=== PATIENT | female | born 1985 | race Caucasian/White ===

== ENCOUNTER 2021-03-20 12:27 | Inpatient (IN) | payer OTHER, MEDICAID, SELFPAY ==
[2021-03-20 12:31] VITALS: BP 129/98; PULSE 110; RESP 18; TEMP 36.9; O2SAT 100; BMI 45.7
--- NOTE | 2021-03-20 12:40 | PC.NURSE ---
Pt belongs to [facility]. residential staff member with patient is gasper Meadows-supervisor edging,
--- NOTE | 2021-03-20 13:19 | ED_ITS ---
HPI - Psych General Chief Complaint: Psychiatric Symptoms Stated Complaint: crisis Time Seen by Provider: 03/20/21 13:18 Source: patient Mode of arrival: ambulatory Limitations: no limitations History of Present Illness HPI Narrative: 35-year-old female with history of borderline personality disorder, anxiety, severe depression with chronic history of self-injury by cutting who presents to the ER from a intermediate with increasing suicidal ideation x1 week with plans to cut herself. She has had recent escalation in her thoughts and behaviors with attempts of self-harm at a intermediate. She reports seeing a very sharp kitchen knife and grabbing and cutting her left forearm. She does have 1 superficial laceration to her left forearm that was glued shut at [facility] a few days ago. She was discharged back to the intermediate. She presents back today with worsening suicidal thoughts. She states she recently lost her grandfather is having a hard time coping. She has been cutting since 1998. She feels like she needs to be admitted inpatient psychiatry. She reports compliance with all her medications and she denies any alcohol or drug use. She has been speaking with her therapist, last was on Tuesday. MD complaint: suicidal ideation and feels depressed Onset (ago): week(s) (1) Duration: constant and getting worse History of same: Yes Relieving factors: none Exacerbating factors: none Context: significant life stressor Associated psychiatric symptoms: depression and suicidal ideation Associated symptoms: denies other symptoms Treatments prior to arrival: none If self harm: admits thoughts of self harm, has plan and has acted on plan Related Data Home Medications Medication Instructions Recorded Confirmed albuterol sulfate 90 mcg/actuation 2 puff INHALATION QID PRN 03/20/21 03/20/21 aerosol inhaler (ProAir HFA) atorvastatin 10 mg tablet 10 mg PO BEDTIME 03/20/21 03/20/21 cholecalciferol (vitamin D3) 50 50 mcg PO DAILY 03/20/21 03/20/21 mcg (2,000 unit) tablet (Vitamin D3) citalopram 40 mg tablet 1 tab PO DAILY 03/20/21 03/20/21 clonazepam 1 mg tablet 1 mg PO BID 03/20/21 03/20/21 clonazepam 1 mg tablet 2 mg PO BEDTIME PRN 03/20/21 03/20/21 clozapine 100 mg tablet 50 mg PO DAILY 03/20/21 03/20/21 clozapine 100 mg tablet 150 mg PO BEDTIME 03/20/21 03/20/21 clozapine 200 mg tablet 200 mg PO BEDTIME 03/20/21 03/20/21 cyproheptadine 4 mg tablet 8 mg PO BEDTIME 03/20/21 03/20/21 docusate sodium 100 mg capsule 100 mg PO BID 03/20/21 03/20/21 (Colace) ibuprofen 400 mg tablet 400 mg PO Q8H PRN 03/20/21 03/20/21 levothyroxine 75 mcg tablet 75 mcg PO DAILY 03/20/21 03/20/21 loratadine 10 mg tablet (Claritin) 10 mg PO DAILY 03/20/21 03/20/21 melatonin 3 mg tablet 6 mg PO BEDTIME 03/20/21 03/20/21 omeprazole 20 mg capsule,delayed 20 mg PO DAILY 03/20/21 03/20/21 release prazosin 2 mg capsule 6 mg PO BEDTIME 03/20/21 03/20/21 quetiapine 100 mg tablet (Seroquel) 100 mg PO BID@0800,1600 03/20/21 03/20/21 quetiapine 200 mg tablet (Seroquel) 200 mg PO BEDTIME 03/20/21 03/20/21 quetiapine 50 mg tablet (Seroquel) 50 mg PO DAILY PRN 03/20/21 03/20/21 Allergies Allergy/AdvReac Type Severity Reaction Status Date / Time clindamycin [CLINDAMYCIN] Allergy Unknown UNKNOWN Unverified 11/15/19 17:13 codeine [CODEINE] Allergy Unknown UNKNOWN Unverified 11/15/19 17:13 erythromycin base Allergy Unknown UNKNOWN Unverified 11/15/19 17:13 [ERYTHROMYCIN BASE] Macrolide Antibiotics Allergy Unknown UNKNOWN Unverified 11/15/19 17:13 [MACROLIDE ANTIBIOTICS] meperidine [From DEMEROL] Allergy Unknown UNKNOWN Unverified 11/15/19 17:13 Penicillins [PENICILLINS] Allergy Unknown UNKNOWN Unverified 11/15/19 17:13 Sulfa (Sulfonamide Allergy Unknown UNKNOWN Unverified 11/15/19 17:13 Antibiotics) [SULFA (SULFONAMIDE ANTIBIOTICS)] Review of Systems Review of Systems: Constitutional: No Fever, No Chills ENT/Mouth: No sore throat, No Rhinorrhea Eyes: No Eye Pain, No Swelling, No Redness Cardiovascular: No Chest Pain, No SOB Respiratory: No Cough, No Sputum, No Wheezing, No dyspnea Gastrointestinal: No Nausea, No Vomiting, No Diarrhea, No abdominal Pain Genitourinary: No Dysuria, No Urinary Frequency, No Hematuria Musculoskeletal: No joint pain, No Myalgias Skin: + Skin Lesions, No rash Neuro: No Weakness, No Numbness, No Dizziness, No Headache Psych: + Anxiety/Panic, + Depression, +SI, No HI, No AH, No VH Heme/Lymph: No Bruising, No Lymphadenopathy [facility] Past Medical History Medical History Behavioral change Psychiatric complaint Self-injurious behavior Social History Social History Advance Directives: No Advance Directives Information Provided: No Patient : No Physical Exam Vital Signs: Vital Signs: Last Vital Signs Temp 98.5 F 03/20/21 12:31 Pulse 110 H 03/20/21 12:31 Resp 18 03/20/21 12:31 BP 129/98 H 03/20/21 12:31 Pulse Ox 100 03/20/21 12:31 BMI result Body Mass Index 45.7 Appearance: Alert. Oriented X3. No acute distress. Eyes: Pupils equal, round and reactive to light. lateral strabismus of each eye ENT: Pharynx normal. Neck: Normal inspection. Neck supple. CVS: Normal heart rate and rhythm. Pulses normal. Respiratory: No respiratory distress. Breath sounds normal. Abdomen: Soft and nontender. +BS x4 Skin: Skin warm and dry. Normal skin color. Normal skin turgor. No rashes. Extremities: No lower extremity edema. bilateral forearms with extensive scarri ng from prior cutting, left dorsal forearm with a 4 cm superficial linear laceration with purple Dermabond in place, no bleeding, no evidence of infection Neuro: Oriented X 3. No motor deficit. No sensory deficit. CN II- XII Course Course Course Narrative: 35-year-old female with history of borderline personality disorder PTSD, depression, anxiety, cutting who presents to the ER with increased suicidal ideation and depression with recent cutting of left forearm. She feels like she needs inpatient level of care at this time. Will get metabolic workup and medically clear, have BHN and evaluate her. Old records reviewed in she was last admitted here on M5 for 10 days in September of 2019. Reevaluation(s) Reevaluation #1: Medical workup is unremarkable. Will place and physician observation at this time. Physician observation started at 3:15pm. Patient placed in physician observation because patient is awaiting [facility] evaluation for the possible need of inpatient psych admission. At the time observation was started patient's vital signs were stable. Patient is alert and oriented. Neuro exam is non-focal. CV: RRR and lungs are clear. Will continue to monitor. MDM - Psych Lab Data Result diagrams: 03/20/21 14:43 03/20/21 14:43 Labs: Lab Results 03/20/21 03/20/21 03/20/21 Range/Units 13:33 13:34 13:34 WBC (4.8-10.8) X10*3/uL RBC (4.20-5.50) X10*6/uL Hgb (12.0-16.0) g/dl Hct (37.0-47.0) % MCV (80.0-98.0) fL MCH (27.0-33.0) pg MCHC (31.0-35.0) g/dl RDW (11.0-16.0) % Plt Count (160-400) X10*3/uL MPV (9.4-12.3) fL Immature Gran % (Auto) (0.0-0.4) % Neut % (Auto) (45-73) % Lymph % (Auto) (20-40) % [place] % (Auto) (2-11) % Eos % (Auto) (0-4) % Baso % (Auto) (0-2) % Lymph # (Auto) (1.2-4.9) X10*3/uL [place] # (Auto) (0.1-1.2) X10*3/uL Eos # (Auto) (0.0-0.4) X10*3/uL Baso # (Auto) (0.0-0.2) X10*3/uL Abs Immat Gran (auto) (0.00-0.03) X10*3/uL Absolute Neuts (auto) (2.0-8.3) x10*3/uL Absolute Nucleated RBC (0.0-0.012) X10*3/uL Nucleated RBC % (auto) (0.0-0.2) /100WBC Sodium (135-145) mmol/L Potassium (3.3-5.1) mmol/L Chloride (96-108) mmol/L Carbon Dioxide (22-29) mmol/L Anion Gap (12-20) BUN (9-16) mg/dL Creatinine (0.5-1.4) mg/dL Estim Creat Clear Calc Estimated GFR Random Glucose (60-115) mg/dL Calcium (8.4-10.2) mg/dL Total Bilirubin (0.0-1.0) mg/dL AST (5-31) U/L ALT (0-31) U/L Alkaline Phosphatase (39-117) U/L Total Protein (6.5-8.0) g/dL Albumin (3.5-5.0) g/dL Urine Color STRAW Urine Appearance CLEAR Urine pH 5.5 (5.0-8.0) Ur Specific [place] 1.010 (1.005-1.025) Urine Protein NEG (NEG-TRACE) MG/DL Urine Glucose (UA) NEG (NEG) MG/DL Urine Ketones NEG (NEG) MG/DL Urine Blood NEG (NEG) Urine Nitrite NEG (NEG) Ur Leukocyte Esterase NEG (NEG) Urine Test NEGATIVE (NEGATIVE) Urine Opiates Screen (Not Detect) Urine Fentanyl Screen (Not Detect) Ur Barbiturates Screen (Not Detect) Ur Phencyclidine Scrn (Not Detect) Ur Amphetamines Screen (Not Detect) U Benzodiazepines Scrn (Not Detect) Urine Cocaine Screen (Not Detect) U Marijuana (THC) Screen (Not Detect) COVID-19 (ANGÉLICA) Negative (Negative) COVID-19 Clin Com See Note 03/20/21 03/20/21 03/20/21 Range/Units 13:34 14:43 14:43 WBC 10.0 (4.8-10.8) X10*3/uL RBC 4.43 (4.20-5.50) X10*6/uL Hgb 12.9 (12.0-16.0) g/dl Hct 38.8 (37.0-47.0) % MCV 87.6 (80.0-98.0) fL MCH 29.1 (27.0-33.0) pg MCHC 33.2 (31.0-35.0) g/dl RDW 12.9 (11.0-16.0) % Plt Count 218 (160-400) X10*3/uL MPV 11.2 (9.4-12.3) fL Immature Gran % (Auto) 0.4 (0.0-0.4) % Neut % (Auto) 70.8 (45-73) % Lymph % (Auto) 23.3 (20-40) % [place] % (Auto) 5.2 (2-11) % Eos % (Auto) 0.0 (0-4) % Baso % (Auto) 0.3 (0-2) % Lymph # (Auto) 2.3 (1.2-4.9) X10*3/uL [place] # (Auto) 0.5 (0.1-1.2) X10*3/uL Eos # (Auto) 0.0 (0.0-0.4) X10*3/uL Baso # (Auto) 0.0 (0.0-0.2) X10*3/uL Abs Immat Gran (auto) 0.04 H (0.00-0.03) X10*3/uL Absolute Neuts (auto) 7.1 (2.0-8.3) x10*3/uL Absolute Nucleated RBC 0.000 (0.0-0.012) X10*3/uL Nucleated RBC % (auto) 0.0 (0.0-0.2) /100WBC Sodium 139 (135-145) mmol/L Potassium 4.1 (3.3-5.1) mmol/L Chloride 106 (96-108) mmol/L Carbon Dioxide 23 (22-29) mmol/L Anion Gap 14 (12-20) BUN 8 L (9-16) mg/dL Creatinine 0.99 (0.5-1.4) mg/dL Estim Creat Clear Calc 105.2 Estimated GFR > 60 Random Glucose 112 (60-115) mg/dL Calcium 10.1 (8.4-10.2) mg/dL Total Bilirubin 0.2 (0.0-1.0) mg/dL AST 14 (5-31) U/L ALT 18 (0-31) U/L Alkaline Phosphatase 90 (39-117) U/L Total Protein 7.9 (6.5-8.0) g/dL Albumin 4.5 (3.5-5.0) g/dL Urine Color Urine Appearance Urine pH (5.0-8.0) Ur Specific [place] (1.005-1.025) Urine Protein (NEG-TRACE) MG/DL Urine Glucose (UA) (NEG) MG/DL Urine Ketones (NEG) MG/DL Urine Blood (NEG) Urine Nitrite (NEG) Ur Leukocyte Esterase (NEG) Urine Test (NEGATIVE) Urine Opiates Screen Not Detected (Not Detect) Urine Fentanyl Screen Not Detected (Not Detect) Ur Barbiturates Screen Not Detected (Not Detect) Ur Phencyclidine Scrn Not Detected (Not Detect) Ur Amphetamines Screen Not Detected (Not Detect) U Benzodiazepines Scrn Not Detected (Not Detect) Urine Cocaine Screen Not Detected (Not Detect) U Marijuana (THC) Screen Not Detected (Not Detect) COVID-19 (ANGÉLICA) (Negative) COVID-19 Clin Com Discharge Plan Discharge Clinical Impression: Depression Qualifiers: Depression Type: major depressive disorder Major depression recurrence: recurrent Active/Remission status: currently active Major depression episode severity: severe Psychotic features: without psychotic features Qualified Code(s): F33.2 - Major depressive disorder, recurrent severe without psychotic features Patient Disposition: Still a Patient Prescriptions: No Action citalopram 40 mg tablet 1 tab PO DAILY RF: 0 atorvastatin 10 mg Tablet 10 mg PO BEDTIME RF: 0 clozapine 100 mg tablet 150 mg PO BEDTIME RF: 0 clozapine 100 mg tablet 50 mg PO DAILY RF: 0 quetiapine [Seroquel] 200 mg Tablet 200 mg PO BEDTIME RF: 0 clonazepam 1 mg Tablet 2 mg PO BEDTIME PRN (Reason: Anxiety) RF: 0 clonazepam 1 mg Tablet 1 mg PO BID RF: 0 melatonin 3 mg Tablet 6 mg PO BEDTIME RF: 0 quetiapine [Seroquel] 100 mg Tablet 100 mg PO BID@0800,1600 RF: 0 levothyroxine 75 mcg Tablet 75 mcg PO DAILY RF: 0 cyproheptadine 4 mg Tablet 8 mg PO BEDTIME RF: 0 ibuprofen 400 mg Tablet 400 mg PO Q8H PRN (Reason: Pain (Scale Score 4-6)) RF: 0 docusate sodium [Colace] 100 mg Capsule 100 mg PO BID RF: 0 omeprazole [Prilosec] 20 mg Capsule,Delayed Release(Dr/Ec) 20 mg PO DAILY RF: 0 albuterol sulfate [ProAir HFA] 90 mcg/actuation Hfa Aerosol Inhaler 2 puff INHALATION QID PRN (Reason: Shortness Of Breath) RF: 0 loratadine [Claritin] 10 mg Tablet 10 mg PO DAILY RF: 0 prazosin 2 mg capsule 6 mg PO BEDTIME RF: 0 clozapine 200 mg tablet 200 mg PO BEDTIME RF: 0 quetiapine [Seroquel] 50 mg Tablet 50 mg PO DAILY PRN (Reason: Anxiety) RF: 0 cholecalciferol (vitamin D3) [Vitamin D3] 50 mcg (2,000 unit) Tablet 50 mcg PO DAILY RF: 0
--- NOTE | 2021-03-20 13:37 | PC.NURSE ---
essie, reports cutting her arm 2 days ago and has dermabond applied by [facility], reports si for 1 week
[2021-03-20 13:47] LABS: Appearance Urine CLEAR; Color Urine STRAW; Glucose Urine UA NEG (NEG); Leukocyte Esterase Urine NEG (NEG); Nitrite Urine NEG (NEG); PH 5.5 (5.0-8.0); UPreg QC Valid YES; Urine Blood NEG (NEG); Urine Ketones NEG (NEG); Urine Protein NEG (NEG-TRACE)
[2021-03-20 13:49] LABS: Urine Pregnancy NEGATIVE (NEGATIVE)
[2021-03-20 14:01] LABS: COVID-19 Test Negative (Negative); IDNOW Serial# 9DD0AD1C
[2021-03-20 14:02] LABS: Amphetamine Screen Urine Not Detected (Not Detect); Barbiturates, Urine Not Detected (Not Detect); Benzodiazepines Screen Urine Not Detected (Not Detect); Cannabinoid Screen Urine Not Detected (Not Detect); Cocaine Screen Urine Not Detected (Not Detect); Fentanyl, urine Not Detected (Not Detect); Opiate Screen Urine Not Detected (Not Detect); Phencyclidine Screen Urine Not Detected (Not Detect)
[2021-03-20 14:47] LABS: MANUAL DIFF FLAG NO
[2021-03-20 14:50] LABS: Basophils Percent Auto 0.3 % (0-2); Hematocrit 38.8 % (37.0-47.0); Hemoglobin 12.9 g/dl (12.0-16.0); Imm Gran Abs Auto 0.04 X10*3/uL (0.00-0.03); Imm Gran Pct Auto 0.4 % (0.0-0.4); Lymphocytes Absolute Auto 2.3 X10*3/uL (1.2-4.9); Lymphocytes Percent Auto 23.3 % (20-40); Mean Corpuscular HGB Conc 33.2 g/dl (31.0-35.0); Mean Corpuscular Hemoglobin 29.1 pg (27.0-33.0); Mean Corpuscular Volume 87.6 fL (80.0-98.0); Mean Platelet Volume 11.2 fL (9.4-12.3); Monocytes Absolute Auto 0.5 X10*3/uL (0.1-1.2); Monocytes Percent Auto 5.2 % (2-11); Neutrophils Absolute Auto 7.1 x10*3/uL (2.0-8.3); Neutrophils Percent Auto 70.8 % (45-73); Platelet Count 218 X10*3/uL (160-400); Red Blood Count 4.43 X10*6/uL (4.20-5.50); Red Cell Distribution Width 12.9 % (11.0-16.0)
[2021-03-20 15:05] LABS: Alanine Aminotransferase 18 U/L (0-31); Albumin Level 4.5 g/dL (3.5-5.0); Alkaline Phosphatase 90 U/L (39-117); Anion Gap 14 (12-20); Aspartate Amino Transferase 14 U/L (5-31); Bilirubin Total 0.2 mg/dL (0.0-1.0); Blood Urea Nitrogen 8 mg/dL (9-16); Calcium 10.1 mg/dL (8.4-10.2); Carbon Dioxide 23 mmol/L (22-29); Chloride 106 mmol/L (96-108); Creatinine Clr Calc Pharmacy 105.2; Estimated Glomerular Filt Rate > 60; Glucose Random 112 mg/dL (60-115); Potassium 4.1 mmol/L (3.3-5.1); Sodium 139 mmol/L (135-145); Total Protein 7.9 g/dL (6.5-8.0)
[2021-03-20] MEDS: clonazePAM 1 MG TABLET 2 MG PO (15:41)
--- NOTE | 2021-03-20 17:07 | PC.NURSE ---
Patient is alert and oriented spoke with Shireen on the care team and was instructed to refer pt to [facility] for eval. Pt is aware of plan of care is compliant and awaiting eval
--- NOTE | 2021-03-20 18:24 | PC.NURSE ---
Patient being evaluated at this time
[2021-03-20] MEDS: Melatonin 3 MG TABLET 6 MG PO (21:15)
[2021-03-20] MEDS: Docusate Sodium 100 MG CAPSULE PO (21:15)
[2021-03-20] MEDS: QUEtiapine Fumarate 200 MG TABLET PO (21:16)
[2021-03-20] MEDS: clonazePAM 1 MG TABLET PO (21:16)
[2021-03-20] MEDS: Prazosin HCL 1 MG CAPSULE 6 MG PO (21:16)
[2021-03-20] MEDS: Atorvastatin Calcium 10 MG TABLET PO (21:16)
[2021-03-20 21:18] VITALS: BP 124/90; PULSE 82; RESP 18; TEMP 36.1; O2SAT 97
[2021-03-20] MEDS: cloZAPine 100 MG TABLET 350 MG PO (22:04)
[2021-03-20] MEDS: Cyproheptadine HCl 4 MG TABLET 8 MG PO (22:05)
[2021-03-21] MEDS: Omeprazole 20 MG CAPSULE.DR PO (05:55)
[2021-03-21] MEDS: Levothyroxine Sodium 75 MCG TABLET PO (05:55)
[2021-03-21 06:14] VITALS: BP 121/63; PULSE 92; RESP 20; TEMP 36.8
--- NOTE | 2021-03-21 06:52 | PC.NURSE ---
Patient slept through the night, no distress observed/reported, medication compliant, behavior appropriate, disposition per [facility] voluntary inpatient bed search, VSS, will continue to monitor.
[2021-03-21] MEDS: Docusate Sodium 100 MG CAPSULE PO ×2 (09:12→20:27)
[2021-03-21] MEDS: Cholecalciferol (Vitamin D3) 25 MCG TABLET 50 MCG PO (09:12)
[2021-03-21] MEDS: Escitalopram Oxalate 20 MG TABLET PO (09:12)
[2021-03-21] MEDS: QUEtiapine Fumarate 100 MG TABLET PO ×2 (09:12→16:43)
[2021-03-21] MEDS: Loratadine 10 MG TABLET PO (09:12)
[2021-03-21] MEDS: clonazePAM 1 MG TABLET PO ×2 (09:13→20:17)
[2021-03-21 09:42] VITALS: BP 97/60; PULSE 88; RESP 16; TEMP 37.1; O2SAT 96
--- NOTE | 2021-03-21 10:30 | PC.NURSE ---
pt bp low this am, holding po clozaril until bp improved.
[2021-03-21 11:20] VITALS: BP 125/74; PULSE 82; RESP 18; O2SAT 97
--- NOTE | 2021-03-21 11:20 | PC.NURSE ---
bp improved, po clozaril given
[2021-03-21] MEDS: cloZAPine 25 MG TABLET 50 MG PO (11:21)
[2021-03-21 15:39] VITALS: BP 135/95; PULSE 83; TEMP 36.5; O2SAT 99
--- NOTE | 2021-03-21 16:47 | PC.NURSE ---
pt appears to have bright affect, took po meds w/o issue. conversing w staff, asking for print out activities. can i have some first grade spelling and phonics, please? . pt in and out of room reporting different shows on tv.
--- NOTE | 2021-03-21 18:41 | PC.NURSE ---
report taken from lilia moy. Pt in room at this time watching tv. Pt interacting well with staff and asked for worksheets to keep her busy. Printed out for patient. Pt in nad will continue to monitor
[2021-03-21] MEDS: Prazosin HCL 1 MG CAPSULE 6 MG PO (20:18)
[2021-03-21] MEDS: clonazePAM 1 MG TABLET 2 MG PO (20:18)
[2021-03-21] MEDS: QUEtiapine Fumarate 200 MG TABLET PO (20:19)
[2021-03-21] MEDS: Melatonin 3 MG TABLET 6 MG PO (20:19)
[2021-03-21] MEDS: Atorvastatin Calcium 10 MG TABLET PO (20:20)
[2021-03-21] MEDS: cloZAPine 100 MG TABLET 350 MG PO (20:21)
[2021-03-21] MEDS: Cyproheptadine HCl 4 MG TABLET 8 MG PO (20:21)
[2021-03-22] MEDS: Omeprazole 20 MG CAPSULE.DR PO (05:55)
[2021-03-22] MEDS: Levothyroxine Sodium 75 MCG TABLET PO (05:55)
--- NOTE | 2021-03-22 06:26 | PC.NURSE ---
Patient slept through the night, no distress observed/reported, medication compliant, behavior appropriate, disposition per [facility] voluntary inpatient bed search, VSS, will continue to monitor
--- NOTE | 2021-03-22 07:42 | PC.NURSE ---
Pt resting quietly in room, watching TV. No complaints at this time. forearm injuries healing w/o s/s infection. Pt has no complaints, has eaten full breakfast
[2021-03-22] MEDS: Escitalopram Oxalate 20 MG TABLET PO (08:29)
[2021-03-22] MEDS: Docusate Sodium 100 MG CAPSULE PO ×2 (08:29→20:01)
[2021-03-22] MEDS: Cholecalciferol (Vitamin D3) 25 MCG TABLET 50 MCG PO (08:29)
[2021-03-22] MEDS: clonazePAM 1 MG TABLET PO ×2 (08:29→20:01)
[2021-03-22] MEDS: Loratadine 10 MG TABLET PO (08:29)
[2021-03-22] MEDS: QUEtiapine Fumarate 100 MG TABLET PO ×2 (08:29→16:06)
[2021-03-22] MEDS: cloZAPine 25 MG TABLET 50 MG PO (09:22)
--- NOTE | 2021-03-22 13:18 | PC.NURSE ---
Pt has been calm, in room mostly, eating and drinking. No self harm behaviours during this shift. wounds left forearm healing.
[2021-03-22] MEDS: Melatonin 3 MG TABLET 6 MG PO (20:01)
[2021-03-22] MEDS: Prazosin HCL 1 MG CAPSULE 6 MG PO (20:01)
[2021-03-22] MEDS: QUEtiapine Fumarate 200 MG TABLET PO (20:01)
[2021-03-22] MEDS: Atorvastatin Calcium 10 MG TABLET PO (20:01)
[2021-03-22 20:09] VITALS: BP 105/70; PULSE 84; TEMP 36.5; O2SAT 96
[2021-03-22] MEDS: cloZAPine 100 MG TABLET 350 MG PO (20:21)
[2021-03-22] MEDS: Cyproheptadine HCl 4 MG TABLET 8 MG PO (20:21)
--- NOTE | 2021-03-23 | ECG_ITS ---
Test Reason : medical clearance Blood Pressure : / mmHG Vent. Rate : 087 BPM Atrial Rate : 087 BPM P-R Int : 204 ms QRS Dur : 092 ms QT Int : 398 ms P-R-T Axes : 045 000 000 degrees QTc Int : 478 ms Normal sinus rhythm Normal ECG No previous ECGs available Referred By: Laurie Baker Electronically Signed By:GILL LOERA MD
[2021-03-23] MEDS: Levothyroxine Sodium 75 MCG TABLET PO (06:02)
[2021-03-23] MEDS: Omeprazole 20 MG CAPSULE.DR PO (06:02)
--- NOTE | 2021-03-23 06:09 | PC.NURSE ---
Patient slept through the night, no distress observed/reported, medication compliant, behavior appropriate, disposition per [facility] voluntary inpatient bed search, no update on bed search, VSS, will continue to monitor
[2021-03-23 06:35] VITALS: BP 102/62; PULSE 99; RESP 18; TEMP 36.7; O2SAT 99
--- NOTE | 2021-03-23 07:20 | PC.NURSE ---
patient appears to remain asleep at present, respirations are even and unlabored patient appears in no distress
[2021-03-23] MEDS: Loratadine 10 MG TABLET PO (09:11)
[2021-03-23] MEDS: Docusate Sodium 100 MG CAPSULE PO ×2 (09:11→22:12)
[2021-03-23] MEDS: Cholecalciferol (Vitamin D3) 25 MCG TABLET 50 MCG PO (09:11)
[2021-03-23] MEDS: clonazePAM 1 MG TABLET PO ×2 (09:11→22:13)
[2021-03-23] MEDS: cloZAPine 25 MG TABLET 50 MG PO (09:11)
[2021-03-23] MEDS: QUEtiapine Fumarate 100 MG TABLET PO ×2 (09:11→15:13)
[2021-03-23] MEDS: Escitalopram Oxalate 20 MG TABLET PO (09:11)
[2021-03-23 13:35] LABS: COVID-19 Test Negative (Negative)
--- NOTE | 2021-03-23 20:30 | P.HPPS_ITS ---
HPI Chief Complaint: crisis [facility] Medical History Behavioral change Psychiatric complaint Self-injurious behavior Diagnostics Vital Signs (24Hr): Vital Signs - 24 hr 03/23/21 06:35 Temperature 98.0 F Pulse Rate 99 Respiratory Rate 18 Blood Pressure 102/62 Pulse Oximetry 99 BMI result Body Mass Index 45.7 Labs Results: 03/20/21 14:43 03/20/21 14:43 Labs: Laboratory Results - last 48 hr 03/23/21 13:14 COVID-19 (ANGÉLICA) Negative COVID-19 Clin Com See Note Meds/Allergies Meds Home Medications Albuterol Sulfate (Albuterol Sulfate 90 Mcg 8 Gm Inhaler) 2 puff INHALE QID PRN PRN Reason: Shortness Of Breath Atorvastatin Calcium (Atorvastatin Calcium 10 Mg Tablet) 10 mg PO BEDTIME [facility] Last Admin: 03/22/21 20:01 Dose: 10 mg Documented by: Clonazepam (Clonazepam 1 Mg Tablet) 1 mg PO BID [facility] Last Admin: 03/23/21 09:11 Dose: 1 mg Documented by: Clonazepam (Clonazepam 1 Mg Tablet) 2 mg PO BEDTIME PRN PRN Reason: Anxiety Last Admin: 03/21/21 20:18 Dose: 2 mg Documented by: Clozapine (Clozapine 25 Mg Tablet) 50 mg PO DAILY [facility] Last Admin: 03/23/21 09:11 Dose: 50 mg Documented by: Clozapine (Clozapine 100 Mg Tablet) 350 mg PO BEDTIME [facility] Last Admin: 03/22/21 20:21 Dose: 350 mg Documented by: Cyproheptadine HCl (Cyproheptadine Hcl 4 Mg Tablet) 8 mg PO BEDTIME [facility] Last Admin: 03/22/21 20:21 Dose: 8 mg Documented by: Docusate Sodium (Docusate Sodium 100 Mg Capsule) 100 mg PO BID [facility] Last Admin: 03/23/21 09:11 Dose: 100 mg Documented by: Escitalopram Oxalate (Escitalopram Oxalate 20 Mg Tablet) 20 mg PO DAILY [facility] Last Admin: 03/23/21 09:11 Dose: 20 mg Documented by: Ibuprofen (Ibuprofen 400 Mg Tablet) 400 mg PO Q8H PRN PRN Reason: Pain (Scale Score 4-6) Levothyroxine Sodium (Levothyroxine Sodium 75 Mcg Tablet) 75 mcg PO DAILY@0630 [facility] Last Admin: 03/23/21 06:02 Dose: 75 mcg Documented by: Loratadine (Loratadine 10 Mg Tablet) 10 mg PO DAILY [facility] Last Admin: 03/23/21 09:11 Dose: 10 mg Documented by: Melatonin (Melatonin 3 Mg Tablet) 6 mg PO BEDTIME [facility] Last Admin: 03/22/21 20:01 Dose: 6 mg Documented by: Omeprazole (Omeprazole 20 Mg Capsule.Dr) 20 mg PO DAILY@0630 [facility] Last Admin: 03/23/21 06:02 Dose: 20 mg Documented by: Prazosin HCl (Prazosin Hcl 1 Mg Capsule) 6 mg PO BEDTIME [facility]; Protocol Last Admin: 03/22/21 20:01 Dose: 6 mg Documented by: Quetiapine Fumarate (Quetiapine Fumarate 50 Mg Tablet) 50 mg PO DAILY PRN PRN Reason: Anxiety Quetiapine Fumarate (Quetiapine Fumarate 100 Mg Tablet) 100 mg PO BID@0800,1600 [facility] Last Admin: 03/23/21 15:13 Dose: 100 mg Documented by: Quetiapine Fumarate (Quetiapine Fumarate 200 Mg Tablet) 200 mg PO BEDTIME [facility] Last Admin: 03/22/21 20:01 Dose: 200 mg Documented by: Vitamin D (Cholecalciferol (Vitamin D3) 25 Mcg Tablet) 50 mcg PO DAILY [facility] Last Admin: 03/23/21 09:11 Dose: 50 mcg Documented by: Allergies Allergies Allergy/AdvReac Type Severity Reaction Status Date / Time clindamycin [CLINDAMYCIN] Allergy Unknown UNKNOWN Unverified 11/15/19 17:13 codeine [CODEINE] Allergy Unknown UNKNOWN Unverified 11/15/19 17:13 erythromycin base Allergy Unknown UNKNOWN Unverified 11/15/19 17:13 [ERYTHROMYCIN BASE] Macrolide Antibiotics Allergy Unknown UNKNOWN Unverified 11/15/19 17:13 [MACROLIDE ANTIBIOTICS] meperidine [From DEMEROL] Allergy Unknown UNKNOWN Unverified 11/15/19 17:13 Penicillins [PENICILLINS] Allergy Unknown UNKNOWN Unverified 11/15/19 17:13 Sulfa (Sulfonamide Allergy Unknown UNKNOWN Unverified 11/15/19 17:13 Antibiotics) [SULFA (SULFONAMIDE ANTIBIOTICS)]
[2021-03-23 21:30] VITALS: BP 124/71; PULSE 85; RESP 18; TEMP 36.8; O2SAT 99
[2021-03-23] MEDS: cloZAPine 100 MG TABLET 350 MG PO (22:11)
[2021-03-23] MEDS: Cyproheptadine HCl 4 MG TABLET 8 MG PO (22:12)
[2021-03-23] MEDS: QUEtiapine Fumarate 200 MG TABLET PO (22:13)
[2021-03-23] MEDS: Melatonin 3 MG TABLET 6 MG PO (22:13)
[2021-03-23] MEDS: Atorvastatin Calcium 10 MG TABLET PO (22:14)
--- NOTE | 2021-03-23 23:38 | PC.NURSE ---
Patient was not given HS Minipress 6 mg. We did not have enough in [facility] and while we were waiting for it to be refilled, patient fell asleep. Nurse attempted to wake patient, but patient was in a deep sleep.
--- NOTE | 2021-03-24 03:33 | PC.ADMIT ---
Josselyn is a 35 year old [place] speaking female admitted from the ED at 2118. Patient reported that her grandfather and has been having a hard time dealing with his . Patient has presented with an increase in anxiety, depression, sadness, and suicidal thinking with self harm thoughts. Patient has a history of cutting and made a laceration to her left lower arm using a staple. No signs of infection noted on the wound. patient s tox screen was negative. Covid negative. Josselyn has a hx of Asthma. Patient currently resides in a snf and can return there after hospitalization. Patient currently reports elevated anxiety and depression. SI+, but contracted for safety and stated she would come to staff immediately if she starts to have any self harm thoughts. Patient appears developmentally delayed and is childlike in behavior at times. Patient was pleasant and cooperative with admission. Patient was focused on making sure she is able to watch [employer] in the morning . Patient denies any pain or discomfort at this time.
[2021-03-24 06:00] VITALS: BP 118/83; PULSE 93; RESP 17; TEMP 35.9; O2SAT 95
[2021-03-24 08:08] LABS: Cholesterol 205 mg/dL; HDL Cholesterol 41 mg/dL; LDL Cholesterol Calculated 89 mg/dl; Magnesium 2.2 mg/dL (1.6-2.6); Triglycerides 376 mg/dL
[2021-03-24 08:31] LABS: Free T4 (Free Thyroxine) 0.88 ng/dL (0.71-1.85); Thyroid Stimulating Hormone 2.14 uIU/mL (0.32-4.0)
[2021-03-24 08:46] LABS: Estimated Average Glucose 94 mg/dL; Hemoglobin A1c % 4.9 %
[2021-03-24] MEDS: Omeprazole 20 MG CAPSULE.DR PO (09:07)
[2021-03-24] MEDS: Docusate Sodium 100 MG CAPSULE PO ×2 (09:07→20:06)
[2021-03-24] MEDS: cloZAPine 25 MG TABLET 50 MG PO (09:08)
[2021-03-24] MEDS: clonazePAM 1 MG TABLET PO ×2 (09:08→20:06)
[2021-03-24] MEDS: Cholecalciferol (Vitamin D3) 25 MCG TABLET 50 MCG PO (09:08)
[2021-03-24] MEDS: Levothyroxine Sodium 75 MCG TABLET PO (09:08)
[2021-03-24] MEDS: Escitalopram Oxalate 20 MG TABLET PO (09:09)
[2021-03-24] MEDS: Loratadine 10 MG TABLET PO (09:09)
[2021-03-24] MEDS: QUEtiapine Fumarate 100 MG TABLET PO ×2 (09:10→15:22)
[2021-03-24 09:34] LABS: Folate 4.6 ng/mL (> or = 4.0); Vitamin B12 388 pg/mL (200-900)
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
[2021-03-24] MEDS: clonazePAM 0.5 MG TABLET PO (15:22)
[2021-03-24 18:00] VITALS: BP 128/89; PULSE 99; RESP 18; TEMP 36.7; O2SAT 96
[2021-03-24] MEDS: Cyproheptadine HCl 4 MG TABLET 8 MG PO (20:03)
[2021-03-24] MEDS: Melatonin 3 MG TABLET 6 MG PO (20:04)
[2021-03-24] MEDS: Prazosin HCL 1 MG CAPSULE 6 MG PO (20:04)
[2021-03-24] MEDS: cloZAPine 100 MG TABLET 350 MG PO (20:04)
[2021-03-24] MEDS: Atorvastatin Calcium 10 MG TABLET PO (20:05)
[2021-03-24] MEDS: QUEtiapine Fumarate 200 MG TABLET PO (20:06)
[2021-03-25 08:10] VITALS: BP 133/85; PULSE 94; RESP 16; TEMP 36.3; O2SAT 95
[2021-03-25] MEDS: Levothyroxine Sodium 75 MCG TABLET PO (08:16)
[2021-03-25] MEDS: Docusate Sodium 100 MG CAPSULE PO ×2 (08:16→21:30)
[2021-03-25] MEDS: QUEtiapine Fumarate 100 MG TABLET PO ×2 (08:17→16:10)
[2021-03-25] MEDS: clonazePAM 1 MG TABLET PO (08:17)
[2021-03-25] MEDS: cloZAPine 25 MG TABLET 50 MG PO (08:17)
[2021-03-25] MEDS: Loratadine 10 MG TABLET PO (08:17)
[2021-03-25] MEDS: Escitalopram Oxalate 20 MG TABLET PO (08:17)
[2021-03-25] MEDS: Cholecalciferol (Vitamin D3) 25 MCG TABLET 50 MCG PO (08:17)
[2021-03-25] MEDS: Omeprazole 20 MG CAPSULE.DR PO (08:17)
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
[2021-03-25] MEDS: clonazePAM 0.5 MG TABLET PO (16:10)
[2021-03-25 21:24] VITALS: BP 124/76; PULSE 94; TEMP 36.6; O2SAT 94
[2021-03-25] MEDS: Prazosin HCL 1 MG CAPSULE 6 MG PO (21:29)
[2021-03-25] MEDS: Melatonin 3 MG TABLET 6 MG PO (21:30)
[2021-03-25] MEDS: QUEtiapine Fumarate 200 MG TABLET PO (21:30)
[2021-03-25] MEDS: Atorvastatin Calcium 10 MG TABLET PO (21:30)
[2021-03-25] MEDS: Cyproheptadine HCl 4 MG TABLET 8 MG PO (21:31)
[2021-03-25] MEDS: cloZAPine 100 MG TABLET 350 MG PO (21:31)
[2021-03-25] MEDS: hydrOXYzine HCL 25 MG TABLET PO (23:47)
[2021-03-25] MEDS: traZODone HCL 50 MG TABLET PO (23:47)
[2021-03-26 07:00] VITALS: BMI 47.5
[2021-03-26] MEDS: Cholecalciferol (Vitamin D3) 25 MCG TABLET 50 MCG PO (08:33)
[2021-03-26] MEDS: Escitalopram Oxalate 20 MG TABLET PO (08:34)
[2021-03-26] MEDS: Omeprazole 20 MG CAPSULE.DR PO (08:34)
[2021-03-26] MEDS: Levothyroxine Sodium 75 MCG TABLET PO (08:34)
[2021-03-26] MEDS: cloZAPine 25 MG TABLET 50 MG PO (08:34)
[2021-03-26] MEDS: Docusate Sodium 100 MG CAPSULE PO ×2 (08:34→20:36)
[2021-03-26] MEDS: Loratadine 10 MG TABLET PO (08:34)
[2021-03-26] MEDS: QUEtiapine Fumarate 100 MG TABLET PO ×2 (08:34→16:01)
[2021-03-26 08:40] VITALS: BP 110/60; PULSE 84; RESP 16; TEMP 36.5; O2SAT 94
[2021-03-26] MEDS: hydrOXYzine HCL 25 MG TABLET PO (14:33)
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
[2021-03-26] MEDS: clonazePAM 0.5 MG TABLET PO (16:01)
[2021-03-26] MEDS: QUEtiapine Fumarate 50 MG TABLET PO (16:15)
[2021-03-26 18:00] VITALS: BP 129/65; PULSE 80; RESP 18; TEMP 36.9; O2SAT 98
[2021-03-26] MEDS: Prazosin HCL 1 MG CAPSULE 8 MG PO (20:36)
[2021-03-26] MEDS: cloZAPine 100 MG TABLET 350 MG PO (20:36)
[2021-03-26] MEDS: traZODone HCL 50 MG TABLET PO (20:37)
[2021-03-26] MEDS: Melatonin 3 MG TABLET 6 MG PO (20:37)
[2021-03-26] MEDS: Cyproheptadine HCl 4 MG TABLET 8 MG PO (20:37)
[2021-03-26] MEDS: Atorvastatin Calcium 10 MG TABLET PO (20:38)
[2021-03-26] MEDS: QUEtiapine Fumarate 200 MG TABLET PO (20:38)
[2021-03-27 07:23] LABS: MANUAL DIFF FLAG NO
[2021-03-27 07:25] LABS: Basophils Percent Auto 0.1 % (0-2); Hematocrit 36.8 % (37.0-47.0); Hemoglobin 12.2 g/dl (12.0-16.0); Imm Gran Abs Auto 0.06 X10*3/uL (0.00-0.03); Imm Gran Pct Auto 0.6 % (0.0-0.4); Lymphocytes Absolute Auto 3.5 X10*3/uL (1.2-4.9); Lymphocytes Percent Auto 36.7 % (20-40); Mean Corpuscular HGB Conc 33.2 g/dl (31.0-35.0); Mean Corpuscular Hemoglobin 29.1 pg (27.0-33.0); Mean Corpuscular Volume 87.8 fL (80.0-98.0); Mean Platelet Volume 10.9 fL (9.4-12.3); Monocytes Absolute Auto 0.7 X10*3/uL (0.1-1.2); Monocytes Percent Auto 7.8 % (2-11); Neut%MD 53.8 %; Neutrophils Absolute Auto 5.1 x10*3/uL (2.0-8.3); Neutrophils Percent Auto 54.8 % (45-73); Platelet Count 207 X10*3/uL (160-400); Red Blood Count 4.19 X10*6/uL (4.20-5.50); Red Cell Distribution Width 13.2 % (11.0-16.0); WBCANC 9.5 X10*3/uL; White Blood Count 9.4 X10*3/uL (4.8-10.8)
[2021-03-27] MEDS: Omeprazole 20 MG CAPSULE.DR PO (09:57)
[2021-03-27] MEDS: Loratadine 10 MG TABLET PO (09:57)
[2021-03-27] MEDS: Cholecalciferol (Vitamin D3) 25 MCG TABLET 50 MCG PO (09:57)
[2021-03-27] MEDS: cloZAPine 25 MG TABLET 50 MG PO (09:57)
[2021-03-27] MEDS: Escitalopram Oxalate 20 MG TABLET PO (09:57)
[2021-03-27] MEDS: Docusate Sodium 100 MG CAPSULE PO ×2 (09:57→21:58)
[2021-03-27] MEDS: Levothyroxine Sodium 75 MCG TABLET PO (09:57)
[2021-03-27] MEDS: QUEtiapine Fumarate 100 MG TABLET PO ×2 (09:57→16:25)
[2021-03-27 10:54] VITALS: BP 130/87; PULSE 100; RESP 17; TEMP 36.3; O2SAT 96
[2021-03-27] MEDS: clonazePAM 1 MG TABLET PO ×2 (11:38→21:59)
--- NOTE | 2021-03-27 13:46 | HO.PSYCHPN ---
Subjective Subjective Date of Service: 03/27/21 Reason For Visit: crisis Interim History: pt reports she had a very hard day yesterday, saying she experienced a panic attack from 4 pm to 8 pm. she states this is the usual length of time of her panic attacks. she states her klonopin was DCed and asks it be reinstated; per chart review, it does appear klonopin has fallen off and MD re-orders it. states she feels that prazosin is working , however, saying she experienced no nightmares last night. per staff, c/o insomnia. c/o anx/dep 11/07. no SI, but SIBI to scratch arms. feeling a bit better yesterday, however in the afternoon was shaking and hyperventilating. Mental Status Exam Mental Status Exam Narrative: gaze palsy, wearing a dress, lac scars on both forearms with healing wound on left forearm from recent laceration. cooperative with interview. no PMA/PMR. speech incr in rate and amount. decr latency. nml tone. thoughts linear and logical. affect constricted, consistent with context, normo-intense, non-labile. having SIBI. no HI/AVH expressed. Diagnostics Vital Signs (24Hr): Vital Signs - 24 hr 03/26/21 18:00 03/27/21 10:54 Temperature 98.4 F 97.3 F Pulse Rate 80 100 Respiratory Rate 18 17 Blood Pressure 129/65 130/87 Pulse Oximetry 98 96 BMI result Body Mass Index 47.5 Labs Results: 03/27/21 07:12 03/20/21 14:43 Labs: Laboratory Results - last 48 hr 03/27/21 03/27/21 07:12 07:12 WBC 9.4 RBC 4.19 L Hgb 12.2 Hct 36.8 L MCV 87.8 MCH 29.1 MCHC 33.2 RDW 13.2 Plt Count 207 MPV 10.9 Immature Gran % (Auto) 0.6 H Neut % (Auto) 54.8 Lymph % (Auto) 36.7 [place] % (Auto) 7.8 Eos % (Auto) 0.0 Baso % (Auto) 0.1 Lymph # (Auto) 3.5 [place] # (Auto) 0.7 Eos # (Auto) 0.0 Baso # (Auto) 0.0 Abs Immat Gran (auto) 0.06 H Absolute Neuts (auto) 5.1 5.1 Absolute Nucleated RBC 0.000 Nucleated RBC % (auto) 0.0 Medications Medications Current Medications Acetaminophen (Acetaminophen 325 Mg Tablet) 650 mg PO Q6H PRN PRN Reason: Headache/Pain Mild Scale (1-3) Al Hydroxide/Mg Hydroxide (Magnesium Hydrox/Alum Hydrox 30 Ml Oral.Susp) 30 ml PO Q6H PRN PRN Reason: Heartburn/Nausea Albuterol Sulfate (Albuterol Sulfate 90 Mcg 8 Gm Inhaler) 2 puff INHALE QID PRN PRN Reason: Shortness Of Breath Atorvastatin Calcium (Atorvastatin Calcium 10 Mg Tablet) 10 mg PO BEDTIME [facility] Last Admin: 03/26/21 20:38 Dose: 10 mg Documented by: Clonazepam (Clonazepam 0.5 Mg Tablet) 0.5 mg PO DAILY@1600 [facility] Last Admin: 03/26/21 16:01 Dose: 0.5 mg Documented by: Clonazepam (Clonazepam 1 Mg Tablet) 1 mg PO BID [facility] Last Admin: 03/27/21 11:38 Dose: 1 mg Documented by: Clozapine (Clozapine 25 Mg Tablet) 50 mg PO DAILY [facility] Last Admin: 03/27/21 09:57 Dose: 50 mg Documented by: Clozapine (Clozapine 100 Mg Tablet) 350 mg PO BEDTIME [facility] Last Admin: 03/26/21 20:36 Dose: 350 mg Documented by: Cyproheptadine HCl (Cyproheptadine Hcl 4 Mg Tablet) 8 mg PO BEDTIME [facility] Last Admin: 03/26/21 20:37 Dose: 8 mg Documented by: Docusate Sodium (Docusate Sodium 100 Mg Capsule) 100 mg PO BID [facility] Last Admin: 03/27/21 09:57 Dose: 100 mg Documented by: Escitalopram Oxalate (Escitalopram Oxalate 20 Mg Tablet) 20 mg PO DAILY [facility] Last Admin: 03/27/21 09:57 Dose: 20 mg Documented by: Hydroxyzine HCl (Hydroxyzine Hcl 25 Mg Tablet) 25 mg PO Q6H PRN PRN Reason: Anxiety Last Admin: 03/26/21 14:33 Dose: 25 mg Documented by: Ibuprofen (Ibuprofen 400 Mg Tablet) 400 mg PO Q8H PRN PRN Reason: Pain (Scale Score 4-6) Levothyroxine Sodium (Levothyroxine Sodium 75 Mcg Tablet) 75 mcg PO DAILY@0630 [facility] Last Admin: 03/27/21 09:57 Dose: 75 mcg Documented by: Loratadine (Loratadine 10 Mg Tablet) 10 mg PO DAILY [facility] Last Admin: 03/27/21 09:57 Dose: 10 mg Documented by: Magnesium Hydroxide (Milk Of Magnesia 30 Ml Oral.Susp) 30 ml PO DAILY PRN PRN Reason: Constipation Melatonin (Melatonin 3 Mg Tablet) 6 mg PO BEDTIME [facility] Last Admin: 03/26/21 20:37 Dose: 6 mg Documented by: Omeprazole (Omeprazole 20 Mg Capsule.Dr) 20 mg PO DAILY@0630 [facility] Last Admin: 03/27/21 09:57 Dose: 20 mg Documented by: Prazosin HCl (Prazosin Hcl 1 Mg Capsule) 8 mg PO BEDTIME [facility]; Protocol Last Admin: 03/26/21 20:36 Dose: 8 mg Documented by: Quetiapine Fumarate (Quetiapine Fumarate 50 Mg Tablet) 50 mg PO DAILY PRN PRN Reason: Anxiety Last Admin: 03/26/21 16:15 Dose: 50 mg Documented by: Quetiapine Fumarate (Quetiapine Fumarate 100 Mg Tablet) 100 mg PO BID@0800,1600 [facility] Last Admin: 03/27/21 09:57 Dose: 100 mg Documented by: Quetiapine Fumarate (Quetiapine Fumarate 200 Mg Tablet) 200 mg PO BEDTIME [facility] Last Admin: 03/26/21 20:38 Dose: 200 mg Documented by: Trazodone HCl (Trazodone Hcl 50 Mg Tablet) 50 mg PO BEDTIME PRN PRN Reason: Insomnia Last Admin: 03/26/21 20:37 Dose: 50 mg Documented by: Vitamin D (Cholecalciferol (Vitamin D3) 25 Mcg Tablet) 50 mcg PO DAILY [facility] Last Admin: 03/27/21 09:57 Dose: 50 mcg Documented by: Allergies Allergies Allergy/AdvReac Type Severity Reaction Status Date / Time clindamycin [CLINDAMYCIN] Allergy Unknown UNKNOWN Unverified 11/15/19 17:13 codeine [CODEINE] Allergy Unknown UNKNOWN Unverified 11/15/19 17:13 erythromycin base Allergy Unknown UNKNOWN Unverified 11/15/19 17:13 [ERYTHROMYCIN BASE] Macrolide Antibiotics Allergy Unknown UNKNOWN Unverified 11/15/19 17:13 [MACROLIDE ANTIBIOTICS] meperidine [From DEMEROL] Allergy Unknown UNKNOWN Unverified 11/15/19 17:13 Penicillins [PENICILLINS] Allergy Unknown UNKNOWN Unverified 11/15/19 17:13 Sulfa (Sulfonamide Allergy Unknown UNKNOWN Unverified 11/15/19 17:13 Antibiotics) [SULFA (SULFONAMIDE ANTIBIOTICS)] Assessment & Plan Assessment & Plan (1) Depression: Qualifiers: Active/Remission status: currently active Depression Type: major depressive disorder Major depression episode severity: severe Major depression recurrence: recurrent Psychotic features: without psychotic features Qualified Code(s): F33.2 - Major depressive disorder, recurrent severe without psychotic features Status: Acute Code(s): F32.A - Depression, unspecified Assessment and Plan: increased klonopin by 0.5 mg at 1600 per pt request. otherwise continued outpt regimen. contacted loy for guidance on Tx of depression and panic. loy suggested DC lexapro replace with celexa. 03/26 prazosin increased from 6 mg QHS to 8 mg QHS. 03/27 celexa 40 mg to be started once delivered by [facility]. (2) Nonsuicidal self-injury: Status: Acute Code(s): R45.88 - Nonsuicidal self-harm Assessment and Plan: safe environment Q15 min checks Plan as above I spent minutes with the patient and/or on the patient floor today, greater than?50% of which was spent counseling/coordinating care. Reason for contiued inpatient stay Substantial Risk for: harm to self, inability to function and rapid decompensation
[2021-03-27] MEDS: clonazePAM 0.5 MG TABLET PO (16:24)
[2021-03-27] MEDS: Melatonin 3 MG TABLET 6 MG PO (21:58)
[2021-03-27] MEDS: cloZAPine 100 MG TABLET 350 MG PO (21:58)
[2021-03-27] MEDS: Cyproheptadine HCl 4 MG TABLET 8 MG PO (21:59)
[2021-03-27] MEDS: Atorvastatin Calcium 10 MG TABLET PO (21:59)
[2021-03-27] MEDS: QUEtiapine Fumarate 200 MG TABLET PO (21:59)
[2021-03-27 22:00] VITALS: BP 130/63; PULSE 90; TEMP 36.4; O2SAT 91
[2021-03-27] MEDS: Prazosin HCL 1 MG CAPSULE 3 MG PO (22:00)
[2021-03-27] MEDS: Prazosin HCL 5 MG CAPSULE PO (22:00)
[2021-03-28 08:00] VITALS: BP 130/70; PULSE 87; RESP 16; TEMP 36.4; O2SAT 93
[2021-03-28] MEDS: Omeprazole 20 MG CAPSULE.DR PO (09:39)
[2021-03-28] MEDS: Cholecalciferol (Vitamin D3) 25 MCG TABLET 50 MCG PO (09:39)
[2021-03-28] MEDS: QUEtiapine Fumarate 100 MG TABLET PO ×2 (09:39→16:00)
[2021-03-28] MEDS: Loratadine 10 MG TABLET PO (09:39)
[2021-03-28] MEDS: Levothyroxine Sodium 75 MCG TABLET PO (09:39)
[2021-03-28] MEDS: Docusate Sodium 100 MG CAPSULE PO ×2 (09:39→20:26)
[2021-03-28] MEDS: cloZAPine 25 MG TABLET 50 MG PO (09:39)
[2021-03-28] MEDS: clonazePAM 1 MG TABLET PO ×2 (09:39→20:27)
[2021-03-28] MEDS: Albuterol Sulfate 90 MCG 8 GM INHALER 2 PUFF INHALE (10:56)
--- NOTE | 2021-03-28 12:58 | HO.PSYCHPN ---
Subjective Subjective Date of Service: 03/28/21 Reason For Visit: crisis Interim History: The nursing staff reported that she had flasbacks and anxiety in the evening. She spent most of the day on bed. Today, she was in her bed, taking a nap, denies exacerbation of anxiety or depression. NO safety concerns. Mental Status Exam Mental Status Exam Patient Appearance: Well Grooomed Patient Orientation: Person Level of Consciousness: Awake Patient Behavior: Appropriate Mood Description: Constricted Affect Description: Withdrawn Ability to Follow Directions: Good Speech Pattern: Clear Delusions: Not Present Thought Process: Distracted Thought Content: positive for Poverty of Content and positive for Thought Blocking Judgement: Fair Diagnostics Vital Signs (24Hr): Vital Signs - 24 hr 03/27/21 22:00 03/28/21 08:00 Temperature 97.5 F 97.5 F Pulse Rate 90 87 Respiratory Rate 16 Blood Pressure 130/63 130/70 Pulse Oximetry 91 L 93 BMI result Body Mass Index 47.5 Labs Results: 03/27/21 07:12 03/20/21 14:43 Labs: Laboratory Results - last 48 hr 03/27/21 03/27/21 07:12 07:12 WBC 9.4 RBC 4.19 L Hgb 12.2 Hct 36.8 L MCV 87.8 MCH 29.1 MCHC 33.2 RDW 13.2 Plt Count 207 MPV 10.9 Immature Gran % (Auto) 0.6 H Neut % (Auto) 54.8 Lymph % (Auto) 36.7 [place] % (Auto) 7.8 Eos % (Auto) 0.0 Baso % (Auto) 0.1 Lymph # (Auto) 3.5 [place] # (Auto) 0.7 Eos # (Auto) 0.0 Baso # (Auto) 0.0 Abs Immat Gran (auto) 0.06 H Absolute Neuts (auto) 5.1 5.1 Absolute Nucleated RBC 0.000 Nucleated RBC % (auto) 0.0 Medications Medications Current Medications Acetaminophen (Acetaminophen 325 Mg Tablet) 650 mg PO Q6H PRN PRN Reason: Headache/Pain Mild Scale (1-3) Al Hydroxide/Mg Hydroxide (Magnesium Hydrox/Alum Hydrox 30 Ml Oral.Susp) 30 ml PO Q6H PRN PRN Reason: Heartburn/Nausea Albuterol Sulfate (Albuterol Sulfate 90 Mcg 8 Gm Inhaler) 2 puff INHALE QID PRN PRN Reason: Shortness Of Breath Last Admin: 03/28/21 10:56 Dose: 2 puff Documented by: Atorvastatin Calcium (Atorvastatin Calcium 10 Mg Tablet) 10 mg PO BEDTIME [facility] Last Admin: 03/27/21 21:59 Dose: 10 mg Documented by: Clonazepam (Clonazepam 0.5 Mg Tablet) 0.5 mg PO DAILY@1600 [facility] Last Admin: 03/27/21 16:24 Dose: 0.5 mg Documented by: Clonazepam (Clonazepam 1 Mg Tablet) 1 mg PO BID [facility] Last Admin: 03/28/21 09:39 Dose: 1 mg Documented by: Clozapine (Clozapine 25 Mg Tablet) 50 mg PO DAILY [facility] Last Admin: 03/28/21 09:39 Dose: 50 mg Documented by: Clozapine (Clozapine 100 Mg Tablet) 350 mg PO BEDTIME [facility] Last Admin: 03/27/21 21:58 Dose: 350 mg Documented by: Cyproheptadine HCl (Cyproheptadine Hcl 4 Mg Tablet) 8 mg PO BEDTIME [facility] Last Admin: 03/27/21 21:59 Dose: 8 mg Documented by: Docusate Sodium (Docusate Sodium 100 Mg Capsule) 100 mg PO BID [facility] Last Admin: 03/28/21 09:39 Dose: 100 mg Documented by: Hydroxyzine HCl (Hydroxyzine Hcl 25 Mg Tablet) 25 mg PO Q6H PRN PRN Reason: Anxiety Last Admin: 03/26/21 14:33 Dose: 25 mg Documented by: Ibuprofen (Ibuprofen 400 Mg Tablet) 400 mg PO Q8H PRN PRN Reason: Pain (Scale Score 4-6) Levothyroxine Sodium (Levothyroxine Sodium 75 Mcg Tablet) 75 mcg PO DAILY@0630 [facility] Last Admin: 03/28/21 09:39 Dose: 75 mcg Documented by: Loratadine (Loratadine 10 Mg Tablet) 10 mg PO DAILY [facility] Last Admin: 03/28/21 09:39 Dose: 10 mg Documented by: Magnesium Hydroxide (Milk Of Magnesia 30 Ml Oral.Susp) 30 ml PO DAILY PRN PRN Reason: Constipation Melatonin (Melatonin 3 Mg Tablet) 6 mg PO BEDTIME [facility] Last Admin: 03/27/21 21:58 Dose: 6 mg Documented by: Patient Own (Citalopram 40 Mg) 1 each PO DAILY [facility] Last Admin: 03/28/21 10:22 Dose: 1 each Documented by: Omeprazole (Omeprazole 20 Mg Capsule.Dr) 20 mg PO DAILY@0630 [facility] Last Admin: 03/28/21 09:39 Dose: 20 mg Documented by: Prazosin HCl (Prazosin Hcl 5 Mg Capsule) 5 mg PO BEDTIME [facility] Last Admin: 03/27/21 22:00 Dose: 5 mg Documented by: Prazosin HCl (Prazosin Hcl 1 Mg Capsule) 3 mg PO BEDTIME [facility] Last Admin: 03/27/21 22:00 Dose: 3 mg Documented by: Quetiapine Fumarate (Quetiapine Fumarate 50 Mg Tablet) 50 mg PO DAILY PRN PRN Reason: Anxiety Last Admin: 03/26/21 16:15 Dose: 50 mg Documented by: Quetiapine Fumarate (Quetiapine Fumarate 100 Mg Tablet) 100 mg PO BID@0800,1600 [facility] Last Admin: 03/28/21 09:39 Dose: 100 mg Documented by: Quetiapine Fumarate (Quetiapine Fumarate 200 Mg Tablet) 200 mg PO BEDTIME [facility] Last Admin: 03/27/21 21:59 Dose: 200 mg Documented by: Trazodone HCl (Trazodone Hcl 50 Mg Tablet) 50 mg PO BEDTIME PRN PRN Reason: Insomnia Last Admin: 03/26/21 20:37 Dose: 50 mg Documented by: Vitamin D (Cholecalciferol (Vitamin D3) 25 Mcg Tablet) 50 mcg PO DAILY [facility] Last Admin: 03/28/21 09:39 Dose: 50 mcg Documented by: Allergies Allergies Allergy/AdvReac Type Severity Reaction Status Date / Time clindamycin [CLINDAMYCIN] Allergy Unknown UNKNOWN Unverified 11/15/19 17:13 codeine [CODEINE] Allergy Unknown UNKNOWN Unverified 11/15/19 17:13 erythromycin base Allergy Unknown UNKNOWN Unverified 11/15/19 17:13 [ERYTHROMYCIN BASE] Macrolide Antibiotics Allergy Unknown UNKNOWN Unverified 11/15/19 17:13 [MACROLIDE ANTIBIOTICS] meperidine [From DEMEROL] Allergy Unknown UNKNOWN Unverified 11/15/19 17:13 Penicillins [PENICILLINS] Allergy Unknown UNKNOWN Unverified 11/15/19 17:13 Sulfa (Sulfonamide Allergy Unknown UNKNOWN Unverified 11/15/19 17:13 Antibiotics) [SULFA (SULFONAMIDE ANTIBIOTICS)] Assessment & Plan Assessment & Plan (1) Depression: Qualifiers: Active/Remission status: currently active Depression Type: major depressive disorder Major depression episode severity: severe Major depression recurrence: recurrent Psychotic features: without psychotic features Qualified Code(s): F33.2 - Major depressive disorder, recurrent severe without psychotic features Status: Acute Code(s): F32.A - Depression, unspecified Assessment and Plan: increased klonopin by 0.5 mg at 1600 per pt request. otherwise continued outpt regimen. contacted [facility] for guidance on Tx of depression and panic. loy suggested DC lexapro replace with celexa. 03/26 prazosin increased from 6 mg QHS to 8 mg QHS. 03/27 celexa 40 mg to be started once delivered by [facility]. 03/28 no new changes (2) Nonsuicidal self-injury: Status: Acute Code(s): R45.88 - Nonsuicidal self-harm Assessment and Plan: safe environment Q15 min checks Plan as above I spent minutes with the patient and/or on the patient floor today, greater than?50% of which was spent counseling/coordinating care. Reason for contiued inpatient stay Substantial Risk for: inability to function, rapid decompensation and med/psych decompensation
[2021-03-28] MEDS: clonazePAM 0.5 MG TABLET PO (16:00)
[2021-03-28] MEDS: Prazosin HCL 1 MG CAPSULE 3 MG PO (20:25)
[2021-03-28] MEDS: Cyproheptadine HCl 4 MG TABLET 8 MG PO (20:25)
[2021-03-28] MEDS: Melatonin 3 MG TABLET 6 MG PO (20:26)
[2021-03-28] MEDS: cloZAPine 100 MG TABLET 350 MG PO (20:26)
[2021-03-28] MEDS: Prazosin HCL 5 MG CAPSULE PO (20:27)
[2021-03-28] MEDS: Atorvastatin Calcium 10 MG TABLET PO (20:27)
[2021-03-28] MEDS: traZODone HCL 50 MG TABLET PO (20:27)
[2021-03-28] MEDS: QUEtiapine Fumarate 200 MG TABLET PO (20:27)
[2021-03-28 20:32] VITALS: BP 120/79; PULSE 99; TEMP 36.7; O2SAT 93
[2021-03-29] MEDS: cloZAPine 25 MG TABLET 50 MG PO (09:42)
[2021-03-29] MEDS: Cholecalciferol (Vitamin D3) 25 MCG TABLET 50 MCG PO (09:42)
[2021-03-29] MEDS: Docusate Sodium 100 MG CAPSULE PO ×2 (09:42→21:30)
[2021-03-29] MEDS: Loratadine 10 MG TABLET PO (09:43)
[2021-03-29] MEDS: clonazePAM 1 MG TABLET PO ×2 (09:43→21:31)
[2021-03-29] MEDS: QUEtiapine Fumarate 100 MG TABLET PO ×2 (09:43→16:15)
[2021-03-29] MEDS: Levothyroxine Sodium 75 MCG TABLET PO (09:43)
[2021-03-29] MEDS: Omeprazole 20 MG CAPSULE.DR PO (09:43)
[2021-03-29 10:00] VITALS: BP 131/77; PULSE 104; RESP 18; TEMP 36.3; O2SAT 94
--- NOTE | 2021-03-29 13:39 | P.PNPSI_ITS ---
Subjective Subjective Date of Service: 03/29/21 Reason For Visit: crisis Interim History: The nursing staff reported that she remains most of hte time in her bed, no suicidal thoughts and she asked to go back to her home. On interview, she denied new symtpoms, her only complaint was poor sleep and asked for standing Trazodone at hs. Mental Status Exam Mental Status Exam Patient Appearance: Appropriate Patient Orientation: Person and Situation Level of Consciousness: Awake Patient Behavior: Guarded and Cooperative Mood Description: Calm Affect Description: Constricted Ability to Follow Directions: Good Speech Pattern: Clear Hallucinations: None Delusions: Not Present Thought Process: Linear Judgement: Fair Diagnostics Vital Signs (24Hr): Vital Signs - 24 hr 03/28/21 20:32 03/29/21 10:00 Temperature 98.0 F 97.3 F Pulse Rate 99 104 H Respiratory Rate 18 Blood Pressure 120/79 131/77 Pulse Oximetry 93 94 BMI result [place] 4 Body Mass Index [place] 4 47.5 [place] 4 [place] 4 Labs Results: 03/27/21 07:12 03/20/21 14:43 Medications Medications Current Medications Acetaminophen (Acetaminophen 325 Mg Tablet) 650 mg PO Q6H PRN PRN Reason: Headache/Pain Mild Scale (1-3) Al Hydroxide/Mg Hydroxide (Magnesium Hydrox/Alum Hydrox 30 Ml Oral.Susp) 30 ml PO Q6H PRN PRN Reason: Heartburn/Nausea Albuterol Sulfate (Albuterol Sulfate 90 Mcg 8 Gm Inhaler) 2 puff INHALE QID PRN PRN Reason: Shortness Of Breath Last Admin: 03/28/21 10:56 Dose: 2 puff Documented by: Atorvastatin Calcium (Atorvastatin Calcium 10 Mg Tablet) 10 mg PO BEDTIME [facility] Last Admin: 03/28/21 20:27 Dose: 10 mg Documented by: Clonazepam (Clonazepam 0.5 Mg Tablet) 0.5 mg PO DAILY@1600 [facility] Last Admin: 03/28/21 16:00 Dose: 0.5 mg Documented by: Clonazepam (Clonazepam 1 Mg Tablet) 1 mg PO BID [facility] Last Admin: 03/29/21 09:43 Dose: 1 mg Documented by: Clozapine (Clozapine 25 Mg Tablet) 50 mg PO DAILY [facility] Last Admin: 03/29/21 09:42 Dose: 50 mg Documented by: Clozapine (Clozapine 100 Mg Tablet) 350 mg PO BEDTIME [facility] Last Admin: 03/28/21 20:26 Dose: 350 mg Documented by: Cyproheptadine HCl (Cyproheptadine Hcl 4 Mg Tablet) 8 mg PO BEDTIME [facility] Last Admin: 03/28/21 20:25 Dose: 8 mg Documented by: Docusate Sodium (Docusate Sodium 100 Mg Capsule) 100 mg PO BID [facility] Last Admin: 03/29/21 09:42 Dose: 100 mg Documented by: Hydroxyzine HCl (Hydroxyzine Hcl 25 Mg Tablet) 25 mg PO Q6H PRN PRN Reason: Anxiety Last Admin: 03/26/21 14:33 Dose: 25 mg Documented by: Ibuprofen (Ibuprofen 400 Mg Tablet) 400 mg PO Q8H PRN PRN Reason: Pain (Scale Score 4-6) Levothyroxine Sodium (Levothyroxine Sodium 75 Mcg Tablet) 75 mcg PO DAILY@0630 [facility] Last Admin: 03/29/21 09:43 Dose: 75 mcg Documented by: Loratadine (Loratadine 10 Mg Tablet) 10 mg PO DAILY [facility] Last Admin: 03/29/21 09:43 Dose: 10 mg Documented by: Magnesium Hydroxide (Milk Of Magnesia 30 Ml Oral.Susp) 30 ml PO DAILY PRN PRN Reason: Constipation Melatonin (Melatonin 3 Mg Tablet) 6 mg PO BEDTIME [facility] Last Admin: 03/28/21 20:26 Dose: 6 mg Documented by: Patient Own (Citalopram 40 Mg) 1 each PO DAILY [facility] Last Admin: 03/29/21 09:54 Dose: 1 each Documented by: Omeprazole (Omeprazole 20 Mg Capsule.) 20 mg PO DAILY@0630 [facility] Last Admin: 03/29/21 09:43 Dose: 20 mg Documented by: Prazosin HCl (Prazosin Hcl 5 Mg Capsule) 5 mg PO BEDTIME [facility] Last Admin: 03/28/21 20:27 Dose: 5 mg Documented by: Prazosin HCl (Prazosin Hcl 1 Mg Capsule) 3 mg PO BEDTIME [facility] Last Admin: 03/28/21 20:25 Dose: 3 mg Documented by: Quetiapine Fumarate (Quetiapine Fumarate 50 Mg Tablet) 50 mg PO DAILY PRN PRN Reason: Anxiety Last Admin: 03/26/21 16:15 Dose: 50 mg Documented by: Quetiapine Fumarate (Quetiapine Fumarate 100 Mg Tablet) 100 mg PO BID@0800,1600 [facility] Last Admin: 03/29/21 09:43 Dose: 100 mg Documented by: Quetiapine Fumarate (Quetiapine Fumarate 200 Mg Tablet) 200 mg PO BEDTIME [facility] Last Admin: 03/28/21 20:27 Dose: 200 mg Documented by: Trazodone HCl (Trazodone Hcl 50 Mg Tablet) 50 mg PO BEDTIME PRN PRN Reason: Insomnia Last Admin: 03/28/21 20:27 Dose: 50 mg Documented by: Trazodone HCl (Trazodone Hcl 50 Mg Tablet) 50 mg PO BEDTIME [facility] Vitamin D (Cholecalciferol (Vitamin D3) 25 Mcg Tablet) 50 mcg PO DAILY [facility] Last Admin: 03/29/21 09:42 Dose: 50 mcg Documented by: Allergies Allergies Allergy/AdvReac Type Severity Reaction Status Date / Time clindamycin Allergy Unknown UNKNOWN Unverified 11/15/19 17:13 [CLINDAMYCIN] codeine [CODEINE] Allergy Unknown UNKNOWN Unverified 11/15/19 17:13 erythromycin base Allergy Unknown UNKNOWN Unverified 11/15/19 17:13 [ERYTHROMYCIN BASE] Macrolide Antibiotics Allergy Unknown UNKNOWN Unverified 11/15/19 17:13 [MACROLIDE ANTIBIOTICS] meperidine [From Allergy Unknown UNKNOWN Unverified 11/15/19 17:13 DEMEROL] Penicillins Allergy Unknown UNKNOWN Unverified 11/15/19 17:13 [PENICILLINS] Sulfa (Sulfonamide Allergy Unknown UNKNOWN Unverified 11/15/19 17:13 Antibiotics) [SULFA (SULFONAMIDE ANTIBIOTICS)] Assessment & Plan Assessment & Plan (1) Depression: Qualifiers: Active/Remission status: currently active Depression Type: major depressive disorder Major depression episode severity: severe Major depression recurrence: recurrent Psychotic features: without psychotic features Qualified Code(s): F33.2 - Major depressive disorder, recurrent severe without psychotic features Status: Acute Code(s): F32.A - Depression, unspecified Assessment and Plan: increased klonopin by 0.5 mg at 1600 per pt request. otherwise continued outpt regimen. contacted [facility]oy for guidance on Tx of depression and panic. loy suggested DC lexapro replace with celexa. 03/26 prazosin increased from 6 mg QHS to 8 mg QHS. 03/27 celexa 40 mg to be started once delivered by [facility]. 03/28 no new changes 03/29 add Trazodone 50 mg po qhs standing dominik PRN (2) Nonsuicidal self-injury: Status: Acute Code(s): R45.88 - Nonsuicidal self-harm Assessment and Plan: safe environment Q15 min checks Plan as above I spent minutes with the patient and/or on the patient floor today, greater than?50% of which was spent counseling/coordinating care. Reason for contiued inpatient stay Substantial Risk for: inability to function, rapid decompensation and med/psych decompensation
[2021-03-29 18:00] VITALS: BP 119/86; PULSE 95; RESP 18; TEMP 36.7; O2SAT 95
[2021-03-29] MEDS: Prazosin HCL 1 MG CAPSULE 3 MG PO (21:30)
[2021-03-29] MEDS: traZODone HCL 50 MG TABLET PO (21:31)
[2021-03-29] MEDS: cloZAPine 100 MG TABLET 350 MG PO (21:31)
[2021-03-29] MEDS: Atorvastatin Calcium 10 MG TABLET PO (21:31)
[2021-03-29] MEDS: QUEtiapine Fumarate 200 MG TABLET PO (21:31)
[2021-03-29] MEDS: Cyproheptadine HCl 4 MG TABLET 8 MG PO (21:32)
[2021-03-29] MEDS: Melatonin 3 MG TABLET 6 MG PO (21:32)
[2021-03-30 10:00] VITALS: BP 133/83; PULSE 102; RESP 18; TEMP 36.6; O2SAT 98
[2021-03-30] MEDS: Levothyroxine Sodium 75 MCG TABLET PO (10:10)
[2021-03-30] MEDS: Loratadine 10 MG TABLET PO (10:10)
[2021-03-30] MEDS: clonazePAM 1 MG TABLET PO ×2 (10:10→20:25)
[2021-03-30] MEDS: Cholecalciferol (Vitamin D3) 25 MCG TABLET 50 MCG PO (10:10)
[2021-03-30] MEDS: Omeprazole 20 MG CAPSULE.DR PO (10:11)
[2021-03-30] MEDS: cloZAPine 25 MG TABLET 50 MG PO (10:11)
[2021-03-30] MEDS: Docusate Sodium 100 MG CAPSULE PO ×2 (10:11→20:24)
[2021-03-30] MEDS: QUEtiapine Fumarate 100 MG TABLET PO ×2 (10:11→16:37)
--- NOTE | 2021-03-30 14:20 | HO.PSYCHPN ---
Subjective Subjective Date of Service: 03/30/21 Reason For Visit: crisis Interim History: pt reports she is feeling well, plans to discharge tomorrow. reports her mood is improved the past couple of days, which coincides with the number of days she has been on citalopram (switched from lexapro). no other complaints or requests. per staff, planning for DC tomorrow. no SI/HI/AVH. pleasant, talkative. attending groups. playing emmy with staff and peers. med-compliant. Mental Status Exam Mental Status Exam Narrative: gaze palsy, wearing a dress, lac scars on both forearms with healing wound on left forearm from recent laceration. cooperative with interview. no PMA/PMR. speech incr in rate, nml amount. decr latency. nml tone. thoughts linear and logical. affect flexible, consistent with context, normo-intense, non-labile. no SI/SIBI/HI/AVH expressed. Diagnostics Vital Signs (24Hr): Vital Signs - 24 hr 03/29/21 18:00 Temperature 98.0 F Pulse Rate 95 Respiratory Rate 18 Blood Pressure 119/86 Pulse Oximetry 95 BMI result Body Mass Index 47.5 Labs Results: 03/27/21 07:12 03/20/21 14:43 Medications Medications Current Medications Acetaminophen (Acetaminophen 325 Mg Tablet) 650 mg PO Q6H PRN PRN Reason: Headache/Pain Mild Scale (1-3) Al Hydroxide/Mg Hydroxide (Magnesium Hydrox/Alum Hydrox 30 Ml Oral.Susp) 30 ml PO Q6H PRN PRN Reason: Heartburn/Nausea Albuterol Sulfate (Albuterol Sulfate 90 Mcg 8 Gm Inhaler) 2 puff INHALE QID PRN PRN Reason: Shortness Of Breath Last Admin: 03/28/21 10:56 Dose: 2 puff Documented by: Atorvastatin Calcium (Atorvastatin Calcium 10 Mg Tablet) 10 mg PO BEDTIME [facility] Last Admin: 03/29/21 21:31 Dose: 10 mg Documented by: Clonazepam (Clonazepam 1 Mg Tablet) 1 mg PO BID JOE Last Admin: 03/30/21 10:10 Dose: 1 mg Documented by: Clozapine (Clozapine 25 Mg Tablet) 50 mg PO DAILY [facility] Last Admin: 03/30/21 10:11 Dose: 50 mg Documented by: Clozapine (Clozapine 100 Mg Tablet) 350 mg PO BEDTIME JOE Last Admin: 03/29/21 21:31 Dose: 350 mg Documented by: Cyproheptadine HCl (Cyproheptadine Hcl 4 Mg Tablet) 8 mg PO BEDTIME [facility] Last Admin: 03/29/21 21:32 Dose: 8 mg Documented by: Docusate Sodium (Docusate Sodium 100 Mg Capsule) 100 mg PO BID [facility] Last Admin: 03/30/21 10:11 Dose: 100 mg Documented by: Hydroxyzine HCl (Hydroxyzine Hcl 25 Mg Tablet) 25 mg PO Q6H PRN PRN Reason: Anxiety Last Admin: 03/26/21 14:33 Dose: 25 mg Documented by: Ibuprofen (Ibuprofen 400 Mg Tablet) 400 mg PO Q8H PRN PRN Reason: Pain (Scale Score 4-6) Levothyroxine Sodium (Levothyroxine Sodium 75 Mcg Tablet) 75 mcg PO DAILY@0630 [facility] Last Admin: 03/30/21 10:10 Dose: 75 mcg Documented by: Loratadine (Loratadine 10 Mg Tablet) 10 mg PO DAILY [facility] Last Admin: 03/30/21 10:10 Dose: 10 mg Documented by: Magnesium Hydroxide (Milk Of Magnesia 30 Ml Oral.Susp) 30 ml PO DAILY PRN PRN Reason: Constipation Melatonin (Melatonin 3 Mg Tablet) 6 mg PO BEDTIME [facility] Last Admin: 03/29/21 21:32 Dose: 6 mg Documented by: Patient Own (Citalopram 40 Mg) 1 each PO DAILY [facility] Last Admin: 03/30/21 10:20 Dose: 1 each Documented by: Omeprazole (Omeprazole 20 Mg Capsule.Dr) 20 mg PO DAILY@0630 [facility] Last Admin: 03/30/21 10:11 Dose: 20 mg Documented by: Prazosin HCl (Prazosin Hcl 5 Mg Capsule) 5 mg PO BEDTIME [facility] Last Admin: 03/28/21 20:27 Dose: 5 mg Documented by: Prazosin HCl (Prazosin Hcl 1 Mg Capsule) 3 mg PO BEDTIME [facility] Last Admin: 03/29/21 21:30 Dose: 3 mg Documented by: Quetiapine Fumarate (Quetiapine Fumarate 50 Mg Tablet) 50 mg PO DAILY PRN PRN Reason: Anxiety Last Admin: 03/26/21 16:15 Dose: 50 mg Documented by: Quetiapine Fumarate (Quetiapine Fumarate 100 Mg Tablet) 100 mg PO BID@0800,1600 [facility] Last Admin: 03/30/21 10:11 Dose: 100 mg Documented by: Quetiapine Fumarate (Quetiapine Fumarate 200 Mg Tablet) 200 mg PO BEDTIME [facility] Last Admin: 03/29/21 21:31 Dose: 200 mg Documented by: Trazodone HCl (Trazodone Hcl 50 Mg Tablet) 50 mg PO BEDTIME PRN PRN Reason: Insomnia Last Admin: 03/28/21 20:27 Dose: 50 mg Documented by: Trazodone HCl (Trazodone Hcl 50 Mg Tablet) 50 mg PO BEDTIME JOE Last Admin: 03/29/21 21:31 Dose: 50 mg Documented by: Vitamin D (Cholecalciferol (Vitamin D3) 25 Mcg Tablet) 50 mcg PO DAILY [facility] Last Admin: 03/30/21 10:10 Dose: 50 mcg Documented by: Allergies Allergies Allergy/AdvReac Type Severity Reaction Status Date / Time clindamycin [CLINDAMYCIN] Allergy Unknown UNKNOWN Unverified 11/15/19 17:13 codeine [CODEINE] Allergy Unknown UNKNOWN Unverified 11/15/19 17:13 erythromycin base Allergy Unknown UNKNOWN Unverified 11/15/19 17:13 [ERYTHROMYCIN BASE] Macrolide Antibiotics Allergy Unknown UNKNOWN Unverified 11/15/19 17:13 [MACROLIDE ANTIBIOTICS] meperidine [From DEMEROL] Allergy Unknown UNKNOWN Unverified 11/15/19 17:13 Penicillins [PENICILLINS] Allergy Unknown UNKNOWN Unverified 11/15/19 17:13 Sulfa (Sulfonamide Allergy Unknown UNKNOWN Unverified 11/15/19 17:13 Antibiotics) [SULFA (SULFONAMIDE ANTIBIOTICS)] Assessment & Plan Assessment & Plan (1) Depression: Qualifiers: Active/Remission status: currently active Depression Type: major depressive disorder Major depression episode severity: severe Major depression recurrence: recurrent Psychotic features: without psychotic features Qualified Code(s): F33.2 - Major depressive disorder, recurrent severe without psychotic features Status: Acute Code(s): F32.A - Depression, unspecified Assessment and Plan: increased klonopin by 0.5 mg at 1600 per pt request. otherwise continued outpt regimen. contacted loy for guidance on Tx of depression and panic. loy suggested DC lexapro replace with celexa. 03/26 prazosin increased from 6 mg QHS to 8 mg QHS. 03/27 celexa 40 mg to be started once delivered by [facility]. 03/28 no new changes 03/29 add Trazodone 50 mg po qhs standing plus PRN planning for 03/31 DC. (2) Nonsuicidal self-injury: Status: Acute Code(s): R45.88 - Nonsuicidal self-harm Assessment and Plan: safe environment Q15 min checks Plan as above I spent minutes with the patient and/or on the patient floor today, greater than?50% of which was spent counseling/coordinating care. Reason for contiued inpatient stay Substantial Risk for: inability to function and rapid decompensation
[2021-03-30 18:00] VITALS: BP 123/66; PULSE 92; RESP 18; TEMP 36.7; O2SAT 96
[2021-03-30] MEDS: cloZAPine 100 MG TABLET 350 MG PO (20:24)
[2021-03-30] MEDS: traZODone HCL 50 MG TABLET PO (20:24)
[2021-03-30] MEDS: QUEtiapine Fumarate 200 MG TABLET PO (20:25)
[2021-03-30] MEDS: Prazosin HCL 5 MG CAPSULE PO (20:25)
[2021-03-30] MEDS: Atorvastatin Calcium 10 MG TABLET PO (20:25)
[2021-03-30] MEDS: Cyproheptadine HCl 4 MG TABLET 8 MG PO (20:25)
[2021-03-30] MEDS: Melatonin 3 MG TABLET 6 MG PO (20:25)
[2021-03-31] MEDS: Omeprazole 20 MG CAPSULE.DR PO (09:50)
[2021-03-31] MEDS: Levothyroxine Sodium 75 MCG TABLET PO (09:50)
[2021-03-31] MEDS: Docusate Sodium 100 MG CAPSULE PO (09:50)
[2021-03-31] MEDS: QUEtiapine Fumarate 100 MG TABLET PO (09:50)
[2021-03-31] MEDS: cloZAPine 25 MG TABLET 50 MG PO (09:50)
[2021-03-31] MEDS: Cholecalciferol (Vitamin D3) 25 MCG TABLET 50 MCG PO (09:50)
[2021-03-31] MEDS: Loratadine 10 MG TABLET PO (09:51)
[2021-03-31] MEDS: clonazePAM 1 MG TABLET PO (09:51)
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
--- NOTE | 2021-03-31 10:35 | PC.NURSE ---
Josselyn is alert, fully oriented, pleasant and cooperative with the discharge process. She verbalizes awareness of her prescribed medications and discharge plan including upcoming appointments. She denies ideation, plan or intent to harm herself or others. She denies current physical complaint.
== END 2021-03-31 10:58 | disposition home or self-care (01) | DRG 751 ==
LOC: HO.ED 15:37 → HO.PADLT16 03-23 18:36
PROVIDERS: Physician Assistant; Registered Nurse; Admitting Provider Psychiatry & Neurology Psychiatry; Emergency Provider Emergency Medicine Emergency Medical Services; PCP Nurse Practitioner Family; Visit Provider Psychiatry & Neurology Psychiatry
DX: F33.2 Major depressive disorder, recurrent severe without psychotic features (principal); R45.851 Suicidal ideations; Z20.822 Contact with and (suspected) exposure to COVID-19; Z91.52 Personal history of nonsuicidal self-harm; Z91.51 Personal history of suicidal behavior; Z88.0 Allergy status to penicillin; Z88.2 Allergy status to sulfonamides; Z88.5 Allergy status to narcotic agent; Z79.1 Long term (current) use of non-steroidal anti-inflammatories (NSAID); Z79.890 Hormone replacement therapy; Z79.899 Other long term (current) drug therapy
CPT/HCPCS: 36415; 80053; 80061; 80307; 81003; 81025; 82607; 82746; 83036; 83735; 84439; 84443; 85025; 85048; 87635; 93005; 99285

== ENCOUNTER 2021-06-27 19:08 | Emergency (ER) | payer MEDICAID, SELFPAY ==
[2021-06-27 19:24] VITALS: BP 117/79; PULSE 127; RESP 24; TEMP 36.9; O2SAT 95; BMI 47.7
[2021-06-27 19:27] LABS: MANUAL DIFF FLAG NO
[2021-06-27 19:29] LABS: Basophils Percent Auto 0.3 % (0-2); Hematocrit 37.9 % (37.0-47.0); Hemoglobin 12.8 g/dl (12.0-16.0); Imm Gran Abs Auto 0.06 X10*3/uL (0.00-0.03); Imm Gran Pct Auto 0.5 % (0.0-0.4); Lymphocytes Absolute Auto 3.3 X10*3/uL (1.2-4.9); Lymphocytes Percent Auto 29.5 % (20-40); Mean Corpuscular HGB Conc 33.8 g/dl (31.0-35.0); Mean Corpuscular Hemoglobin 28.6 pg (27.0-33.0); Mean Corpuscular Volume 84.6 fL (80.0-98.0); Mean Platelet Volume 10.5 fL (9.4-12.3); Monocytes Absolute Auto 0.8 X10*3/uL (0.1-1.2); Neutrophils Absolute Auto 7.1 x10*3/uL (2.0-8.3); Neutrophils Percent Auto 62.7 % (45-73); Platelet Count 199 X10*3/uL (160-400); Red Blood Count 4.48 X10*6/uL (4.20-5.50); Red Cell Distribution Width 13.2 % (11.0-16.0); White Blood Count 11.3 X10*3/uL (4.8-10.8)
--- NOTE | 2021-06-27 19:40 | ED_ITS ---
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 Patient cut her left forearm. Patient claims is a lot of stressor in her life. Previous history of cutting behavior. Last tetanus shot was 3 years ago patient from custodial. Denies taking overdose. No fever no chills no coughing congestion or respiratory symptoms no diaphoresis. Patient is sent in for further evaluation she said she used an open can to cut herself. Related Data Home Medications Medication Instructions Recorded Confirmed albuterol sulfate 90 mcg/actuation 2 puff INHALATION QID PRN 03/20/21 06/27/21 aerosol inhaler (ProAir HFA) atorvastatin 10 mg tablet 10 mg PO BEDTIME 03/20/21 06/27/21 cholecalciferol (vitamin D3) 50 50 mcg PO DAILY 03/20/21 06/27/21 mcg (2,000 unit) tablet (Vitamin D3) citalopram 40 mg tablet 1 tab PO DAILY 03/20/21 06/27/21 clonazepam 1 mg tablet 1 mg PO BID 03/20/21 06/27/21 clonazepam 1 mg tablet 2 mg PO BEDTIME PRN 03/20/21 06/27/21 clozapine 100 mg tablet 50 mg PO DAILY 03/20/21 06/27/21 clozapine 100 mg tablet 350 mg PO BEDTIME 03/20/21 06/27/21 cyproheptadine 4 mg tablet 8 mg PO BEDTIME 03/20/21 06/27/21 docusate sodium 100 mg capsule 100 mg PO BID 03/20/21 06/27/21 (Colace) ibuprofen 400 mg tablet 400 mg PO Q8H PRN 03/20/21 06/27/21 levothyroxine 75 mcg tablet 75 mcg PO DAILY 03/20/21 06/27/21 loratadine 10 mg tablet (Claritin) 10 mg PO DAILY 03/20/21 06/27/21 melatonin 3 mg tablet 6 mg PO BEDTIME 03/20/21 06/27/21 omeprazole 20 mg capsule,delayed 20 mg PO DAILY 03/20/21 06/27/21 release quetiapine 100 mg tablet (Seroquel) 100 mg PO BID@0800,1600 03/20/21 06/27/21 quetiapine 200 mg tablet (Seroquel) 200 mg PO BEDTIME 03/20/21 06/27/21 quetiapine 50 mg tablet (Seroquel) 50 mg PO DAILY PRN 03/20/21 06/27/21 hydroxyzine HCl 25 mg tablet 1 tab PO BEDTIME PRN 06/27/21 06/27/21 Previous Rx's Medication Instructions Recorded prazosin 2 mg capsule 8 mg PO BEDTIME 30 Days #120 cap 03/31/21 trazodone 50 mg tablet 50 mg PO BEDTIME 30 Days #30 tab 03/31/21 Allergies Allergy/AdvReac Type Severity Reaction Status Date / Time clindamycin [CLINDAMYCIN] Allergy Unknown UNKNOWN Unverified 11/15/19 17:13 codeine [CODEINE] Allergy Unknown UNKNOWN Unverified 11/15/19 17:13 erythromycin base Allergy Unknown UNKNOWN Unverified 11/15/19 17:13 [ERYTHROMYCIN BASE] Macrolide Antibiotics Allergy Unknown UNKNOWN Unverified 11/15/19 17:13 [MACROLIDE ANTIBIOTICS] meperidine [From DEMEROL] Allergy Unknown UNKNOWN Unverified 11/15/19 17:13 Penicillins [PENICILLINS] Allergy Unknown UNKNOWN Unverified 11/15/19 17:13 Sulfa (Sulfonamide Allergy Unknown UNKNOWN Unverified 11/15/19 17:13 Antibiotics) [SULFA (SULFONAMIDE ANTIBIOTICS)] Review of Systems Review of Systems: No fever no chills. No chest pain or shortness of breath. No diaphoresis. PMFSH Past Medical History Medical History Behavioral change Psychiatric complaint Self-injurious behavior Social History Social History Household Members: Other Household Members Other:: custodial Housing: House Housing Other:: custodial Do you presently have visiting nurse or other home services: Yes (staff to assist with medications) Patient Tobacco Use Status: Never used Tobacco e-Cigarette/Vaping Use: Never Used Second Hand Smoke Exposure: No Advance Directives: No service: No Sexual orientation: Don't Know Physical Exam Vital Signs: Vital Signs: Last Vital Signs Temp 98.9 F 06/27/21 21:45 Pulse 98 06/27/21 21:45 Resp 24 H 06/27/21 19:24 BP 113/74 06/27/21 21:45 Pulse Ox 95 06/27/21 21:45 BMI result Body Mass Index 47.7 Appearance: Alert. Oriented X3. No acute distress. Eyes: Pupils equal, round and reactive to light. ENT: Pharynx normal. Neck: Normal inspection. Neck supple. No lymph nodes noted. No crepitus CVS: Normal heart rate and rhythm. Pulses normal. Normal S1 and S2 Respiratory: No respiratory distress. Breath sounds normal. No Wheezing. No rales Abdomen: Soft and nontender. No rigidity. No distention. good BS x4 Skin: Multiple old scars from cutting in the left forearm. Multiple fresh scars noted. Mostly superficial. Distal sensation over the median radial and ulnar nerve intact, distal pulse intact Extremities: No lower extremity edema. Neurovascular intact to all extremities. No Lacerations. No Rash Neuro: Oriented X 3. No motor deficit. No sensory deficit. Moving all extermities. No slurred speech. Grossly cranial nerves intact MDM - Psych MDM Narrative Medical decision making narrative: Labs ordered. Will get crisis to evaluate patient. Wounds to be clean. Subsequently dressed. Lab Data Attestation: I reviewed the patient's lab results. Result diagrams: 06/27/21 19:23 06/27/21 19:23 Labs: Lab Results 06/27/21 06/27/21 06/27/21 Range/Units 19:23 19:23 19:23 WBC 11.3 H (4.8-10.8) X10*3/uL RBC 4.48 (4.20-5.50) X10*6/uL Hgb 12.8 (12.0-16.0) g/dl Hct 37.9 (37.0-47.0) % MCV 84.6 (80.0-98.0) fL MCH 28.6 (27.0-33.0) pg MCHC 33.8 (31.0-35.0) g/dl RDW 13.2 (11.0-16.0) % Plt Count 199 (160-400) X10*3/uL MPV 10.5 (9.4-12.3) fL Immature Gran % (Auto) 0.5 H (0.0-0.4) % Neut % (Auto) 62.7 (45-73) % Lymph % (Auto) 29.5 (20-40) % [place] % (Auto) 7.0 (2-11) % Eos % (Auto) 0.0 (0-4) % Baso % (Auto) 0.3 (0-2) % Lymph # (Auto) 3.3 (1.2-4.9) X10*3/uL [place] # (Auto) 0.8 (0.1-1.2) X10*3/uL Eos # (Auto) 0.0 (0.0-0.4) X10*3/uL Baso # (Auto) 0.0 (0.0-0.2) X10*3/uL Abs Immat Gran (auto) 0.06 H (0.00-0.03) X10*3/uL Absolute Neuts (auto) 7.1 (2.0-8.3) x10*3/uL Absolute Nucleated RBC 0.000 (0.0-0.012) X10*3/uL Nucleated RBC % (auto) 0.0 (0.0-0.2) /100WBC Sodium 140 (135-145) mmol/L Potassium 3.9 (3.3-5.1) mmol/L Chloride 108 (96-108) mmol/L Carbon Dioxide 20 L (22-29) mmol/L Anion Gap 16 (12-20) BUN 8 L (9-16) mg/dL Creatinine 1.00 (0.5-1.4) mg/dL Estim Creat Clear Calc 106.8 Estimated GFR > 60 Random Glucose 131 H (60-115) mg/dL Calcium 9.7 (8.4-10.2) mg/dL Total Bilirubin 0.3 (0.0-1.0) mg/dL AST 14 (5-31) U/L ALT 19 (0-31) U/L Alkaline Phosphatase 89 (39-117) U/L Total Protein 7.7 (6.5-8.0) g/dL Albumin 4.4 (3.5-5.0) g/dL Urine Color Urine Appearance Urine pH (5.0-8.0) Ur Specific [place] (1.005-1.025) Urine Protein (NEG-TRACE) MG/DL Urine Glucose (UA) (NEG) MG/DL Urine Ketones (NEG) MG/DL Urine Blood (NEG) Urine Nitrite (NEG) Ur Leukocyte Esterase (NEG) Urine Test (NEGATIVE) Salicylates < 5.0 L (15-30) mg/dL Urine Opiates Screen (Not Detect) Urine Fentanyl Screen (Not Detect) Acetaminophen < 1 (<30) mcg/mL Ur Barbiturates Screen (Not Detect) Ur Phencyclidine Scrn (Not Detect) Ur Amphetamines Screen (Not Detect) U Benzodiazepines Scrn (Not Detect) Urine Cocaine Screen (Not Detect) U Marijuana (THC) Screen (Not Detect) Ethyl Alcohol < 10 mg/dL COVID-19 ([facility]LICA) (Negative) COVID-19 Clin Com 06/27/21 06/27/21 06/27/21 Range/Units 19:57 20:17 20:17 WBC (4.8-10.8) X10*3/uL RBC (4.20-5.50) X10*6/uL Hgb (12.0-16.0) g/dl Hct (37.0-47.0) % MCV (80.0-98.0) fL MCH (27.0-33.0) pg MCHC (31.0-35.0) g/dl RDW (11.0-16.0) % Plt Count (160-400) X10*3/uL MPV (9.4-12.3) fL Immature Gran % (Auto) (0.0-0.4) % Neut % (Auto) (45-73) % Lymph % (Auto) (20-40) % [place] % (Auto) (2-11) % Eos % (Auto) (0-4) % Baso % (Auto) (0-2) % Lymph # (Auto) (1.2-4.9) X10*3/uL [place] # (Auto) (0.1-1.2) X10*3/uL Eos # (Auto) (0.0-0.4) X10*3/uL Baso # (Auto) (0.0-0.2) X10*3/uL Abs Immat Gran (auto) (0.00-0.03) X10*3/uL Absolute Neuts (auto) (2.0-8.3) x10*3/uL Absolute Nucleated RBC (0.0-0.012) X10*3/uL Nucleated RBC % (auto) (0.0-0.2) /100WBC Sodium (135-145) mmol/L Potassium (3.3-5.1) mmol/L Chloride (96-108) mmol/L Carbon Dioxide (22-29) mmol/L Anion Gap (12-20) BUN (9-16) mg/dL Creatinine (0.5-1.4) mg/dL Estim Creat Clear Calc Estimated GFR Random Glucose (60-115) mg/dL Calcium (8.4-10.2) mg/dL Total Bilirubin (0.0-1.0) mg/dL AST (5-31) U/L ALT (0-31) U/L Alkaline Phosphatase (39-117) U/L Total Protein (6.5-8.0) g/dL Albumin (3.5-5.0) g/dL Urine Color YELLOW Urine Appearance CLEAR Urine pH 6.0 (5.0-8.0) Ur Specific [place] 1.020 (1.005-1.025) Urine Protein NEG (NEG-TRACE) MG/DL Urine Glucose (UA) NEG (NEG) MG/DL Urine Ketones NEG (NEG) MG/DL Urine Blood NEG (NEG) Urine Nitrite NEG (NEG) Ur Leukocyte Esterase NEG (NEG) Urine Test NEGATIVE (NEGATIVE) Salicylates (15-30) mg/dL Urine Opiates Screen (Not Detect) Urine Fentanyl Screen (Not Detect) Acetaminophen (<30) mcg/mL Ur Barbiturates Screen (Not Detect) Ur Phencyclidine Scrn (Not Detect) Ur Amphetamines Screen (Not Detect) U Benzodiazepines Scrn (Not Detect) Urine Cocaine Screen (Not Detect) U Marijuana (THC) Screen (Not Detect) Ethyl Alcohol mg/dL COVID-19 ([facility]LICA) Negative (Negative) COVID-19 Clin Com See Note 06/27/21 Range/Units 20:17 WBC (4.8-10.8) X10*3/uL RBC (4.20-5.50) X10*6/uL Hgb (12.0-16.0) g/dl Hct (37.0-47.0) % MCV (80.0-98.0) fL MCH (27.0-33.0) pg MCHC (31.0-35.0) g/dl RDW (11.0-16.0) % Plt Count (160-400) X10*3/uL MPV (9.4-12.3) fL Immature Gran % (Auto) (0.0-0.4) % Neut % (Auto) (45-73) % Lymph % (Auto) (20-40) % [place] % (Auto) (2-11) % Eos % (Auto) (0-4) % Baso % (Auto) (0-2) % Lymph # (Auto) (1.2-4.9) X10*3/uL [place] # (Auto) (0.1-1.2) X10*3/uL Eos # (Auto) (0.0-0.4) X10*3/uL Baso # (Auto) (0.0-0.2) X10*3/uL Abs Immat Gran (auto) (0.00-0.03) X10*3/uL Absolute Neuts (auto) (2.0-8.3) x10*3/uL Absolute Nucleated RBC (0.0-0.012) X10*3/uL Nucleated RBC % (auto) (0.0-0.2) /100WBC Sodium (135-145) mmol/L Potassium (3.3-5.1) mmol/L Chloride (96-108) mmol/L Carbon Dioxide (22-29) mmol/L Anion Gap (12-20) BUN (9-16) mg/dL Creatinine (0.5-1.4) mg/dL Estim Creat Clear Calc Estimated GFR Random Glucose (60-115) mg/dL Calcium (8.4-10.2) mg/dL Total Bilirubin (0.0-1.0) mg/dL AST (5-31) U/L ALT (0-31) U/L Alkaline Phosphatase (39-117) U/L Total Protein (6.5-8.0) g/dL Albumin (3.5-5.0) g/dL Urine Color Urine Appearance Urine pH (5.0-8.0) Ur Specific [place] (1.005-1.025) Urine Protein (NEG-TRACE) MG/DL Urine Glucose (UA) (NEG) MG/DL Urine Ketones (NEG) MG/DL Urine Blood (NEG) Urine Nitrite (NEG) Ur Leukocyte Esterase (NEG) Urine Test (NEGATIVE) Salicylates (15-30) mg/dL Urine Opiates Screen Not Detected (Not Detect) Urine Fentanyl Screen Not Detected (Not Detect) Acetaminophen (<30) mcg/mL Ur Barbiturates Screen Not Detected (Not Detect) Ur Phencyclidine Scrn Not Detected (Not Detect) Ur Amphetamines Screen Not Detected (Not Detect) U Benzodiazepines Scrn Not Detected (Not Detect) Urine Cocaine Screen Not Detected (Not Detect) U Marijuana (THC) Screen Not Detected (Not Detect) Ethyl Alcohol mg/dL COVID-19 (ANG[facility]LICA) (Negative) COVID-19 Clin Com Discharge Plan Discharge Clinical Impression: Depression, Suicidal ideation Prescriptions: No Action citalopram 40 mg tablet 1 tab PO DAILY 0RF atorvastatin 10 mg Tablet 10 mg PO BEDTIME 0RF clozapine 100 mg tablet 350 mg PO BEDTIME 0RF Rx Instructions: takes with 200 mg at bedtime for total bedtime dose of 350 mg clozapine 100 mg tablet 50 mg PO DAILY 0RF quetiapine [Seroquel] 200 mg Tablet 200 mg PO BEDTIME 0RF clonazepam 1 mg Tablet 2 mg PO BEDTIME PRN (Reason: Anxiety) 0RF clonazepam 1 mg Tablet 1 mg PO BID 0RF melatonin 3 mg Tablet 6 mg PO BEDTIME 0RF quetiapine [Seroquel] 100 mg Tablet 100 mg PO BID@0800,1600 0RF levothyroxine 75 mcg Tablet 75 mcg PO DAILY 0RF cyproheptadine 4 mg Tablet 8 mg PO BEDTIME 0RF ibuprofen 400 mg Tablet 400 mg PO Q8H PRN (Reason: Pain (Scale Score 4-6)) 0RF docusate sodium [Colace] 100 mg Capsule 100 mg PO BID 0RF omeprazole 20 mg Capsule,Delayed Release(Dr/Ec) 20 mg PO DAILY 0RF albuterol sulfate [ProAir HFA] 90 mcg/actuation Hfa Aerosol Inhaler 2 puff INHALATION QID PRN (Reason: Shortness Of Breath) 0RF loratadine [Claritin] 10 mg Tablet 10 mg PO DAILY 0RF quetiapine [Seroquel] 50 mg Tablet 50 mg PO DAILY PRN (Reason: Anxiety) 0RF cholecalciferol (vitamin D3) [Vitamin D3] 50 mcg (2,000 unit) Tablet 50 mcg PO DAILY 0RF prazosin 2 mg capsule 8 mg PO BEDTIME 30 Days Qty: 120 0RF trazodone 50 mg Tablet 50 mg PO BEDTIME 30 Days Qty: 30 0RF hydroxyzine HCl 25 mg tablet 1 tab PO BEDTIME PRN (Reason: insomnia) 0RF
--- NOTE | 2021-06-27 19:43 | PC.NURSE ---
Pt is in the pivot 1 room for wound cleaning. pt is cooperative with care. then will be transfered to the pod when completed.
[2021-06-27 19:54] LABS: Alanine Aminotransferase 19 U/L (0-31); Albumin Level 4.4 g/dL (3.5-5.0); Alkaline Phosphatase 89 U/L (39-117); Anion Gap 16 (12-20); Aspartate Amino Transferase 14 U/L (5-31); Bilirubin Total 0.3 mg/dL (0.0-1.0); Blood Urea Nitrogen 8 mg/dL (9-16); Calcium 9.7 mg/dL (8.4-10.2); Carbon Dioxide 20 mmol/L (22-29); Chloride 108 mmol/L (96-108); Creatinine Clr Calc Pharmacy 106.8; Estimated Glomerular Filt Rate > 60; Glucose Random 131 mg/dL (60-115); Potassium 3.9 mmol/L (3.3-5.1); Sodium 140 mmol/L (135-145); Total Protein 7.7 g/dL (6.5-8.0)
[2021-06-27 19:59] LABS: Ethanol < 10 mg/dL
[2021-06-27 20:02] LABS: Acetaminophen LAB < 1 mcg/mL (<30); Salicylate < 5.0 mg/dL (15-30)
[2021-06-27 20:18] LABS: COVID-19 Test Negative (Negative); IDNOW Serial# 55D5AD1C
[2021-06-27 20:24] LABS: Appearance Urine CLEAR; Color Urine YELLOW; Glucose Urine UA NEG (NEG); Leukocyte Esterase Urine NEG (NEG); Nitrite Urine NEG (NEG); Urine Blood NEG (NEG); Urine Ketones NEG (NEG); Urine Protein NEG (NEG-TRACE)
--- NOTE | 2021-06-27 20:25 | PC.NURSE ---
This RN assisting in cleansing and closing of 5 open lacerations to left forearm. upper two lacerations have sub q tissue visible. wounds closed moderately well with steri strips and betadine. Pt believes her last tetnus was 2-3 years ago.
[2021-06-27 20:27] LABS: UPreg QC Valid YES; Urine Pregnancy NEGATIVE (NEGATIVE)
[2021-06-27 20:41] LABS: Amphetamine Screen Urine Not Detected (Not Detect); Barbiturates, Urine Not Detected (Not Detect); Benzodiazepines Screen Urine Not Detected (Not Detect); Cannabinoid Screen Urine Not Detected (Not Detect); Cocaine Screen Urine Not Detected (Not Detect); Fentanyl, urine Not Detected (Not Detect); Opiate Screen Urine Not Detected (Not Detect); Phencyclidine Screen Urine Not Detected (Not Detect)
--- NOTE | 2021-06-27 20:45 | PC.NURSE ---
Patient's med rec completed by calling intermediate at [phone] and talking to IRWIN Lamb. Per Snf director patient needs to be on 1:1 for high risk sucidiality and they want their staff be with patient until patient is admitted to the hospital. Matter discussed with charged Nurse and approved to have staff with patient if it is DDS protocol for the patient. [facility] referral completed/confirmed/pending ETA overnight, will continue to monitor.
--- NOTE | 2021-06-27 20:55 | PHA.MEDREC ---
Pharmacy Consult ? Medication Reconciliation Nursing has completed the medication reconciliation and Pharmacy has reviewed.
[2021-06-27] MEDS: QUEtiapine Fumarate 200 MG TABLET PO (21:35)
[2021-06-27] MEDS: clonazePAM 1 MG TABLET PO (21:35)
[2021-06-27] MEDS: Atorvastatin Calcium 10 MG TABLET PO (21:35)
[2021-06-27] MEDS: Melatonin 3 MG TABLET 6 MG PO (21:35)
[2021-06-27] MEDS: Docusate Sodium 100 MG CAPSULE PO (21:35)
[2021-06-27] MEDS: Prazosin HCL 1 MG CAPSULE 8 MG PO (21:36)
[2021-06-27] MEDS: Cyproheptadine HCl 4 MG TABLET 8 MG PO (21:41)
[2021-06-27] MEDS: cloZAPine 100 MG TABLET 350 MG PO (21:42)
[2021-06-27 21:45] VITALS: BP 113/74; PULSE 98; TEMP 37.2; O2SAT 95
[2021-06-27] MEDS: traZODone HCL 50 MG TABLET PO (21:50)
--- NOTE | 2021-06-28 05:44 | PC.NURSE ---
Patient slept though the night, no distress observed/reported, behavior non concerning at this time, disposition per [facility] is section 12 inpatient bed search, medication compliant, shelter staff with patient, patient left arm is covered with dressing, per report there multiple cuts secured with steri-strips, VSS, will continue to monitor.
[2021-06-28] MEDS: Omeprazole 20 MG CAPSULE.DR PO (06:05)
[2021-06-28] MEDS: Levothyroxine Sodium 75 MCG TABLET PO (06:05)
--- NOTE | 2021-06-28 08:41 | PC.NURSE ---
sleeping. custodial staff at bedside.
[2021-06-28 09:12] VITALS: BP 123/79; PULSE 87; RESP 16; TEMP 37; O2SAT 97
[2021-06-28] MEDS: Escitalopram Oxalate 20 MG TABLET PO (09:26)
[2021-06-28] MEDS: clonazePAM 1 MG TABLET PO ×2 (09:26→20:47)
[2021-06-28] MEDS: Cholecalciferol (Vitamin D3) 25 MCG TABLET 50 MCG PO (09:26)
[2021-06-28] MEDS: Loratadine 10 MG TABLET PO (09:26)
[2021-06-28] MEDS: QUEtiapine Fumarate 100 MG TABLET PO ×2 (09:27→16:49)
[2021-06-28] MEDS: Docusate Sodium 100 MG CAPSULE PO ×2 (09:27→20:47)
[2021-06-28] MEDS: cloZAPine 25 MG TABLET 50 MG PO (09:43)
--- NOTE | 2021-06-28 10:01 | PC.NURSE ---
Pt is awake, had very little breakfast, up in department to speak with staff. denies SI/HI and tendency for self harm at this time. wounds redressed left forearm.
[2021-06-28] MEDS: clonazePAM 1 MG TABLET 2 MG PO (14:17)
--- NOTE | 2021-06-28 14:20 | PC.NURSE ---
requested a prn. appears well. no behavoral outbursts.
[2021-06-28 16:30] VITALS: BP 134/96; PULSE 87; RESP 18; TEMP 36.5; O2SAT 99
--- NOTE | 2021-06-28 19:55 | PC.NURSE ---
[facility] staff just left, according the group homer director is aware, next staff will be here at 2300. Patient contracted for the safety
[2021-06-28 20:46] VITALS: BP 149/90; PULSE 91
[2021-06-28] MEDS: Atorvastatin Calcium 10 MG TABLET PO (20:47)
[2021-06-28] MEDS: QUEtiapine Fumarate 200 MG TABLET PO (20:47)
[2021-06-28] MEDS: Melatonin 3 MG TABLET 6 MG PO (20:47)
[2021-06-28] MEDS: Prazosin HCL 1 MG CAPSULE 8 MG PO (20:47)
[2021-06-28] MEDS: traZODone HCL 50 MG TABLET PO (20:51)
[2021-06-28] MEDS: Cyproheptadine HCl 4 MG TABLET 8 MG PO (21:18)
[2021-06-28] MEDS: cloZAPine 100 MG TABLET 350 MG PO (21:18)
[2021-06-29] MEDS: Levothyroxine Sodium 75 MCG TABLET PO (05:48)
[2021-06-29] MEDS: Omeprazole 20 MG CAPSULE.DR PO (05:48)
--- NOTE | 2021-06-29 06:09 | PC.NURSE ---
Patient slept though the night, no distress observed/reported, behavior non concerning at this time, disposition per [facility] is section 12 inpatient bed search, medication compliant, behavior pleasant, cooperative, and non concerning at this time, shelter staff with patient, VSS, will continue to monitor.
[2021-06-29 06:49] VITALS: BP 118/82; PULSE 76; RESP 20; TEMP 36.6; O2SAT 93
[2021-06-29] MEDS: QUEtiapine Fumarate 100 MG TABLET PO (09:20)
[2021-06-29] MEDS: Loratadine 10 MG TABLET PO (09:20)
[2021-06-29] MEDS: Escitalopram Oxalate 20 MG TABLET PO (09:20)
[2021-06-29] MEDS: clonazePAM 1 MG TABLET PO (09:21)
[2021-06-29] MEDS: Cholecalciferol (Vitamin D3) 25 MCG TABLET 50 MCG PO (09:21)
[2021-06-29] MEDS: Docusate Sodium 100 MG CAPSULE PO (09:21)
[2021-06-29] MEDS: cloZAPine 25 MG TABLET 50 MG PO (09:31)
--- NOTE | 2021-06-29 10:58 | MHC.CARE ---
CARE Team meets with pt at pt's request. Pt was initially seen by [facility] crisis on 06/27, however [facility] has not returned for mental status update. Pt is well known to this content writer. She was seen by [facility] crisis for the first time, however is very well known to [facility] and [facility]; though she has not been seen by them since April. Pt has a hx of developmental disability, self harm by way of cutting and suicidal ideation, and this is typical of her baseline. Pt struggles to identify precipitating factors and appears to be at her baseline functioning when interacting with TW. Affect full. Pt states that she can be safe at her jail and will reach out to [facility] crisis as needed. CARE Team made contact with [facility] crisis and they are aware of pt's presentation. CARE Team speaks with group insurance specialist, Dori, who agrees that pt can return and they do not have significant safety concerns. Case discussed with ED provider Diann Quinn NP.
--- NOTE | 2021-06-29 11:48 | PC.NURSE ---
pt seen by clinician and was cleared for discharge. pt alert, denied pain. pt discharged with staff member from her half-way. no complaints
== END 2021-06-29 11:42 | disposition home or self-care (01) ==
PROVIDERS: Emergency Provider Emergency Medicine Emergency Medical Services; PCP Nurse Practitioner Family
DX: F32.A Depression, unspecified (principal); R45.851 Suicidal ideations; Z91.52 Personal history of nonsuicidal self-harm; Z20.822 Contact with and (suspected) exposure to COVID-19
CPT/HCPCS: 36415; 80053; 80143; 80179; 80307; 81003; 81025; 82077; 85025; 87635; 99285

== ENCOUNTER 2021-07-14 19:43 | Emergency (ER) | payer MEDICAID, SELFPAY ==
--- NOTE | ~2021-07-14 | XR_ITS ---
EXAMINATION: XR CHEST CLINICAL INFORMATION: Leukocytosis. Rule out pneumonia. COMPARISON: None TECHNIQUE: Frontal view of the chest was obtained. FINDINGS: The lungs are well expanded. There is no focal consolidation, edema, or effusion. No pneumothorax. The cardiomediastinal silhouette is within normal limits. No acute osseous abnormality. XR/XR chest 1V IMPRESSION: Clear lungs.
[2021-07-14 19:50] VITALS: BP 133/87; PULSE 103; RESP 18; TEMP 36.6; O2SAT 96; BMI 46.0
--- NOTE | 2021-07-14 20:18 | ED_ITS ---
HPI - Psych General Chief Complaint: Psychiatric Symptoms Stated Complaint: SI w/ attempt? Lac on arm Time Seen by Provider: 07/14/21 20:05 Source: patient Mode of arrival: ambulatory Limitations: no limitations History of Present Illness HPI Narrative: This is a 35-year-old female presenting to the emergency department with complaints of suicidal ideation her chief complaint is I want to kill myself , patient tells me that she will do anything it takes to kill herself. She also presents with a large deep laceration to her left forearm due to self harm. Patient tells me she caught herself using a staple. She tells me her plan for suicide is to hang herself with a belt. Patient tells me she really needs help and does not feel safe to be discharged back home. She denies visual, auditory and tactile hallucinations. She denies drugs, alcohol and tobacco. She denies medical complaints at this time. She has been taking all medications as prescribed. MD complaint: suicidal ideation Onset (ago): day(s) (1) Duration: constant History of same: Yes Relieving factors: none Exacerbating factors: none Associated psychiatric symptoms: none Associated symptoms: denies other symptoms Treatments prior to arrival: none If self harm: admits thoughts of self harm and has plan (Hang herself with the belt) Related Data Home Medications Medication Instructions Recorded Confirmed albuterol sulfate 90 mcg/actuation 2 puff INHALATION QID PRN 03/20/21 07/14/21 aerosol inhaler (ProAir HFA) atorvastatin 10 mg tablet 10 mg PO BEDTIME 03/20/21 07/14/21 cholecalciferol (vitamin D3) 50 50 mcg PO DAILY 03/20/21 07/14/21 mcg (2,000 unit) tablet (Vitamin D3) citalopram 40 mg tablet 1 tab PO DAILY 03/20/21 07/14/21 clonazepam 1 mg tablet 1 mg PO BID 03/20/21 07/14/21 clonazepam 1 mg tablet 2 mg PO BEDTIME PRN 03/20/21 07/14/21 clozapine 100 mg tablet 50 mg PO DAILY 03/20/21 07/14/21 clozapine 100 mg tablet 350 mg PO BEDTIME 03/20/21 07/14/21 cyproheptadine 4 mg tablet 8 mg PO BEDTIME 03/20/21 07/14/21 docusate sodium 100 mg capsule 100 mg PO BID 03/20/21 07/14/21 (Colace) ibuprofen 400 mg tablet 400 mg PO Q6H PRN 03/20/21 07/14/21 levothyroxine 75 mcg tablet 75 mcg PO DAILY 03/20/21 07/14/21 loratadine 10 mg tablet (Claritin) 10 mg PO DAILY 03/20/21 07/14/21 melatonin 3 mg tablet 6 mg PO BEDTIME 03/20/21 07/14/21 omeprazole 20 mg capsule,delayed 20 mg PO DAILY 03/20/21 07/14/21 release quetiapine 100 mg tablet (Seroquel) 100 mg PO BID@0800,1600 03/20/21 07/14/21 quetiapine 200 mg tablet (Seroquel) 200 mg PO BEDTIME 03/20/21 07/14/21 quetiapine 50 mg tablet (Seroquel) 50 mg PO DAILY PRN 03/20/21 07/14/21 hydroxyzine HCl 25 mg tablet 1 tab PO BEDTIME PRN 06/27/21 07/14/21 Previous Rx's Medication Instructions Recorded prazosin 2 mg capsule 8 mg PO BEDTIME 30 Days #120 cap 03/31/21 trazodone 50 mg tablet 50 mg PO BEDTIME 30 Days #30 tab 03/31/21 Allergies Allergy/AdvReac Type Severity Reaction Status Date / Time clindamycin [CLINDAMYCIN] Allergy Unknown UNKNOWN Verified 06/28/21 05:57 codeine [CODEINE] Allergy Unknown UNKNOWN Verified 06/28/21 05:57 erythromycin base Allergy Unknown UNKNOWN Verified 06/28/21 05:57 [ERYTHROMYCIN BASE] Macrolide Antibiotics Allergy Unknown UNKNOWN Verified 06/28/21 05:57 [MACROLIDE ANTIBIOTICS] meperidine [From DEMEROL] Allergy Unknown UNKNOWN Verified 06/28/21 05:57 Penicillins [PENICILLINS] Allergy Unknown UNKNOWN Verified 06/28/21 05:57 Sulfa (Sulfonamide Allergy Unknown UNKNOWN Verified 06/28/21 05:57 Antibiotics) [SULFA (SULFONAMIDE ANTIBIOTICS)] Review of Systems Review of Systems: Constitutional : No Fever, No Chills ENT/Mouth : No Ear Pain, No Nasal Congestion, No sore throat Eyes: No Eye Pain, No Swelling, No Redness Cardiovascular : No Chest Pain, No SOB Respiratory : No Cough, No Sputum, No Dyspnea Gastrointestinal : No Nausea, No Vomiting, No Diarrhea, No Hematochezia, No Melena Genitourinary : No Dysuria, No Urinary Frequency, No Hematuria Musculoskeletal : No Myalgias Skin : No Skin Lesions, No rash, + laceration Neuro : No Weakness, No Numbness, No Paresthesias, No Dizziness, No Headache Psych : positive Anxiety, positive Depression, positive SI, no HI All other systems reviewed and are negative Yes all other systems are reviewed and are negative [facility] Past Medical History Attestation statement: The following information was validated with the patient. Source: old records reviewed and nursing notes reviewed Medical History Behavioral change Psychiatric complaint Self-injurious behavior Social History Social History Household Members: Other Household Members Other:: skilled nursing Housing: House Housing Other:: skilled nursing Do you presently have visiting nurse or other home services: Yes (staff to assist with medications) Alcohol intake: never Patient Tobacco Use Status: Never used Tobacco e-Cigarette/Vaping Use: Never Used Second Hand Smoke Exposure: No Advance Directives: No Advance Directives Information Provided: Yes service: No Sexual orientation: Don't Know Physical Exam Vital Signs: Vital Signs: Last Vital Signs Temp 97.9 F 07/14/21 19:50 Pulse 103 H 07/14/21 19:50 Resp 18 07/14/21 19:50 BP 133/87 07/14/21 19:50 Pulse Ox 96 07/14/21 19:50 BMI result Body Mass Index 46.0 Vital signs stable Appearance: Alert.? Oriented X3.? No acute distress.? Head: Normocephalic, atraumatic, no step-offs or deformities Eyes: Pupils equal, round and reactive to light.? ENT: Pharynx normal.? Neck: Normal inspection.? Neck supple.? CVS: Normal heart rate and rhythm.? Pulses normal.? Respiratory: No respiratory distress.? Breath sounds normal.? Abdomen: Soft and nontender.? Skin: Skin warm and dry.? Normal skin color.? Normal skin turgor.?+ large 4 cm thick laceration to the left forearm due to self-inflicted harm. Extremities: No lower extremity edema.? No calf ttp. 5/5 strength to bilateral upper and lower extremities Neuro: Oriented X 3.? No motor deficit.? No sensory deficit. CN 2-12 intact Course Reevaluation(s) Reevaluation #1: Left forearm wound is successfully sutured using 4-O sutures x3. Patient tolerated procedure well. A sterile dressing was applied afterwards. Patient is not a diabetic. She will not require antibiotics. Advised patient to get sutures removed in 7-10 days. Patient is up-to-date on a tetanus shot. Time: 20:40 Reevaluation #2: Patient's CBC appears to be around its baseline, her white blood cell count is 11 however it was 11.3 last time appears to be patient's baseline. No signs of anemia. No acute electrolyte abnormalities requiring intervention. UA negative. Urine toxicology positive for benzodiazepines. Patient is COVID negative. Chest x-ray with no acute findings. At this time patient will be placed in physician observation to allow more time to be evaluated by the behavioral health team. At time observation was started patient common cooperative no acute distress. Time: 00:14 MDM - Psych MDM Narrative Medical decision making narrative: 2015 35-year-old female presents with suicidal ideation with plan in the self- inflicted wound to the left forearm. Reports she is taking all her medications. Physical examination significant for a deep self-inflicted wound to left forearm. That will require repair with sutures. Regular rate and rhythm. Lungs clear. Abdomen soft nontender nondistended. Neuro exam nonfocal. Patient common cooperative. Plan at this time and medical clearance, behavioral health consult and suturing of the left forearm. Medical Records Attestation: I reviewed the patient's medical records. Lab Data Attestation: I reviewed the patient's lab results. Result diagrams: 07/14/21 20:50 07/14/21 20:50 Labs: Lab Results 07/14/21 07/14/21 07/14/21 Range/Units 20:12 20:50 20:50 WBC 11.0 H (4.8-10.8) X10*3/uL RBC 4.40 (4.20-5.50) X10*6/uL Hgb 12.5 (12.0-16.0) g/dl Hct 37.4 (37.0-47.0) % MCV 85.0 (80.0-98.0) fL MCH 28.4 (27.0-33.0) pg MCHC 33.4 (31.0-35.0) g/dl RDW 13.2 (11.0-16.0) % Plt Count 227 (160-400) X10*3/uL MPV 10.9 (9.4-12.3) fL Immature Gran % (Auto) 0.3 (0.0-0.4) % Neut % (Auto) 59.5 (45-73) % Lymph % (Auto) 33.6 (20-40) % Harding % (Auto) 6.3 (2-11) % Eos % (Auto) 0.0 (0-4) % Baso % (Auto) 0.3 (0-2) % Lymph # (Auto) 3.7 (1.2-4.9) X10*3/uL Harding # (Auto) 0.7 (0.1-1.2) X10*3/uL Eos # (Auto) 0.0 (0.0-0.4) X10*3/uL Baso # (Auto) 0.0 (0.0-0.2) X10*3/uL Abs Immat Gran (auto) 0.03 (0.00-0.03) X10*3/uL Absolute Neuts (auto) 6.5 (2.0-8.3) x10*3/uL Absolute Nucleated RBC 0.000 (0.0-0.012) X10*3/uL Nucleated RBC % (auto) 0.0 (0.0-0.2) /100WBC Sodium 140 (135-145) mmol/L Potassium 3.7 (3.3-5.1) mmol/L Chloride 107 (96-108) mmol/L Carbon Dioxide 24 (22-29) mmol/L Anion Gap 13 (12-20) BUN 10 (9-16) mg/dL Creatinine 0.88 (0.5-1.4) mg/dL Estim Creat Clear Calc 122.9 Estimated GFR > 60 Random Glucose 81 (60-115) mg/dL Calcium 9.9 (8.4-10.2) mg/dL Magnesium 2.2 (1.6-2.6) mg/dL Total Bilirubin 0.5 (0.0-1.0) mg/dL AST 20 D (5-31) U/L ALT 25 (0-31) U/L Alkaline Phosphatase 85 (39-117) U/L Total Protein 7.9 (6.5-8.0) g/dL Albumin 4.5 (3.5-5.0) g/dL Urine Color Urine Appearance Urine pH (5.0-8.0) Ur Specific Ewing (1.005-1.025) Urine Protein (NEG-TRACE) MG/DL Urine Glucose (UA) (NEG) MG/DL Urine Ketones (NEG) MG/DL Urine Blood (NEG) Urine Nitrite (NEG) Ur Leukocyte Esterase (NEG) Urine Opiates Screen (Not Detect) Urine Fentanyl Screen (Not Detect) Ur Barbiturates Screen (Not Detect) Ur Phencyclidine Scrn (Not Detect) Ur Amphetamines Screen (Not Detect) U Benzodiazepines Scrn (Not Detect) Urine Cocaine Screen (Not Detect) U Marijuana (THC) Screen (Not Detect) Ethyl Alcohol mg/dL COVID-19 (ANGÉLICA) Negative (Negative) COVID-19 Clin Com See Note 07/14/21 07/14/21 07/14/21 Range/Units 20:50 20:56 20:56 WBC (4.8-10.8) X10*3/uL RBC (4.20-5.50) X10*6/uL Hgb (12.0-16.0) g/dl Hct (37.0-47.0) % MCV (80.0-98.0) fL MCH (27.0-33.0) pg MCHC (31.0-35.0) g/dl RDW (11.0-16.0) % Plt Count (160-400) X10*3/uL MPV (9.4-12.3) fL Immature Gran % (Auto) (0.0-0.4) % Neut % (Auto) (45-73) % Lymph % (Auto) (20-40) % Harding % (Auto) (2-11) % Eos % (Auto) (0-4) % Baso % (Auto) (0-2) % Lymph # (Auto) (1.2-4.9) X10*3/uL Harding # (Auto) (0.1-1.2) X10*3/uL Eos # (Auto) (0.0-0.4) X10*3/uL Baso # (Auto) (0.0-0.2) X10*3/uL Abs Immat Gran (auto) (0.00-0.03) X10*3/uL Absolute Neuts (auto) (2.0-8.3) x10*3/uL Absolute Nucleated RBC (0.0-0.012) X10*3/uL Nucleated RBC % (auto) (0.0-0.2) /100WBC Sodium (135-145) mmol/L Potassium (3.3-5.1) mmol/L Chloride (96-108) mmol/L Carbon Dioxide (22-29) mmol/L Anion Gap (12-20) BUN (9-16) mg/dL Creatinine (0.5-1.4) mg/dL Estim Creat Clear Calc Estimated GFR Random Glucose (60-115) mg/dL Calcium (8.4-10.2) mg/dL Magnesium (1.6-2.6) mg/dL Total Bilirubin (0.0-1.0) mg/dL AST (5-31) U/L ALT (0-31) U/L Alkaline Phosphatase (39-117) U/L Total Protein (6.5-8.0) g/dL Albumin (3.5-5.0) g/dL Urine Color YELLOW Urine Appearance CLEAR Urine pH 6.0 (5.0-8.0) Ur Specific Ewing >= 1.030 H (1.005-1.025) Urine Protein NEG (NEG-TRACE) MG/DL Urine Glucose (UA) NEG (NEG) MG/DL Urine Ketones NEG (NEG) MG/DL Urine Blood NEG (NEG) Urine Nitrite NEG (NEG) Ur Leukocyte Esterase NEG (NEG) Urine Opiates Screen Not Detected (Not Detect) Urine Fentanyl Screen Not Detected (Not Detect) Ur Barbiturates Screen Not Detected (Not Detect) Ur Phencyclidine Scrn Not Detected (Not Detect) Ur Amphetamines Screen Not Detected (Not Detect) U Benzodiazepines Scrn POSITIVE H (Not Detect) Urine Cocaine Screen Not Detected (Not Detect) U Marijuana (THC) Screen Not Detected (Not Detect) Ethyl Alcohol < 10 mg/dL COVID-19 (ANGÉLICA) (Negative) COVID-19 Clin Com Procedures Laceration Laceration 1: Site: upper extremity Side (If applicable): left Size (cm): 4 Description: linear Depth: simple, single layer and involves muscle layer Local Anesthetic: lidocaine 2% Amount of anesthesia used (mL): 5 Pre-repair: wound explored and irrigated extensively Skin layer closed with: vicryl Size (cm): 4-0 Number of sutures: 3 Technique: simple, interrupted Critical Care Time Critical Care Time Critical Care Time: No Discharge Plan Discharge Clinical Impression: Depression, Suicidal ideation, Laceration of left forearm Patient Disposition: Still a Patient Instructions: Laceration (ED), Depression (ED), Suicide Prevention (ED) Additional Instructions: Take your medications as prescribed. If you were prescribed antibiotics today, it is important that you take your medication to their entirety, do not skip any doses, do not finish them early. Follow-up with your primary care provider this week. Return to the emergency department with new or worsening symptoms. Such as fevers, chills, chest pain, shortness of breath, nausea, vomiting, dizziness, headache, vision changes, lethargy In case of emergency call 911 Return in 7-10 days for suture removal. Prescriptions: No Action citalopram 40 mg tablet 1 tab PO DAILY 0RF atorvastatin 10 mg Tablet 10 mg PO BEDTIME 0RF clozapine 100 mg tablet 350 mg PO BEDTIME 0RF Rx Instructions: takes with 200 mg at bedtime for total bedtime dose of 350 mg clozapine 100 mg tablet 50 mg PO DAILY 0RF quetiapine [Seroquel] 200 mg Tablet 200 mg PO BEDTIME 0RF clonazepam 1 mg Tablet 2 mg PO BEDTIME PRN (Reason: Anxiety) 0RF clonazepam 1 mg Tablet 1 mg PO BID 0RF melatonin 3 mg Tablet 6 mg PO BEDTIME 0RF quetiapine [Seroquel] 100 mg Tablet 100 mg PO BID@0800,1600 0RF levothyroxine 75 mcg Tablet 75 mcg PO DAILY 0RF cyproheptadine 4 mg Tablet 8 mg PO BEDTIME 0RF ibuprofen 400 mg Tablet 400 mg PO Q6H PRN (Reason: Pain (Scale Score 4-6)) 0RF docusate sodium [Colace] 100 mg Capsule 100 mg PO BID 0RF omeprazole 20 mg Capsule,Delayed Release(Dr/Ec) 20 mg PO DAILY 0RF albuterol sulfate [ProAir HFA] 90 mcg/actuation Hfa Aerosol Inhaler 2 puff INHALATION QID PRN (Reason: Shortness Of Breath) 0RF loratadine [Claritin] 10 mg Tablet 10 mg PO DAILY 0RF quetiapine [Seroquel] 50 mg Tablet 50 mg PO DAILY PRN (Reason: Anxiety) 0RF cholecalciferol (vitamin D3) [Vitamin D3] 50 mcg (2,000 unit) Tablet 50 mcg PO DAILY 0RF prazosin 2 mg capsule 8 mg PO BEDTIME 30 Days Qty: 120 0RF trazodone 50 mg Tablet 50 mg PO BEDTIME 30 Days Qty: 30 0RF hydroxyzine HCl 25 mg tablet 1 tab PO BEDTIME PRN (Reason: insomnia) 0RF
[2021-07-14] MEDS: Lidocaine HCl 2 % MPF 5 ML VIAL SUBCUT (20:30)
[2021-07-14 20:33] LABS: COVID-19 Test Negative (Negative)
[2021-07-14 20:56] LABS: MANUAL DIFF FLAG NO
[2021-07-14 20:59] LABS: Basophils Percent Auto 0.3 % (0-2); Hematocrit 37.4 % (37.0-47.0); Hemoglobin 12.5 g/dl (12.0-16.0); Imm Gran Abs Auto 0.03 X10*3/uL (0.00-0.03); Imm Gran Pct Auto 0.3 % (0.0-0.4); Lymphocytes Absolute Auto 3.7 X10*3/uL (1.2-4.9); Lymphocytes Percent Auto 33.6 % (20-40); Mean Corpuscular HGB Conc 33.4 g/dl (31.0-35.0); Mean Corpuscular Hemoglobin 28.4 pg (27.0-33.0); Mean Platelet Volume 10.9 fL (9.4-12.3); Monocytes Absolute Auto 0.7 X10*3/uL (0.1-1.2); Monocytes Percent Auto 6.3 % (2-11); Neutrophils Absolute Auto 6.5 x10*3/uL (2.0-8.3); Neutrophils Percent Auto 59.5 % (45-73); Platelet Count 227 X10*3/uL (160-400); Red Cell Distribution Width 13.2 % (11.0-16.0)
[2021-07-14 21:12] LABS: Ethanol < 10 mg/dL
[2021-07-14 21:14] LABS: Appearance Urine CLEAR; Color Urine YELLOW; Glucose Urine UA NEG (NEG); Leukocyte Esterase Urine NEG (NEG); Nitrite Urine NEG (NEG); Specific Gravity - Urine >= 1.030 (1.005-1.025); Urine Blood NEG (NEG); Urine Ketones NEG (NEG); Urine Protein NEG (NEG-TRACE)
[2021-07-14 21:15] LABS: Alanine Aminotransferase 25 U/L (0-31); Albumin Level 4.5 g/dL (3.5-5.0); Alkaline Phosphatase 85 U/L (39-117); Anion Gap 13 (12-20); Aspartate Amino Transferase 20 U/L (5-31); Bilirubin Total 0.5 mg/dL (0.0-1.0); Blood Urea Nitrogen 10 mg/dL (9-16); Calcium 9.9 mg/dL (8.4-10.2); Carbon Dioxide 24 mmol/L (22-29); Chloride 107 mmol/L (96-108); Creatinine Clr Calc Pharmacy 122.9; Estimated Glomerular Filt Rate > 60; Glucose Random 81 mg/dL (60-115); Magnesium 2.2 mg/dL (1.6-2.6); Potassium 3.7 mmol/L (3.3-5.1); Sodium 140 mmol/L (135-145); Total Protein 7.9 g/dL (6.5-8.0)
[2021-07-14 21:21] LABS: Amphetamine Screen Urine Not Detected (Not Detect); Barbiturates, Urine Not Detected (Not Detect); Cannabinoid Screen Urine Not Detected (Not Detect); Cocaine Screen Urine Not Detected (Not Detect); Fentanyl, urine Not Detected (Not Detect); Opiate Screen Urine Not Detected (Not Detect); Phencyclidine Screen Urine Not Detected (Not Detect)
[2021-07-14 21:35] LABS: Benzodiazepines Screen Urine POSITIVE (Not Detect)
--- NOTE | 2021-07-14 22:27 | PC.NURSE ---
Patient currently in her room resting quietly in bed, [facility] staff at bedside. patient received 3 suture for her left forearm laceration, VSS, [facility] referral completed/confirmed/pending ETA, med rec completed/pending provider approval, will continue to monitor.
[2021-07-15 01:16] VITALS: BP 114/76; PULSE 91; RESP 16; TEMP 36.6; O2SAT 97
[2021-07-15] MEDS: clonazePAM 1 MG TABLET 2 MG PO (01:35)
--- NOTE | 2021-07-15 06:34 | PC.NURSE ---
Patient slept through the night, no distress observed/reported, med rec completed/med list faxed to pharmacy/MAR updated, [facility] staff with patient for 1:1 support, [facility] referral completed/confirmed/pending evaluation in the morning, medication compliant, behavior non concerning, will continue to monitor.
[2021-07-15] MEDS: Levothyroxine Sodium 75 MCG TABLET PO (06:45)
--- NOTE | 2021-07-15 07:15 | PC.NURSE ---
patient appears to remain asleep at present [id number] are even and unlabored patient appears in no distress
[2021-07-15] MEDS: Omeprazole 20 MG CAPSULE.DR PO (10:23)
[2021-07-15] MEDS: Loratadine 10 MG TABLET PO (10:23)
[2021-07-15] MEDS: Docusate Sodium 100 MG CAPSULE PO (10:23)
[2021-07-15] MEDS: Cholecalciferol (Vitamin D3) 25 MCG TABLET 50 MCG PO (10:23)
[2021-07-15] MEDS: clonazePAM 1 MG TABLET PO (10:24)
[2021-07-15] MEDS: Escitalopram Oxalate 20 MG TABLET PO (10:24)
[2021-07-15] MEDS: QUEtiapine Fumarate 100 MG TABLET PO (10:24)
[2021-07-15] MEDS: cloZAPine 25 MG TABLET 50 MG PO (11:02)
--- NOTE | 2021-07-15 11:34 | MHC.CARE ---
CARE Team met with patient in [facility] for risk assessment, she came to [facility] last night by ambulance from her 24 hr staffed senior living after she cut her arm with a staple, reported suicidal ideation upon arrival. She was sitting up in bed, alert and oriented, easily engaged stated that she wanted to be hospitalized but was unable to say why or what precipitated this crisis. Patient does not need an inpatient psychiatric hospitalization, her behavior is consistent with her history of impulsive self-harm and seeking of institutionalization. She offered conflicting answers about her suicidality but ultimately denied ideation or plan to end her life, but did not want to be home. Spoke with house worker Tahira Silva ([phone]) and present staff Judi who were both in agreement that patient is at her baseline and the most appropriate disposition is to discharge home and continue with current providers. Patient called [facility] herself and was told by a clinician that they only have a second floor bedroom but would save it for her. Call to Bogdan at [facility] who reported that they will expect patient to come in for evaluation. This was communicated to patient and her staff. ED provider DIAMOND Khanna in agreement with plan to discharge with staff and follow up with evaluation at [facility] if necessary.
== END 2021-07-15 11:24 ==
PROVIDERS: Physician Assistant; Emergency Provider Emergency Medicine Emergency Medical Services
DX: S51.812A Laceration without foreign body of left forearm, initial encounter (principal); F33.1 Major depressive disorder, recurrent, moderate; R45.851 Suicidal ideations; D72.829 Elevated white blood cell count, unspecified; X78.9XXA Intentional self-harm by unspecified sharp object, initial encounter; Y93.9 Activity, unspecified; Y92.9 Unspecified place or not applicable; Y99.9 Unspecified external cause status; Z20.822 Contact with and (suspected) exposure to COVID-19; Z79.899 Other long term (current) drug therapy
CPT/HCPCS: 12002; 36415; 71045; 80053; 80307; 81003; 82077; 83735; 85025; 87635; 99283; 99284

== ENCOUNTER 2023-03-04 23:13 | Inpatient (IN) | payer OTHER, SELFPAY ==
[2023-03-04 23:33] VITALS: BP 117/74; PULSE 115; RESP 18; TEMP 36.2; O2SAT 99; BMI 40.8
--- NOTE | 2023-03-05 00:42 | PC.ADMIT ---
Josselyn is a 37 year old female patient admitted on a CV from [facility] for PTDS, Borderline Personality D/O, MDD severe recurrent,and panic D/O. Patient is alert and oriented X's 4,pleasant and cooperative although she is noted to be hyper-verbal tangential with perseveration. The patient stated that she was asked to go to [facility] by her therapist because Josselyn was feeling overwhelmed by thoughts of suicidal and self injurious behaviors r/t the up coming anniversary of her grandmothers . she stated that sometimes I have a panic attack that looks like a seizure because my legs get really stiff and shake but, it's not a seizure it's just a panic attack patient is noted to has deep laceration scars on her bilateral forearms from past SIB. However patients skin is intact at the time of admission. patient oriented to the unit, all admission documentation completed, treatment plan initiated, monitor for safety
--- NOTE | 2023-03-05 07:03 | PHA.MEDREC ---
Pharmacy Consult ? Medication Reconciliation Pharmacy has reviewed the medication reconciliation done by RN. Villanueva from [place] .
[2023-03-05 08:49] VITALS: BP 122/66; PULSE 100; RESP 18; TEMP 36.1; O2SAT 97
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
[2023-03-05 20:16] VITALS: BP 123/73; PULSE 94; RESP 18; TEMP 36.8; O2SAT 96
[2023-03-06 06:00] VITALS: BP 96/53; PULSE 96; RESP 22; TEMP 36.8; O2SAT 93
[2023-03-06 11:14] LABS: Alanine Aminotransferase 27 U/L (0-31); Albumin Level 4.1 g/dL (3.5-5.0); Alkaline Phosphatase 87 U/L (39-117); Anion Gap 12 (12-20); Aspartate Amino Transferase 16 U/L (5-31); Bilirubin Total 0.4 mg/dL (0.0-1.0); Blood Urea Nitrogen 15 mg/dL (9-16); Calcium 9.8 mg/dL (8.4-10.2); Carbon Dioxide 21 mmol/L (22-29); Chloride 108 mmol/L (96-108); Cholesterol 168 mg/dL (<200); Estimated Glomerular Filt Rate > 60; Glucose Fasting 106 mg/dL (60-99); HDL Cholesterol 35 mg/dL (>40); LDL Cholesterol Calculated 59 mg/dL (<100); Magnesium 1.7 mg/dL (1.6-2.6); Potassium 3.7 mmol/L (3.3-5.1); Sodium 137 mmol/L (135-145); Total Protein 7.7 g/dL (6.5-8.0); Triglycerides 374 mg/dL (<150)
--- NOTE | 2023-03-06 11:27 | HO.PSYCHPN ---
Subjective Subjective Date of Service: 03/06/23 Reason For Visit: PTSD, Depressio, Panic Subjective Notes: Conditional Voluntary Medical Problems Affecting Mental Status: No Interim History: Met with patient. Discussed with Nursing. Chart reviewed. Overall continues to report feeling down at thoughts of self-harm. Utilizing coping skills and workbooks and staff support. No psychosis. We discussed increasing total clozapine dose from 250 mg up to 275 mg, while lowering total Seroquel dose from 400 mg down to 350 mg total i.e. Clozapine 50 mg morning, 225 mg at bedtime, Seroquel bedtime dose will remain 200 mg and daytime doses will be lowered from 100 mg twice daily down to 75 mg twice daily. Medication Compliance: Yes Side effects from medications: No Attending Groups: Yes Review of Systems Acute medical concerns: No Review of Systems Review of Systems Yes all other systems are reviewed and are negative Mental Status Exam Mental Status Exam Narrative: Pleasant. Engaged. Hospital clothing. Fair self-care. Child-like. [place]. Endorses feeling depressed and thoughts of self-harm, but also supported by staff. Intermittent suicidal thoughts no plans or intent. No HI. No agitation or psychosis. Insight and judgment fair Diagnostics Vital Signs (24Hr): Vital Signs - 24 hr 03/05/23 20:16 03/06/23 06:00 Temperature 98.3 F 98.3 F Pulse Rate 94 96 Respiratory Rate 18 22 H Blood Pressure 123/73 96/53 L Pulse Oximetry 96 93 Oxygen Delivery Method Room Air Room Air BMI result Body Mass Index 40.8 Labs 03/06/23 10:21 Labs: Laboratory Results - last 48 hr 03/05/23 03/06/23 11:18 10:21 Absolute Neuts (auto) 6.4 Sodium 137 Potassium 3.7 Chloride 108 Carbon Dioxide 21 L Anion Gap 12 BUN 15 Creatinine 0.79 Estim Creat Clear Calc 121.0 Estimated GFR > 60 Fasting Glucose 106 H Estimat Average Glucose 91 Hemoglobin A1c % 4.8 Calcium 9.8 Magnesium 1.7 Total Bilirubin 0.4 AST 16 ALT 27 Alkaline Phosphatase 87 Total Protein 7.7 Albumin 4.1 Triglycerides 374 H Cholesterol 168 LDL Cholesterol, Calc 59 HDL Cholesterol 35 L Medications Medications Current Medications Acetaminophen (Acetaminophen 325 Mg Tablet) 650 mg PO Q6H PRN PRN Reason: Headache/Pain Mild Scale (1-3) Al Hydroxide/Mg Hydroxide (Magnesium Hydrox/Alum Hydrox 30 Ml Oral.Susp) 30 ml PO Q6H PRN PRN Reason: Heartburn/Nausea Albuterol Sulfate (Albuterol Sulfate 90 Mcg 8 Gm Inhaler) 2 puff INHALE RQ6H PRN PRN Reason: Shortness of Breath Atorvastatin Calcium (Atorvastatin Calcium 10 Mg Tablet) 10 mg PO BEDTIME [facility] Last Admin: 03/05/23 20:20 Dose: 10 mg Clonazepam (Clonazepam 1 Mg Tablet) 1 mg PO BID [facility] Last Admin: 03/06/23 08:44 Dose: 1 mg Clonazepam (Clonazepam 1 Mg Tablet) 1 mg PO BID PRN PRN Reason: Anxiety Last Admin: 03/05/23 20:20 Dose: 1 mg Clozapine (Clozapine 100 Mg Tablet) 200 mg PO BEDTIME [facility] Last Admin: 03/05/23 20:20 Dose: 200 mg Clozapine (Clozapine 25 Mg Tablet) 50 mg PO DAILY [facility] Last Admin: 03/06/23 08:44 Dose: 50 mg Cyproheptadine HCl (Cyproheptadine Hcl 4 Mg Tablet) 8 mg PO BEDTIME [facility] Last Admin: 03/05/23 20:19 Dose: 8 mg Docusate Sodium (Docusate Sodium 100 Mg Capsule) 100 mg PO BID [facility] Last Admin: 03/06/23 08:44 Dose: 100 mg Escitalopram Oxalate (Escitalopram Oxalate 10 Mg Tablet) 10 mg PO DAILY [facility] Last Admin: 03/06/23 08:44 Dose: 10 mg Hydroxyzine HCl (Hydroxyzine Hcl 25 Mg Tablet) 25 mg PO Q6H PRN PRN Reason: Anxiety Hydroxyzine HCl (Hydroxyzine Hcl 50 Mg Tablet) 50 mg PO Q12H PRN PRN Reason: Anxiety Ibuprofen (Ibuprofen 400 Mg Tablet) 400 mg PO Q6H PRN PRN Reason: Pain, Moderate(Pain Scale 4-6) Levothyroxine Sodium (Levothyroxine Sodium 100 Mcg Tablet) 100 mcg PO DAILY@0600 [facility] Last Admin: 03/06/23 06:37 Dose: 100 mcg Loratadine (Loratadine 10 Mg Tablet) 10 mg PO DAILY [facility] Last Admin: 03/06/23 08:44 Dose: 10 mg Magnesium Hydroxide (Milk Of Magnesia 30 Ml Oral.Susp) 30 ml PO DAILY PRN PRN Reason: Constipation Melatonin (Melatonin 3 Mg Tablet) 6 mg PO BEDTIME PRN PRN Reason: Sleep Last Admin: 03/05/23 20:19 Dose: 6 mg Omeprazole (Omeprazole 20 Mg Capsule.Dr) 20 mg PO DAILY@0630 [facility] Last Admin: 03/06/23 07:35 Dose: 20 mg Polyethylene Glycol (Polyethylene Glycol 3350 17 Gm Powd.Pack) 17 gm PO DAILY [facility] Last Admin: 03/06/23 08:47 Dose: Not Given Prazosin HCl (Prazosin Hcl 1 Mg Capsule) 8 mg PO BEDTIME [facility] Last Admin: 03/05/23 20:19 Dose: 8 mg Quetiapine Fumarate (Quetiapine Fumarate 50 Mg Tablet) 50 mg PO TID PRN PRN Reason: anxiety Last Admin: 03/05/23 20:20 Dose: 50 mg Quetiapine Fumarate (Quetiapine Fumarate 200 Mg Tablet) 200 mg PO BEDTIME [facility] Last Admin: 03/05/23 20:20 Dose: 200 mg Quetiapine Fumarate (Quetiapine Fumarate 100 Mg Tablet) 100 mg PO BID@0800,1400 [facility] Last Admin: 03/06/23 07:35 Dose: 100 mg Trazodone HCl (Trazodone Hcl 50 Mg Tablet) 50 mg PO BEDTIME MRX1 PRN PRN Reason: Insomnia Vitamin D (Cholecalciferol (Vitamin D3) 25 Mcg Tablet) 50 mcg PO DAILY [facility] Last Admin: 03/06/23 08:44 Dose: 50 mcg Allergies Allergies Allergy/AdvReac Type Severity Reaction Status Date / Time clindamycin [CLINDAMYCIN] Allergy Unknown UNKNOWN Verified 06/28/21 05:57 codeine [CODEINE] Allergy Unknown UNKNOWN Verified 06/28/21 05:57 erythromycin base Allergy Unknown UNKNOWN Verified 06/28/21 05:57 [ERYTHROMYCIN BASE] Macrolide Antibiotics Allergy Unknown UNKNOWN Verified 06/28/21 05:57 [MACROLIDE ANTIBIOTICS] meperidine [From DEMEROL] Allergy Unknown UNKNOWN Verified 06/28/21 05:57 Penicillins [PENICILLINS] Allergy Unknown UNKNOWN Verified 06/28/21 05:57 Sulfa (Sulfonamide Allergy Unknown UNKNOWN Verified 06/28/21 05:57 Antibiotics) [SULFA (SULFONAMIDE ANTIBIOTICS)] Assessment & Plan Assessment & Plan (1) PTSD (post-traumatic stress disorder): Status: Acute Code(s): F43.10 - Post-traumatic stress disorder, unspecified (2) Depression: Status: Acute Code(s): F32.A - Depression, unspecified Plan presents with history of severe PTSD and depression and with that self injuries behavior, suicidality and suicide attempts. Currently in stable residential living environment. Main stressor appears to be the 1 year anniversary of her grandmother's passing. Is on clozapine and Seroquel for depression, PTSD and suicidality. May consider adjusting clozapine dose, while lowering Seroquel dose. Otherwise adjust to the unit and milieu. 03/06/23: We discussed increasing total clozapine dose from 250 mg up to 275 mg, while lowering total Seroquel dose from 400 mg down to 350 mg total i.e. Clozapine 50 mg morning, 225 mg at bedtime, Seroquel bedtime dose will remain 200 mg and daytime doses will be lowered from 100 mg twice daily down to 75 mg twice daily. Reason for continued inpatient stay Substantial Risk for: harm to self Time Spent With Patient Time: Total time managing care of this patient today ____ minutes.
[2023-03-06 11:28] LABS: Free T4 (Free Thyroxine) 0.83 ng/dL (0.71-1.85); Thyroid Stimulating Hormone 1.15 uIU/mL (0.32-4.0)
[2023-03-06 20:03] VITALS: BP 130/70; PULSE 100; RESP 18; TEMP 36.8; O2SAT 97
[2023-03-07 08:15] VITALS: BP 123/62; PULSE 80; RESP 22; TEMP 36.2; O2SAT 92
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
[2023-03-07] MEDS: PRAZOSIN HCL 8 MG PO (20:15)
[2023-03-07] MEDS: clonazePAM 1 MG TABLET PO (20:15)
[2023-03-07] MEDS: Cyproheptadine HCl 4 MG TABLET 8 MG PO (20:16)
[2023-03-07] MEDS: cloZAPine 200 MG, cloZAPine 25 MG 225 MG PO (20:16)
[2023-03-07] MEDS: Atorvastatin Calcium 10 MG TABLET PO (20:16)
[2023-03-07] MEDS: Docusate Sodium 100 MG CAPSULE PO (20:16)
[2023-03-07] MEDS: QUEtiapine Fumarate 200 MG TABLET PO (20:16)
[2023-03-07 20:20] VITALS: BP 118/72; PULSE 102; RESP 18; TEMP 36.4; O2SAT 96
[2023-03-07] MEDS: Ibuprofen 400 MG TABLET PO (20:42)
[2023-03-08] MEDS: Levothyroxine Sodium 100 MCG TABLET PO (06:48)
[2023-03-08 07:15] VITALS: BP 105/60; PULSE 82; RESP 16; TEMP 36.3; O2SAT 96
[2023-03-08] MEDS: clonazePAM 1 MG TABLET PO ×2 (08:08→20:55)
[2023-03-08] MEDS: Loratadine 10 MG TABLET PO (08:08)
[2023-03-08] MEDS: QUEtiapine Fumarate 50 MG TABLET PO ×3 (08:08→23:18)
[2023-03-08] MEDS: Omeprazole 20 MG CAPSULE.DR PO (08:08)
[2023-03-08] MEDS: Cholecalciferol (Vitamin D3) 25 MCG TABLET 50 MCG PO (08:08)
[2023-03-08] MEDS: Escitalopram Oxalate 10 MG TABLET PO (08:09)
[2023-03-08] MEDS: cloZAPine 25 MG TABLET 50 MG PO (08:09)
[2023-03-08] MEDS: Docusate Sodium 100 MG CAPSULE PO ×2 (08:09→20:54)
[2023-03-08] MEDS: hydrOXYzine HCL 50 MG TABLET PO (13:29)
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
[2023-03-08] MEDS: QUEtiapine Fumarate 100 MG TABLET PO (15:35)
[2023-03-08 20:30] VITALS: BP 118/75; PULSE 86; RESP 16; TEMP 36.4; O2SAT 97
[2023-03-08] MEDS: PRAZOSIN HCL 8 MG PO (20:53)
[2023-03-08] MEDS: cloZAPine 200 MG, cloZAPine 25 MG 225 MG PO (20:54)
[2023-03-08] MEDS: Cyproheptadine HCl 4 MG TABLET 8 MG PO (20:54)
[2023-03-08] MEDS: Melatonin 3 MG TABLET 6 MG PO (20:55)
[2023-03-08] MEDS: Atorvastatin Calcium 10 MG TABLET PO (20:55)
[2023-03-08] MEDS: QUEtiapine Fumarate 200 MG TABLET PO (20:55)
[2023-03-09] MEDS: Levothyroxine Sodium 100 MCG TABLET PO (06:35)
[2023-03-09] MEDS: cloZAPine 25 MG TABLET 50 MG PO (10:12)
[2023-03-09] MEDS: Loratadine 10 MG TABLET PO (10:18)
[2023-03-09] MEDS: clonazePAM 1 MG TABLET PO ×2 (10:18→20:07)
[2023-03-09] MEDS: QUEtiapine Fumarate 50 MG TABLET PO ×3 (10:18→17:55)
[2023-03-09] MEDS: Omeprazole 20 MG CAPSULE.DR PO (10:18)
[2023-03-09] MEDS: Cholecalciferol (Vitamin D3) 25 MCG TABLET 50 MCG PO (10:18)
[2023-03-09] MEDS: Docusate Sodium 100 MG CAPSULE PO ×2 (10:19→20:08)
[2023-03-09] MEDS: Escitalopram Oxalate 10 MG TABLET PO (10:19)
[2023-03-09] MEDS: QUEtiapine Fumarate 100 MG TABLET PO (12:41)
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
[2023-03-09 20:00] VITALS: BP 128/71; PULSE 99; RESP 18; TEMP 36.2; O2SAT 96
[2023-03-09] MEDS: Melatonin 3 MG TABLET 6 MG PO (20:06)
[2023-03-09] MEDS: QUEtiapine Fumarate 200 MG TABLET PO (20:07)
[2023-03-09] MEDS: Atorvastatin Calcium 10 MG TABLET PO (20:07)
[2023-03-09] MEDS: PRAZOSIN HCL 8 MG PO (20:07)
[2023-03-09] MEDS: Cyproheptadine HCl 4 MG TABLET 8 MG PO (20:07)
[2023-03-09] MEDS: cloZAPine 200 MG, cloZAPine 25 MG 225 MG PO (20:07)
[2023-03-10 06:00] VITALS: BP 116/56; PULSE 84; RESP 14; TEMP 36.4; O2SAT 92
[2023-03-10] MEDS: Levothyroxine Sodium 100 MCG TABLET PO (06:55)
[2023-03-10] MEDS: QUEtiapine Fumarate 50 MG TABLET PO ×3 (08:52→15:20)
[2023-03-10] MEDS: Loratadine 10 MG TABLET PO (08:52)
[2023-03-10] MEDS: Cholecalciferol (Vitamin D3) 25 MCG TABLET 50 MCG PO (08:52)
[2023-03-10] MEDS: Docusate Sodium 100 MG CAPSULE PO ×2 (08:53→20:18)
[2023-03-10] MEDS: clonazePAM 1 MG TABLET PO (08:53)
[2023-03-10] MEDS: Escitalopram Oxalate 10 MG TABLET PO (08:53)
[2023-03-10] MEDS: cloZAPine 25 MG TABLET 50 MG PO (08:53)
[2023-03-10] MEDS: Omeprazole 20 MG CAPSULE.DR PO (08:53)
--- NOTE | 2023-03-10 14:30 | HO.PSYCHPN ---
Subjective Subjective Date of Service: 03/10/23 Reason For Visit: PTSD, Depressio, Panic Interim History: calm, cooperative. c/o nightmares. still SI, but improving. agreeable to increase prazosin to 9 mg QHS. per staff, slept more than 8 hours. no complaints. using PRNs. Mental Status Exam Mental Status Exam Narrative: gaze palsy, appropriately dressed and groomed, lac scars on both forearms. cooperative with interview. no PMA/PMR. speech incr in rate, nml amount. decr latency. nml tone. thoughts linear and logical. affect flexible, consistent with context, normo-intense, non-labile. mood anxious. +SI. no SIBI/HI/AVH expressed. Diagnostics Vital Signs (24Hr): Vital Signs - 24 hr 03/09/23 20:00 03/10/23 06:00 Temperature 97.2 F 97.5 F Pulse Rate 99 84 Respiratory Rate 18 14 Blood Pressure 128/71 116/56 L Pulse Oximetry 96 92 Oxygen Delivery Method Room Air Room Air BMI result Body Mass Index 40.8 Labs 03/06/23 10:21 Medications Medications Current Medications Acetaminophen (Acetaminophen 325 Mg Tablet) 650 mg PO Q6H PRN PRN Reason: Headache/Pain Mild Scale (1-3) Al Hydroxide/Mg Hydroxide (Magnesium Hydrox/Alum Hydrox 30 Ml Oral.Susp) 30 ml PO Q6H PRN PRN Reason: Heartburn/Nausea Albuterol Sulfate (Albuterol Sulfate 90 Mcg 8 Gm Inhaler) 2 puff INHALE RQ6H PRN PRN Reason: Shortness of Breath Atorvastatin Calcium (Atorvastatin Calcium 10 Mg Tablet) 10 mg PO BEDTIME [facility] Last Admin: 03/09/23 20:07 Dose: 10 mg Clozapine (Clozapine 25 Mg Tablet) 50 mg PO DAILY [facility] Last Admin: 03/10/23 08:53 Dose: 50 mg Clozapine 200 mg/ Clozapine 25 (mg) 225 mg PO BEDTIME [facility] Last Admin: 03/09/23 20:07 Dose: 225 mg Cyproheptadine HCl (Cyproheptadine Hcl 4 Mg Tablet) 8 mg PO BEDTIME [facility] Last Admin: 03/09/23 20:07 Dose: 8 mg Docusate Sodium (Docusate Sodium 100 Mg Capsule) 100 mg PO BID [facility] Last Admin: 03/10/23 08:53 Dose: 100 mg Escitalopram Oxalate (Escitalopram Oxalate 10 Mg Tablet) 10 mg PO DAILY [facility] Last Admin: 03/10/23 08:53 Dose: 10 mg Hydroxyzine HCl (Hydroxyzine Hcl 25 Mg Tablet) 25 mg PO Q6H PRN PRN Reason: Anxiety Last Admin: 03/07/23 16:06 Dose: 25 mg Hydroxyzine HCl (Hydroxyzine Hcl 50 Mg Tablet) 50 mg PO Q12H PRN PRN Reason: Anxiety Last Admin: 03/08/23 13:29 Dose: 50 mg Ibuprofen (Ibuprofen 400 Mg Tablet) 400 mg PO Q6H PRN PRN Reason: Pain, Moderate(Pain Scale 4-6) Last Admin: 03/07/23 20:42 Dose: 400 mg Levothyroxine Sodium (Levothyroxine Sodium 100 Mcg Tablet) 100 mcg PO DAILY@0600 [facility] Last Admin: 03/10/23 06:55 Dose: 100 mcg Loratadine (Loratadine 10 Mg Tablet) 10 mg PO DAILY [facility] Last Admin: 03/10/23 08:52 Dose: 10 mg Magnesium Hydroxide (Milk Of Magnesia 30 Ml Oral.Susp) 30 ml PO DAILY PRN PRN Reason: Constipation Melatonin (Melatonin 3 Mg Tablet) 6 mg PO BEDTIME PRN PRN Reason: Sleep Last Admin: 03/09/23 20:06 Dose: 6 mg Omeprazole (Omeprazole 20 Mg Capsule.Dr) 20 mg PO DAILY@0630 [facility] Last Admin: 03/10/23 08:53 Dose: 20 mg Polyethylene Glycol (Polyethylene Glycol 3350 17 Gm Powd.Pack) 17 gm PO DAILY [facility] Last Admin: 03/10/23 08:53 Dose: Not Given Prazosin HCl (Prazosin Hcl 1 Mg Capsule) 4 mg PO BEDTIME [facility] Prazosin HCl (Prazosin Hcl 5 Mg Capsule) 5 mg PO BEDTIME [facility] Quetiapine Fumarate (Quetiapine Fumarate 50 Mg Tablet) 50 mg PO TID PRN PRN Reason: anxiety Last Admin: 03/09/23 17:55 Dose: 50 mg Quetiapine Fumarate (Quetiapine Fumarate 200 Mg Tablet) 200 mg PO BEDTIME [facility] Last Admin: 03/09/23 20:07 Dose: 200 mg Quetiapine Fumarate (Quetiapine Fumarate 50 Mg Tablet) 50 mg PO BID@0800,1400 [facility] Last Admin: 03/10/23 14:10 Dose: 50 mg Quetiapine Fumarate (Quetiapine Fumarate 100 Mg Tablet) 100 mg PO Q6H PRN PRN Reason: severe anxiety Last Admin: 03/09/23 12:41 Dose: 100 mg Trazodone HCl (Trazodone Hcl 50 Mg Tablet) 50 mg PO BEDTIME MRX1 PRN PRN Reason: Insomnia Vitamin D (Cholecalciferol (Vitamin D3) 25 Mcg Tablet) 50 mcg PO DAILY [facility] Last Admin: 03/10/23 08:52 Dose: 50 mcg Allergies Allergies Allergy/AdvReac Type Severity Reaction Status Date / Time clindamycin [CLINDAMYCIN] Allergy Unknown UNKNOWN Verified 06/28/21 05:57 codeine [CODEINE] Allergy Unknown UNKNOWN Verified 06/28/21 05:57 erythromycin base Allergy Unknown UNKNOWN Verified 06/28/21 05:57 [ERYTHROMYCIN BASE] Macrolide Antibiotics Allergy Unknown UNKNOWN Verified 06/28/21 05:57 [MACROLIDE ANTIBIOTICS] meperidine [From DEMEROL] Allergy Unknown UNKNOWN Verified 06/28/21 05:57 Penicillins [PENICILLINS] Allergy Unknown UNKNOWN Verified 06/28/21 05:57 Sulfa (Sulfonamide Allergy Unknown UNKNOWN Verified 06/28/21 05:57 Antibiotics) [SULFA (SULFONAMIDE ANTIBIOTICS)] Assessment & Plan Assessment & Plan (1) PTSD (post-traumatic stress disorder): Status: Acute Code(s): F43.10 - Post-traumatic stress disorder, unspecified (2) Depression: Status: Acute Code(s): F32.A - Depression, unspecified Plan presents with history of severe PTSD and depression and with that self injuries behavior, suicidality and suicide attempts. Currently in stable [facility] living environment. Main stressor appears to be the 1 year anniversary of her grandmother's passing. Is on clozapine and Seroquel for depression, PTSD and suicidality. May consider adjusting clozapine dose, while lowering Seroquel dose. Otherwise adjust to the unit and milieu. 03/06/23: We discussed increasing total clozapine dose from 250 mg up to 275 mg, while lowering total Seroquel dose from 400 mg down to 350 mg total i.e. Clozapine 50 mg morning, 225 mg at bedtime, Seroquel bedtime dose will remain 200 mg and daytime doses will be lowered from 100 mg twice daily down to 75 mg twice daily. 03/07: calm, cooperative. endorsing SI, says she will let MD know when she is feeling ready for discharge. discuss chaotic environment at her [facility], where a certain violent peer seems to be disrupting the milieu. 03/08: panic attach last night. add seroquel 100 mg PRNs for severe anxiety. otherwise continue current mgmt. +SIBI. 03/09: episode of SIBI and nearly SIB last night, RN intervened after roommate alerted staff. otherwise no notable events or behaviors. continue current mgmt. 03/10: c/o nightmares, agrees to increase prazosin to 9 QHS. otherwise continue current mgmt. Reason for continued inpatient stay Substantial Risk for: harm to self, inability to function and rapid decompensation Time Spent With Patient Time: Total time managing care of this patient today __25__ minutes.
[2023-03-10] MEDS: hydrOXYzine HCL 50 MG TABLET PO (15:22)
[2023-03-10 19:55] VITALS: BP 116/77; PULSE 102; RESP 18; TEMP 36.7; O2SAT 98
[2023-03-10] MEDS: cloZAPine 200 MG, cloZAPine 25 MG 225 MG PO (20:18)
[2023-03-10] MEDS: Melatonin 3 MG TABLET 6 MG PO (20:18)
[2023-03-10] MEDS: Prazosin HCL 5 MG CAPSULE PO (20:18)
[2023-03-10] MEDS: QUEtiapine Fumarate 200 MG TABLET PO (20:18)
[2023-03-10] MEDS: Atorvastatin Calcium 10 MG TABLET PO (20:18)
[2023-03-10] MEDS: Prazosin HCL 1 MG CAPSULE 4 MG PO (20:18)
[2023-03-10] MEDS: Cyproheptadine HCl 4 MG TABLET 8 MG PO (20:23)
[2023-03-11] MEDS: Levothyroxine Sodium 100 MCG TABLET PO (07:11)
[2023-03-11 08:55] VITALS: BP 116/69; PULSE 97; RESP 16; TEMP 36.7; O2SAT 95
[2023-03-11] MEDS: Cholecalciferol (Vitamin D3) 25 MCG TABLET 50 MCG PO (09:19)
[2023-03-11] MEDS: QUEtiapine Fumarate 50 MG TABLET PO ×2 (09:20→14:04)
[2023-03-11] MEDS: cloZAPine 25 MG TABLET 50 MG PO (09:20)
[2023-03-11] MEDS: Docusate Sodium 100 MG CAPSULE PO ×2 (09:20→19:09)
[2023-03-11] MEDS: Loratadine 10 MG TABLET PO (09:20)
[2023-03-11] MEDS: Omeprazole 20 MG CAPSULE.DR PO (09:20)
[2023-03-11] MEDS: Escitalopram Oxalate 10 MG TABLET PO (09:20)
--- NOTE | 2023-03-11 15:11 | P.PNPSI_ITS ---
Subjective Subjective Date of Service: 03/11/23 Reason For Visit: PTSD, Depressio, Panic Interim History: calm, cooperative. hoping to feel better next week, thinking of discharging or . reports 3-hr long panic attack again last night. close to SIB but restrained herself. forbearance was lauded and supported. per staff, no dep/anx yesterday morning. taking meds. napping. pleasant, cooperative. eves anxious. taking PRNs. slept 9 hours. Mental Status Exam Mental Status Exam Narrative: gaze palsy, appropriately dressed and groomed, lac scars on both forearms. cooperative with interview. no PMA/PMR. speech incr in rate, nml amount. decr latency. nml tone. thoughts linear and logical. affect flexible, consistent with context, normo-intense, non-labile. mood anxious. +SIBI last NOC. no SI/HI/AVH expressed. Diagnostics Vital Signs (24Hr): Vital Signs - 24 hr 03/10/23 19:55 Temperature 98.0 F Pulse Rate 102 H Respiratory Rate 18 Blood Pressure 116/77 Pulse Oximetry 98 Oxygen Delivery Method Room Air BMI result Body Mass Index 40.8 Labs 03/06/23 10:21 Medications Medications Current Medications Acetaminophen (Acetaminophen 325 Mg Tablet) 650 mg PO Q6H PRN PRN Reason: Headache/Pain Mild Scale (1-3) Al Hydroxide/Mg Hydroxide (Magnesium Hydrox/Alum Hydrox 30 Ml Oral.Susp) 30 ml PO Q6H PRN PRN Reason: Heartburn/Nausea Albuterol Sulfate (Albuterol Sulfate 90 Mcg 8 Gm Inhaler) 2 puff INHALE RQ6H PRN PRN Reason: Shortness of Breath Atorvastatin Calcium (Atorvastatin Calcium 10 Mg Tablet) 10 mg PO BEDTIME [facility] Last Admin: 03/10/23 20:18 Dose: 10 mg Clozapine (Clozapine 25 Mg Tablet) 50 mg PO DAILY [facility] Last Admin: 03/11/23 09:20 Dose: 50 mg Clozapine 200 mg/ Clozapine 25 (mg) 225 mg PO BEDTIME [facility] Last Admin: 03/10/23 20:18 Dose: 225 mg Cyproheptadine HCl (Cyproheptadine Hcl 4 Mg Tablet) 8 mg PO BEDTIME [facility] Last Admin: 03/10/23 20:23 Dose: 8 mg Docusate Sodium (Docusate Sodium 100 Mg Capsule) 100 mg PO BID [facility] Last Admin: 03/11/23 09:20 Dose: 100 mg Escitalopram Oxalate (Escitalopram Oxalate 10 Mg Tablet) 10 mg PO DAILY [facility] Last Admin: 03/11/23 09:20 Dose: 10 mg Hydroxyzine HCl (Hydroxyzine Hcl 25 Mg Tablet) 25 mg PO Q6H PRN PRN Reason: Anxiety Last Admin: 03/07/23 16:06 Dose: 25 mg Hydroxyzine HCl (Hydroxyzine Hcl 50 Mg Tablet) 50 mg PO Q12H PRN PRN Reason: Anxiety Last Admin: 03/10/23 15:22 Dose: 50 mg Ibuprofen (Ibuprofen 400 Mg Tablet) 400 mg PO Q6H PRN PRN Reason: Pain, Moderate(Pain Scale 4-6) Last Admin: 03/07/23 20:42 Dose: 400 mg Levothyroxine Sodium (Levothyroxine Sodium 100 Mcg Tablet) 100 mcg PO DAILY@0600 [facility] Last Admin: 03/11/23 07:11 Dose: 100 mcg Loratadine (Loratadine 10 Mg Tablet) 10 mg PO DAILY [facility] Last Admin: 03/11/23 09:20 Dose: 10 mg Magnesium Hydroxide (Milk Of Magnesia 30 Ml Oral.Susp) 30 ml PO DAILY PRN PRN Reason: Constipation Melatonin (Melatonin 3 Mg Tablet) 6 mg PO BEDTIME PRN PRN Reason: Sleep Last Admin: 03/10/23 20:18 Dose: 6 mg Omeprazole (Omeprazole 20 Mg Capsule.Dr) 20 mg PO DAILY@0630 [facility] Last Admin: 03/11/23 09:20 Dose: 20 mg Polyethylene Glycol (Polyethylene Glycol 3350 17 Gm Powd.Pack) 17 gm PO DAILY [facility] Last Admin: 03/11/23 09:20 Dose: Not Given Prazosin HCl (Prazosin Hcl 1 Mg Capsule) 4 mg PO BEDTIME [facility] Last Admin: 03/10/23 20:18 Dose: 4 mg Prazosin HCl (Prazosin Hcl 5 Mg Capsule) 5 mg PO BEDTIME [facility] Last Admin: 03/10/23 20:18 Dose: 5 mg Quetiapine Fumarate (Quetiapine Fumarate 50 Mg Tablet) 50 mg PO TID PRN PRN Reason: anxiety Last Admin: 03/10/23 15:20 Dose: 50 mg Quetiapine Fumarate (Quetiapine Fumarate 200 Mg Tablet) 200 mg PO BEDTIME [facility] Last Admin: 03/10/23 20:18 Dose: 200 mg Quetiapine Fumarate (Quetiapine Fumarate 50 Mg Tablet) 50 mg PO BID@0800,1400 [facility] Last Admin: 03/11/23 14:04 Dose: 50 mg Quetiapine Fumarate (Quetiapine Fumarate 100 Mg Tablet) 100 mg PO Q6H PRN PRN Reason: severe anxiety Last Admin: 03/09/23 12:41 Dose: 100 mg Trazodone HCl (Trazodone Hcl 50 Mg Tablet) 50 mg PO BEDTIME MRX1 PRN PRN Reason: Insomnia Vitamin D (Cholecalciferol (Vitamin D3) 25 Mcg Tablet) 50 mcg PO DAILY [facility] Last Admin: 03/11/23 09:19 Dose: 50 mcg Allergies Allergies Allergy/AdvReac Type Severity Reaction Status Date / Time clindamycin [CLINDAMYCIN] Allergy Unknown UNKNOWN Verified 06/28/21 05:57 codeine [CODEINE] Allergy Unknown UNKNOWN Verified 06/28/21 05:57 erythromycin base Allergy Unknown UNKNOWN Verified 06/28/21 05:57 [ERYTHROMYCIN BASE] Macrolide Antibiotics Allergy Unknown UNKNOWN Verified 06/28/21 05:57 [MACROLIDE ANTIBIOTICS] meperidine [From DEMEROL] Allergy Unknown UNKNOWN Verified 06/28/21 05:57 Penicillins [PENICILLINS] Allergy Unknown UNKNOWN Verified 06/28/21 05:57 Sulfa (Sulfonamide Allergy Unknown UNKNOWN Verified 06/28/21 05:57 Antibiotics) [SULFA (SULFONAMIDE ANTIBIOTICS)] Assessment & Plan Assessment & Plan (1) PTSD (post-traumatic stress disorder): Status: Acute Code(s): F43.10 - Post-traumatic stress disorder, unspecified (2) Depression: Status: Acute Code(s): F32.A - Depression, unspecified Plan presents with history of severe PTSD and depression and with that self injuries behavior, suicidality and suicide attempts. Currently in stable retirement living environment. Main stressor appears to be the 1 year anniversary of her grandmother's passing. Is on clozapine and Seroquel for depression, PTSD and suicidality. May consider adjusting clozapine dose, while lowering Seroquel dose. Otherwise adjust to the unit and milieu. 03/06/23: We discussed increasing total clozapine dose from 250 mg up to 275 mg, while lowering total Seroquel dose from 400 mg down to 350 mg total i.e. Clozapine 50 mg morning, 225 mg at bedtime, Seroquel bedtime dose will remain 200 mg and daytime doses will be lowered from 100 mg twice daily down to 75 mg twice daily. 03/07: calm, cooperative. endorsing SI, says she will let MD know when she is feeling ready for discharge. discuss chaotic environment at her retirement, where a certain violent peer seems to be disrupting the milieu. 03/08: panic attach last night. add seroquel 100 mg PRNs for severe anxiety. otherwise continue current mgmt. +SIBI. 03/09: episode of SIBI and nearly SIB last night, RN intervened after roommate alerted staff. otherwise no notable events or behaviors. continue current mgmt. 03/10: c/o nightmares, agrees to increase prazosin to 9 QHS. otherwise continue current mgmt. 03/11: continue current mgmt. intermittent episodes of SIBI and SI, has not harmed herself on unit. practicing coping skills. Reason for continued inpatient stay Substantial Risk for: harm to self, inability to function and rapid decompensation Time Spent With Patient Time: Total time managing care of this patient today _25___ minutes.
[2023-03-11] MEDS: hydrOXYzine HCL 50 MG TABLET PO (15:51)
[2023-03-11] MEDS: QUEtiapine Fumarate 100 MG TABLET PO (15:51)
--- NOTE | 2023-03-11 15:56 | PC.NURSE ---
THIS PT REQUESTED THAT SHE RECEIVE HER HS MEDICATIONS, TONIGHT AT 1900. THIS RN DAPHNE TEXTED DR GASCA TO ASK PERMISSION, WHICH HE GAVE.
[2023-03-11] MEDS: Prazosin HCL 5 MG CAPSULE PO (19:07)
[2023-03-11] MEDS: Prazosin HCL 1 MG CAPSULE 4 MG PO (19:08)
[2023-03-11] MEDS: cloZAPine 200 MG, cloZAPine 25 MG 225 MG PO (19:08)
[2023-03-11] MEDS: QUEtiapine Fumarate 200 MG TABLET PO (19:08)
[2023-03-11] MEDS: Atorvastatin Calcium 10 MG TABLET PO (19:09)
[2023-03-11] MEDS: Cyproheptadine HCl 4 MG TABLET 8 MG PO (19:09)
[2023-03-11 20:13] VITALS: BP 125/58; PULSE 92; RESP 16; TEMP 36.9; O2SAT 94
[2023-03-12] MEDS: Levothyroxine Sodium 100 MCG TABLET PO (06:18)
[2023-03-12 07:25] VITALS: BP 111/54; PULSE 81; RESP 14; TEMP 36.7; O2SAT 93
[2023-03-12 07:52] LABS: Neut%MD 58.8 %; Neutrophils Absolute Auto 5.4 x10*3/uL (2.0-8.3); WBCANC 9.3 X10*3/uL
[2023-03-12] MEDS: Cholecalciferol (Vitamin D3) 25 MCG TABLET 50 MCG PO (08:53)
[2023-03-12] MEDS: cloZAPine 25 MG TABLET 50 MG PO (08:54)
[2023-03-12] MEDS: Escitalopram Oxalate 10 MG TABLET PO (08:54)
[2023-03-12] MEDS: Omeprazole 20 MG CAPSULE.DR PO (08:54)
[2023-03-12] MEDS: QUEtiapine Fumarate 50 MG TABLET PO ×2 (08:54→13:46)
[2023-03-12] MEDS: Loratadine 10 MG TABLET PO (08:54)
[2023-03-12] MEDS: Docusate Sodium 100 MG CAPSULE PO ×2 (08:55→20:23)
[2023-03-12] MEDS: QUEtiapine Fumarate 100 MG TABLET PO (10:14)
--- NOTE | 2023-03-12 12:46 | HO.PSYCHPN ---
Subjective Subjective Date of Service: 03/12/23 Reason For Visit: PTSD, Depressio, Panic Subjective Notes: Conditional Voluntary Interim History: Patient was seen and discussed in rounds today. Records and plans were reviewed. She states that she is doing better and has been able to cope with urges for self-destructive behaviors. Yesterday she had a long panic attack. Current medications were reviewed and maintained with no changes. She denies any side effects. No active suicidal ideations. Eating and sleeping adequately Medication Compliance: Yes Side effects from medications: No Attending Groups: Yes Review of Systems Review of Systems Yes all other systems are reviewed and are negative Mental Status Exam Mental Status Exam Narrative: In today's visit she is alert, oriented and pleasant. Normal speech. She has a gaze palsy. She denies any active suicidal ideations. She has urges to hurt herself but has been able to control. No acute signs of psychosis. Cognitively is at baseline with no gross deficits. Judgment is intact Diagnostics Vital Signs (24Hr): Vital Signs - 24 hr 03/11/23 20:13 03/12/23 07:25 Temperature 98.5 F 98.1 F Pulse Rate 92 81 Respiratory Rate 16 14 Blood Pressure 125/58 L 111/54 L Pulse Oximetry 94 93 Oxygen Delivery Method Room Air Room Air BMI result Body Mass Index 40.8 Labs 03/06/23 10:21 Labs: Laboratory Results - last 48 hr 03/12/23 07:34 Absolute Neuts (auto) 5.4 Medications Medications Current Medications Acetaminophen (Acetaminophen 325 Mg Tablet) 650 mg PO Q6H PRN PRN Reason: Headache/Pain Mild Scale (1-3) Al Hydroxide/Mg Hydroxide (Magnesium Hydrox/Alum Hydrox 30 Ml Oral.Susp) 30 ml PO Q6H PRN PRN Reason: Heartburn/Nausea Albuterol Sulfate (Albuterol Sulfate 90 Mcg 8 Gm Inhaler) 2 puff INHALE RQ6H PRN PRN Reason: Shortness of Breath Atorvastatin Calcium (Atorvastatin Calcium 10 Mg Tablet) 10 mg PO BEDTIME [facility] Last Admin: 03/11/23 19:09 Dose: 10 mg Clozapine (Clozapine 25 Mg Tablet) 50 mg PO DAILY [facility] Last Admin: 03/12/23 08:54 Dose: 50 mg Clozapine 200 mg/ Clozapine 25 (mg) 225 mg PO BEDTIME [facility] Last Admin: 03/11/23 19:08 Dose: 225 mg Cyproheptadine HCl (Cyproheptadine Hcl 4 Mg Tablet) 8 mg PO BEDTIME [facility] Last Admin: 03/11/23 19:09 Dose: 8 mg Docusate Sodium (Docusate Sodium 100 Mg Capsule) 100 mg PO BID [facility] Last Admin: 03/12/23 08:55 Dose: 100 mg Escitalopram Oxalate (Escitalopram Oxalate 10 Mg Tablet) 10 mg PO DAILY [facility] Last Admin: 03/12/23 08:54 Dose: 10 mg Hydroxyzine HCl (Hydroxyzine Hcl 25 Mg Tablet) 25 mg PO Q6H PRN PRN Reason: Anxiety Last Admin: 03/07/23 16:06 Dose: 25 mg Hydroxyzine HCl (Hydroxyzine Hcl 50 Mg Tablet) 50 mg PO Q12H PRN PRN Reason: Anxiety Last Admin: 03/11/23 15:51 Dose: 50 mg Ibuprofen (Ibuprofen 400 Mg Tablet) 400 mg PO Q6H PRN PRN Reason: Pain, Moderate(Pain Scale 4-6) Last Admin: 03/07/23 20:42 Dose: 400 mg Levothyroxine Sodium (Levothyroxine Sodium 100 Mcg Tablet) 100 mcg PO DAILY@0600 [facility] Last Admin: 03/12/23 06:18 Dose: 100 mcg Loratadine (Loratadine 10 Mg Tablet) 10 mg PO DAILY [facility] Last Admin: 03/12/23 08:54 Dose: 10 mg Magnesium Hydroxide (Milk Of Magnesia 30 Ml Oral.Susp) 30 ml PO DAILY PRN PRN Reason: Constipation Melatonin (Melatonin 3 Mg Tablet) 6 mg PO BEDTIME PRN PRN Reason: Sleep Last Admin: 03/10/23 20:18 Dose: 6 mg Omeprazole (Omeprazole 20 Mg Capsule.Dr) 20 mg PO DAILY@0630 [facility] Last Admin: 03/12/23 08:54 Dose: 20 mg Polyethylene Glycol (Polyethylene Glycol 3350 17 Gm Powd.Pack) 17 gm PO DAILY [facility] Last Admin: 03/12/23 08:58 Dose: Not Given Prazosin HCl (Prazosin Hcl 1 Mg Capsule) 4 mg PO BEDTIME [facility] Last Admin: 03/11/23 19:08 Dose: 4 mg Prazosin HCl (Prazosin Hcl 5 Mg Capsule) 5 mg PO BEDTIME [facility] Last Admin: 03/11/23 19:07 Dose: 5 mg Quetiapine Fumarate (Quetiapine Fumarate 50 Mg Tablet) 50 mg PO TID PRN PRN Reason: anxiety Last Admin: 03/10/23 15:20 Dose: 50 mg Quetiapine Fumarate (Quetiapine Fumarate 200 Mg Tablet) 200 mg PO BEDTIME [facility] Last Admin: 03/11/23 19:08 Dose: 200 mg Quetiapine Fumarate (Quetiapine Fumarate 50 Mg Tablet) 50 mg PO BID@0800,1400 [facility] Last Admin: 03/12/23 08:54 Dose: 50 mg Quetiapine Fumarate (Quetiapine Fumarate 100 Mg Tablet) 100 mg PO Q6H PRN PRN Reason: severe anxiety Last Admin: 03/12/23 10:14 Dose: 100 mg Trazodone HCl (Trazodone Hcl 50 Mg Tablet) 50 mg PO BEDTIME MRX1 PRN PRN Reason: Insomnia Vitamin D (Cholecalciferol (Vitamin D3) 25 Mcg Tablet) 50 mcg PO DAILY [facility] Last Admin: 03/12/23 08:53 Dose: 50 mcg Allergies Allergies Allergy/AdvReac Type Severity Reaction Status Date / Time clindamycin [CLINDAMYCIN] Allergy Unknown UNKNOWN Verified 06/28/21 05:57 codeine [CODEINE] Allergy Unknown UNKNOWN Verified 06/28/21 05:57 erythromycin base Allergy Unknown UNKNOWN Verified 06/28/21 05:57 [ERYTHROMYCIN BASE] Macrolide Antibiotics Allergy Unknown UNKNOWN Verified 06/28/21 05:57 [MACROLIDE ANTIBIOTICS] meperidine [From DEMEROL] Allergy Unknown UNKNOWN Verified 06/28/21 05:57 Penicillins [PENICILLINS] Allergy Unknown UNKNOWN Verified 06/28/21 05:57 Sulfa (Sulfonamide Allergy Unknown UNKNOWN Verified 06/28/21 05:57 Antibiotics) [SULFA (SULFONAMIDE ANTIBIOTICS)] Assessment & Plan Assessment & Plan (1) PTSD (post-traumatic stress disorder): Status: Acute Code(s): F43.10 - Post-traumatic stress disorder, unspecified (2) Depression: Status: Acute Code(s): F32.A - Depression, unspecified Plan presents with history of severe PTSD and depression and with that self injuries behavior, suicidality and suicide attempts. Currently in stable residential living environment. Main stressor appears to be the 1 year anniversary of her grandmother's passing. Is on clozapine and Seroquel for depression, PTSD and suicidality. May consider adjusting clozapine dose, while lowering Seroquel dose. Otherwise adjust to the unit and milieu. 03/06/23: We discussed increasing total clozapine dose from 250 mg up to 275 mg, while lowering total Seroquel dose from 400 mg down to 350 mg total i.e. Clozapine 50 mg morning, 225 mg at bedtime, Seroquel bedtime dose will remain 200 mg and daytime doses will be lowered from 100 mg twice daily down to 75 mg twice daily. 03/07: calm, cooperative. endorsing SI, says she will let MD know when she is feeling ready for discharge. discuss chaotic environment at her residential, where a certain violent peer seems to be disrupting the milieu. 03/08: panic attach last night. add seroquel 100 mg PRNs for severe anxiety. otherwise continue current mgmt. +SIBI. 03/09: episode of SIBI and nearly SIB last night, RN intervened after roommate alerted staff. otherwise no notable events or behaviors. continue current mgmt. 03/10: c/o nightmares, agrees to increase prazosin to 9 QHS. otherwise continue current mgmt. 03/11: continue current mgmt. intermittent episodes of SIBI and SI, has not harmed herself on unit. practicing coping skills. 03/12/23: Continue current regimen and plans Reason for continued inpatient stay Substantial Risk for: med/psych decompensation Time Spent With Patient Time: Total time managing care of this patient today ____ minutes.
[2023-03-12] MEDS: hydrOXYzine HCL 50 MG TABLET PO (13:46)
[2023-03-12 18:00] VITALS: BP 117/72; PULSE 96; RESP 18; TEMP 36.2; O2SAT 95
[2023-03-12] MEDS: Prazosin HCL 1 MG CAPSULE 4 MG PO (20:22)
[2023-03-12] MEDS: QUEtiapine Fumarate 200 MG TABLET PO (20:23)
[2023-03-12] MEDS: Prazosin HCL 5 MG CAPSULE PO (20:23)
[2023-03-12] MEDS: hydrOXYzine HCL 25 MG TABLET PO (20:23)
[2023-03-12] MEDS: cloZAPine 200 MG, cloZAPine 25 MG 225 MG PO (20:23)
[2023-03-12] MEDS: Cyproheptadine HCl 4 MG TABLET 8 MG PO (20:24)
[2023-03-12] MEDS: Atorvastatin Calcium 10 MG TABLET PO (20:24)
[2023-03-13] MEDS: Levothyroxine Sodium 100 MCG TABLET PO (06:22)
[2023-03-13] MEDS: Omeprazole 20 MG CAPSULE.DR PO (06:51)
[2023-03-13 07:50] VITALS: BP 120/64; PULSE 80; RESP 12; TEMP 36.4; O2SAT 91
[2023-03-13] MEDS: Cholecalciferol (Vitamin D3) 25 MCG TABLET 50 MCG PO (09:05)
[2023-03-13] MEDS: cloZAPine 25 MG TABLET 50 MG PO (09:05)
[2023-03-13] MEDS: Docusate Sodium 100 MG CAPSULE PO ×2 (09:05→18:52)
[2023-03-13] MEDS: Loratadine 10 MG TABLET PO (09:05)
[2023-03-13] MEDS: Escitalopram Oxalate 10 MG TABLET PO (09:06)
[2023-03-13] MEDS: QUEtiapine Fumarate 50 MG TABLET PO ×3 (09:06→18:19)
--- NOTE | 2023-03-13 11:11 | P.PNPSI_ITS ---
Subjective Subjective Date of Service: 03/13/23 Reason For Visit: PTSD, Depressio, Panic Subjective Notes: Conditional Voluntary Interim History: Patient was seen and discussed in rounds today. Records and plans were reviewed. She had a better day yesterday with no panic attacks. She asks questions about to her medications which we discussed. No complaints or side effects. No self-destructive behaviors. She admits to some SI still but denies any plans or danger. No changes were Medication Compliance: Yes Side effects from medications: No Attending Groups: Yes Review of Systems Review of Systems Yes all other systems are reviewed and are negative Mental Status Exam Mental Status Exam Narrative: In today's visit she is alert, oriented and pleasant. Normal speech. She has a gaze palsy. She denies any active suicidal ideations. She has urges to hurt herself but has been able to control. No acute signs of psychosis. Cognitively is at baseline with no gross deficits. Judgment is intact Diagnostics Vital Signs (24Hr): Vital Signs - 24 hr 03/12/23 18:00 03/13/23 07:50 Temperature 97.2 F 97.5 F Pulse Rate 96 80 Respiratory Rate 18 12 Blood Pressure 117/72 120/64 Pulse Oximetry 95 91 L Oxygen Delivery Method Room Air Room Air BMI result Body Mass Index 40.8 Labs 03/06/23 10:21 Labs: Laboratory Results - last 48 hr 03/12/23 07:34 Absolute Neuts (auto) 5.4 Medications Medications Current Medications Acetaminophen (Acetaminophen 325 Mg Tablet) 650 mg PO Q6H PRN PRN Reason: Headache/Pain Mild Scale (1-3) Al Hydroxide/Mg Hydroxide (Magnesium Hydrox/Alum Hydrox 30 Ml Oral.Susp) 30 ml PO Q6H PRN PRN Reason: Heartburn/Nausea Albuterol Sulfate (Albuterol Sulfate 90 Mcg 8 Gm Inhaler) 2 puff INHALE RQ6H PRN PRN Reason: Shortness of Breath Atorvastatin Calcium (Atorvastatin Calcium 10 Mg Tablet) 10 mg PO BEDTIME [facility] Last Admin: 03/12/23 20:24 Dose: 10 mg Clozapine (Clozapine 25 Mg Tablet) 50 mg PO DAILY [facility] Last Admin: 03/13/23 09:05 Dose: 50 mg Clozapine 200 mg/ Clozapine 25 (mg) 225 mg PO BEDTIME [facility] Last Admin: 03/12/23 20:23 Dose: 225 mg Cyproheptadine HCl (Cyproheptadine Hcl 4 Mg Tablet) 8 mg PO BEDTIME [facility] Last Admin: 03/12/23 20:24 Dose: 8 mg Docusate Sodium (Docusate Sodium 100 Mg Capsule) 100 mg PO BID [facility] Last Admin: 03/13/23 09:05 Dose: 100 mg Escitalopram Oxalate (Escitalopram Oxalate 10 Mg Tablet) 10 mg PO DAILY [facility] Last Admin: 03/13/23 09:06 Dose: 10 mg Hydroxyzine HCl (Hydroxyzine Hcl 25 Mg Tablet) 25 mg PO Q6H PRN PRN Reason: Anxiety Last Admin: 03/12/23 20:23 Dose: 25 mg Hydroxyzine HCl (Hydroxyzine Hcl 50 Mg Tablet) 50 mg PO Q12H PRN PRN Reason: Anxiety Last Admin: 03/12/23 13:46 Dose: 50 mg Ibuprofen (Ibuprofen 400 Mg Tablet) 400 mg PO Q6H PRN PRN Reason: Pain, Moderate(Pain Scale 4-6) Last Admin: 03/07/23 20:42 Dose: 400 mg Levothyroxine Sodium (Levothyroxine Sodium 100 Mcg Tablet) 100 mcg PO DAILY@0600 [facility] Last Admin: 03/13/23 06:22 Dose: 100 mcg Loratadine (Loratadine 10 Mg Tablet) 10 mg PO DAILY [facility] Last Admin: 03/13/23 09:05 Dose: 10 mg Magnesium Hydroxide (Milk Of Magnesia 30 Ml Oral.Susp) 30 ml PO DAILY PRN PRN Reason: Constipation Melatonin (Melatonin 3 Mg Tablet) 6 mg PO BEDTIME PRN PRN Reason: Sleep Last Admin: 03/10/23 20:18 Dose: 6 mg Omeprazole (Omeprazole 20 Mg Capsule.Dr) 20 mg PO DAILY@0630 [facility] Last Admin: 03/13/23 06:51 Dose: 20 mg Polyethylene Glycol (Polyethylene Glycol 3350 17 Gm Powd.Pack) 17 gm PO DAILY [facility] Last Admin: 03/13/23 09:07 Dose: Not Given Prazosin HCl (Prazosin Hcl 1 Mg Capsule) 4 mg PO BEDTIME [facility] Last Admin: 03/12/23 20:22 Dose: 4 mg Prazosin HCl (Prazosin Hcl 5 Mg Capsule) 5 mg PO BEDTIME [facility] Last Admin: 03/12/23 20:23 Dose: 5 mg Quetiapine Fumarate (Quetiapine Fumarate 50 Mg Tablet) 50 mg PO TID PRN PRN Reason: anxiety Last Admin: 03/10/23 15:20 Dose: 50 mg Quetiapine Fumarate (Quetiapine Fumarate 200 Mg Tablet) 200 mg PO BEDTIME [facility] Last Admin: 03/12/23 20:23 Dose: 200 mg Quetiapine Fumarate (Quetiapine Fumarate 50 Mg Tablet) 50 mg PO BID@0800,1400 [facility] Last Admin: 03/13/23 09:06 Dose: 50 mg Quetiapine Fumarate (Quetiapine Fumarate 100 Mg Tablet) 100 mg PO Q6H PRN PRN Reason: severe anxiety Last Admin: 03/12/23 10:14 Dose: 100 mg Trazodone HCl (Trazodone Hcl 50 Mg Tablet) 50 mg PO BEDTIME MRX1 PRN PRN Reason: Insomnia Vitamin D (Cholecalciferol (Vitamin D3) 25 Mcg Tablet) 50 mcg PO DAILY [facility] Last Admin: 03/13/23 09:05 Dose: 50 mcg Allergies Allergies Allergy/AdvReac Type Severity Reaction Status Date / Time clindamycin [CLINDAMYCIN] Allergy Unknown UNKNOWN Verified 06/28/21 05:57 codeine [CODEINE] Allergy Unknown UNKNOWN Verified 06/28/21 05:57 erythromycin base Allergy Unknown UNKNOWN Verified 06/28/21 05:57 [ERYTHROMYCIN BASE] Macrolide Antibiotics Allergy Unknown UNKNOWN Verified 06/28/21 05:57 [MACROLIDE ANTIBIOTICS] meperidine [From DEMEROL] Allergy Unknown UNKNOWN Verified 06/28/21 05:57 Penicillins [PENICILLINS] Allergy Unknown UNKNOWN Verified 06/28/21 05:57 Sulfa (Sulfonamide Allergy Unknown UNKNOWN Verified 06/28/21 05:57 Antibiotics) [SULFA (SULFONAMIDE ANTIBIOTICS)] Assessment & Plan Assessment & Plan (1) PTSD (post-traumatic stress disorder): Status: Acute Code(s): F43.10 - Post-traumatic stress disorder, unspecified (2) Depression: Status: Acute Code(s): F32.A - Depression, unspecified Plan presents with history of severe PTSD and depression and with that self injuries behavior, suicidality and suicide attempts. Currently in stable assisted living environment. Main stressor appears to be the 1 year anniversary of her grandmother's passing. Is on clozapine and Seroquel for depression, PTSD and suicidality. May consider adjusting clozapine dose, while lowering Seroquel dose. Otherwise adjust to the unit and milieu. 03/06/23: We discussed increasing total clozapine dose from 250 mg up to 275 mg, while lowering total Seroquel dose from 400 mg down to 350 mg total i.e. Clozapine 50 mg morning, 225 mg at bedtime, Seroquel bedtime dose will remain 200 mg and daytime doses will be lowered from 100 mg twice daily down to 75 mg twice daily. 03/07: calm, cooperative. endorsing SI, says she will let MD know when she is feeling ready for discharge. discuss chaotic environment at her assisted, where a certain violent peer seems to be disrupting the milieu. 03/08: panic attach last night. add seroquel 100 mg PRNs for severe anxiety. otherwise continue current mgmt. +SIBI. 03/09: episode of SIBI and nearly SIB last night, RN intervened after roommate alerted staff. otherwise no notable events or behaviors. continue current mgmt. 03/10: c/o nightmares, agrees to increase prazosin to 9 QHS. otherwise continue current mgmt. 03/11: continue current mgmt. intermittent episodes of SIBI and SI, has not harmed herself on unit. practicing coping skills. 03/12/23: Continue current regimen and plans 03/13/2023: Continue current regimen and plans Patient educated on: medication risk/benefits Reason for continued inpatient stay Substantial Risk for: harm to self, inability to function and med/psych decompensation Time Spent With Patient Time: Total time managing care of this patient today ____ minutes.
[2023-03-13] MEDS: QUEtiapine Fumarate 100 MG TABLET PO ×2 (14:32→21:26)
[2023-03-13] MEDS: hydrOXYzine HCL 50 MG TABLET PO (16:07)
[2023-03-13 18:49] VITALS: BP 107/64; PULSE 91; RESP 16; O2SAT 98
[2023-03-13] MEDS: cloZAPine 200 MG, cloZAPine 25 MG 225 MG PO (18:51)
[2023-03-13] MEDS: Atorvastatin Calcium 10 MG TABLET PO (18:52)
[2023-03-13] MEDS: QUEtiapine Fumarate 200 MG TABLET PO (18:52)
[2023-03-13] MEDS: Prazosin HCL 1 MG CAPSULE 4 MG PO (18:52)
[2023-03-13] MEDS: Prazosin HCL 5 MG CAPSULE PO (18:52)
[2023-03-13] MEDS: Cyproheptadine HCl 4 MG TABLET 8 MG PO (19:00)
[2023-03-13] MEDS: Acetaminophen 325 MG TABLET 650 MG PO (20:37)
[2023-03-13] MEDS: Ibuprofen 400 MG TABLET PO (21:27)
[2023-03-14] MEDS: Levothyroxine Sodium 100 MCG TABLET PO (07:05)
[2023-03-14 09:13] VITALS: BP 117/68; PULSE 93; RESP 18; TEMP 36.7; O2SAT 95
[2023-03-14] MEDS: polyethylene glycoL 3350 17 GM POWD.PACK PO (09:15)
[2023-03-14] MEDS: cloZAPine 25 MG TABLET 50 MG PO (09:15)
[2023-03-14] MEDS: QUEtiapine Fumarate 50 MG TABLET PO ×3 (09:16→17:01)
[2023-03-14] MEDS: Escitalopram Oxalate 10 MG TABLET PO (09:16)
[2023-03-14] MEDS: Loratadine 10 MG TABLET PO (09:16)
[2023-03-14] MEDS: Cholecalciferol (Vitamin D3) 25 MCG TABLET 50 MCG PO (09:16)
[2023-03-14] MEDS: Omeprazole 20 MG CAPSULE.DR PO (09:16)
[2023-03-14] MEDS: Docusate Sodium 100 MG CAPSULE PO ×2 (09:16→19:43)
[2023-03-14] MEDS: QUEtiapine Fumarate 100 MG TABLET PO (14:00)
[2023-03-14] MEDS: hydrOXYzine HCL 50 MG TABLET PO (14:01)
--- NOTE | 2023-03-14 14:23 | HO.PSYCHPN ---
Subjective Subjective Date of Service: 03/14/23 Reason For Visit: PTSD, Depressio, Panic Interim History: met with patient; discussed with team; reviewed chart very superficially scratched arm last night pt reports she is having panic attacks and she is just sick of them...says it's worse than ever before. She says she does not want to self harm, wants to stay safe and asks for any help available. Licensed Clinician discussed Clonidine, risks/side-effects which she understood and wants to try. Othwerise, trying to distract self with coloring Mental Status Exam Mental Status Exam Narrative: In today's visit she is alert, oriented and pleasant. Normal speech. She has a gaze palsy. She denies any active suicidal ideations but says she's having panic attacks; resisting urges to self harm; mood is anxious and congruent affect. Speech normal rate, volume, prosody; Thought content on treatment, coping skills; No acute signs of psychosis. Judgment/insight impaired but seems to be improving Diagnostics Vital Signs (24Hr): Vital Signs - 24 hr 03/13/23 18:49 03/14/23 09:13 Temperature 98.0 F Pulse Rate 91 93 Respiratory Rate 16 18 Blood Pressure 107/64 117/68 Pulse Oximetry 98 95 Oxygen Delivery Method Room Air Room Air BMI result Body Mass Index 40.8 Labs 03/06/23 10:21 Medications Medications Current Medications Acetaminophen (Acetaminophen 325 Mg Tablet) 650 mg PO Q6H PRN PRN Reason: Headache/Pain Mild Scale (1-3) Last Admin: 03/13/23 20:37 Dose: 650 mg Al Hydroxide/Mg Hydroxide (Magnesium Hydrox/Alum Hydrox 30 Ml Oral.Susp) 30 ml PO Q6H PRN PRN Reason: Heartburn/Nausea Albuterol Sulfate (Albuterol Sulfate 90 Mcg 8 Gm Inhaler) 2 puff INHALE RQ6H PRN PRN Reason: Shortness of Breath Atorvastatin Calcium (Atorvastatin Calcium 10 Mg Tablet) 10 mg PO BEDTIME [facility] Last Admin: 03/13/23 18:52 Dose: 10 mg Clozapine (Clozapine 25 Mg Tablet) 50 mg PO DAILY [facility] Last Admin: 03/14/23 09:15 Dose: 50 mg Clozapine 200 mg/ Clozapine 25 (mg) 225 mg PO BEDTIME [facility] Last Admin: 03/13/23 18:51 Dose: 225 mg Cyproheptadine HCl (Cyproheptadine Hcl 4 Mg Tablet) 8 mg PO BEDTIME [facility] Last Admin: 03/13/23 19:00 Dose: 8 mg Docusate Sodium (Docusate Sodium 100 Mg Capsule) 100 mg PO BID [facility] Last Admin: 03/14/23 09:16 Dose: 100 mg Escitalopram Oxalate (Escitalopram Oxalate 10 Mg Tablet) 10 mg PO DAILY [facility] Last Admin: 03/14/23 09:16 Dose: 10 mg Hydroxyzine HCl (Hydroxyzine Hcl 25 Mg Tablet) 25 mg PO Q6H PRN PRN Reason: Anxiety Last Admin: 03/12/23 20:23 Dose: 25 mg Hydroxyzine HCl (Hydroxyzine Hcl 50 Mg Tablet) 50 mg PO Q12H PRN PRN Reason: Anxiety Last Admin: 03/14/23 14:01 Dose: 50 mg Ibuprofen (Ibuprofen 400 Mg Tablet) 400 mg PO Q6H PRN PRN Reason: Pain, Moderate(Pain Scale 4-6) Last Admin: 03/13/23 21:27 Dose: 400 mg Levothyroxine Sodium (Levothyroxine Sodium 100 Mcg Tablet) 100 mcg PO DAILY@0600 [facility] Last Admin: 03/14/23 07:05 Dose: 100 mcg Loratadine (Loratadine 10 Mg Tablet) 10 mg PO DAILY [facility] Last Admin: 03/14/23 09:16 Dose: 10 mg Magnesium Hydroxide (Milk Of Magnesia 30 Ml Oral.Susp) 30 ml PO DAILY PRN PRN Reason: Constipation Melatonin (Melatonin 3 Mg Tablet) 6 mg PO BEDTIME PRN PRN Reason: Sleep Last Admin: 03/10/23 20:18 Dose: 6 mg Omeprazole (Omeprazole 20 Mg Capsule.Dr) 20 mg PO DAILY@0630 [facility] Last Admin: 03/14/23 09:16 Dose: 20 mg Polyethylene Glycol (Polyethylene Glycol 3350 17 Gm Powd.Pack) 17 gm PO DAILY [facility] Last Admin: 03/14/23 09:15 Dose: 17 gm Prazosin HCl (Prazosin Hcl 1 Mg Capsule) 4 mg PO BEDTIME [facility] Last Admin: 03/13/23 18:52 Dose: 4 mg Prazosin HCl (Prazosin Hcl 5 Mg Capsule) 5 mg PO BEDTIME [facility] Last Admin: 03/13/23 18:52 Dose: 5 mg Quetiapine Fumarate (Quetiapine Fumarate 50 Mg Tablet) 50 mg PO TID PRN PRN Reason: anxiety Last Admin: 03/13/23 18:19 Dose: 50 mg Quetiapine Fumarate (Quetiapine Fumarate 200 Mg Tablet) 200 mg PO BEDTIME [facility] Last Admin: 03/13/23 18:52 Dose: 200 mg Quetiapine Fumarate (Quetiapine Fumarate 50 Mg Tablet) 50 mg PO BID@0800,1400 [facility] Last Admin: 03/14/23 13:03 Dose: 50 mg Quetiapine Fumarate (Quetiapine Fumarate 100 Mg Tablet) 100 mg PO Q6H PRN PRN Reason: severe anxiety Last Admin: 03/14/23 14:00 Dose: 100 mg Trazodone HCl (Trazodone Hcl 50 Mg Tablet) 50 mg PO BEDTIME MRX1 PRN PRN Reason: Insomnia Vitamin D (Cholecalciferol (Vitamin D3) 25 Mcg Tablet) 50 mcg PO DAILY [facility] Last Admin: 03/14/23 09:16 Dose: 50 mcg Allergies Allergies Allergy/AdvReac Type Severity Reaction Status Date / Time clindamycin [CLINDAMYCIN] Allergy Unknown UNKNOWN Verified 06/28/21 05:57 codeine [CODEINE] Allergy Unknown UNKNOWN Verified 06/28/21 05:57 erythromycin base Allergy Unknown UNKNOWN Verified 06/28/21 05:57 [ERYTHROMYCIN BASE] Macrolide Antibiotics Allergy Unknown UNKNOWN Verified 06/28/21 05:57 [MACROLIDE ANTIBIOTICS] meperidine [From DEMEROL] Allergy Unknown UNKNOWN Verified 06/28/21 05:57 Penicillins [PENICILLINS] Allergy Unknown UNKNOWN Verified 06/28/21 05:57 Sulfa (Sulfonamide Allergy Unknown UNKNOWN Verified 06/28/21 05:57 Antibiotics) [SULFA (SULFONAMIDE ANTIBIOTICS)] Assessment & Plan Assessment & Plan (1) PTSD (post-traumatic stress disorder): Status: Acute Code(s): F43.10 - Post-traumatic stress disorder, unspecified (2) Depression: Status: Acute Code(s): F32.A - Depression, unspecified Plan presents with history of severe PTSD and depression and with that self injuries behavior, suicidality and suicide attempts. Currently in stable halfway living environment. Main stressor appears to be the 1 year anniversary of her grandmother's passing. Is on clozapine and Seroquel for depression, PTSD and suicidality. May consider adjusting clozapine dose, while lowering Seroquel dose. Otherwise adjust to the unit and milieu. 03/06/23: We discussed increasing total clozapine dose from 250 mg up to 275 mg, while lowering total Seroquel dose from 400 mg down to 350 mg total i.e. Clozapine 50 mg morning, 225 mg at bedtime, Seroquel bedtime dose will remain 200 mg and daytime doses will be lowered from 100 mg twice daily down to 75 mg twice daily. 03/07: calm, cooperative. endorsing SI, says she will let MD know when she is feeling ready for discharge. discuss chaotic environment at her halfway, where a certain violent peer seems to be disrupting the milieu. 03/08: panic attach last night. add seroquel 100 mg PRNs for severe anxiety. otherwise continue current mgmt. +SIBI. 03/09: episode of SIBI and nearly SIB last night, RN intervened after roommate alerted staff. otherwise no notable events or behaviors. continue current mgmt. 03/10: c/o nightmares, agrees to increase prazosin to 9 QHS. otherwise continue current mgmt. 03/11: continue current mgmt. intermittent episodes of SIBI and SI, has not harmed herself on unit. practicing coping skills. 03/12/23: Continue current regimen and plans 03/13/2023: Continue current regimen and plans 03/14 start Clonidine 0.1mg BID@0900,1400 for daytime anxiety/panic attacks(BP/HR wnl; discussed risks/sideeffects) Patient educated on: diagnosis, medication risk/benefits and therapeutic strategies Informed Consent: understands Reason for continued inpatient stay Substantial Risk for: rapid decompensation Time Spent With Patient Time: Total time managing care of this patient today ____ minutes.
[2023-03-14 14:57] VITALS: BP 135/88; PULSE 101
[2023-03-14] MEDS: hydrOXYzine HCL 25 MG TABLET PO (14:58)
[2023-03-14] MEDS: cloNIDine HCL 0.1 MG TABLET PO (14:59)
[2023-03-14] MEDS: Ibuprofen 400 MG TABLET PO (15:18)
--- NOTE | 2023-03-14 15:22 | P.PNPSI_ITS ---
Subjective Subjective Reason For Visit: PTSD, Depressio, Panic Diagnostics Vital Signs (24Hr): Vital Signs - 24 hr 03/13/23 18:49 03/14/23 09:13 03/14/23 14:57 Temperature 98.0 F Pulse Rate 91 93 101 H Respiratory Rate 16 18 Blood Pressure 107/64 117/68 135/88 Pulse Oximetry 98 95 Oxygen Delivery Method Room Air Room Air BMI result Body Mass Index 40.8 Labs 03/06/23 10:21 Medications Medications Current Medications Acetaminophen (Acetaminophen 325 Mg Tablet) 650 mg PO Q6H PRN PRN Reason: Headache/Pain Mild Scale (1-3) Last Admin: 03/13/23 20:37 Dose: 650 mg Al Hydroxide/Mg Hydroxide (Magnesium Hydrox/Alum Hydrox 30 Ml Oral.Susp) 30 ml PO Q6H PRN PRN Reason: Heartburn/Nausea Albuterol Sulfate (Albuterol Sulfate 90 Mcg 8 Gm Inhaler) 2 puff INHALE RQ6H PRN PRN Reason: Shortness of Breath Atorvastatin Calcium (Atorvastatin Calcium 10 Mg Tablet) 10 mg PO BEDTIME [facility] Last Admin: 03/13/23 18:52 Dose: 10 mg Clonidine HCl (Clonidine Hcl 0.1 Mg Tablet) 0.1 mg PO BID@0900,1300 [facility]; Protocol Clozapine (Clozapine 25 Mg Tablet) 50 mg PO DAILY [facility] Last Admin: 03/14/23 09:15 Dose: 50 mg Clozapine 200 mg/ Clozapine 25 (mg) 225 mg PO BEDTIME [facility] Last Admin: 03/13/23 18:51 Dose: 225 mg Cyproheptadine HCl (Cyproheptadine Hcl 4 Mg Tablet) 8 mg PO BEDTIME [facility] Last Admin: 03/13/23 19:00 Dose: 8 mg Docusate Sodium (Docusate Sodium 100 Mg Capsule) 100 mg PO BID [facility] Last Admin: 03/14/23 09:16 Dose: 100 mg Escitalopram Oxalate (Escitalopram Oxalate 10 Mg Tablet) 10 mg PO DAILY [facility] Last Admin: 03/14/23 09:16 Dose: 10 mg Hydroxyzine HCl (Hydroxyzine Hcl 25 Mg Tablet) 25 mg PO Q6H PRN PRN Reason: Anxiety Last Admin: 03/14/23 14:58 Dose: 25 mg Hydroxyzine HCl (Hydroxyzine Hcl 50 Mg Tablet) 50 mg PO Q12H PRN PRN Reason: Anxiety Last Admin: 03/14/23 14:01 Dose: 50 mg Ibuprofen (Ibuprofen 400 Mg Tablet) 400 mg PO Q6H PRN PRN Reason: Pain, Moderate(Pain Scale 4-6) Last Admin: 03/14/23 15:18 Dose: 400 mg Levothyroxine Sodium (Levothyroxine Sodium 100 Mcg Tablet) 100 mcg PO DAILY@0600 [facility] Last Admin: 03/14/23 07:05 Dose: 100 mcg Loratadine (Loratadine 10 Mg Tablet) 10 mg PO DAILY [facility] Last Admin: 03/14/23 09:16 Dose: 10 mg Magnesium Hydroxide (Milk Of Magnesia 30 Ml Oral.Susp) 30 ml PO DAILY PRN PRN Reason: Constipation Melatonin (Melatonin 3 Mg Tablet) 6 mg PO BEDTIME PRN PRN Reason: Sleep Last Admin: 03/10/23 20:18 Dose: 6 mg Omeprazole (Omeprazole 20 Mg Capsule.Dr) 20 mg PO DAILY@0630 [facility] Last Admin: 03/14/23 09:16 Dose: 20 mg Polyethylene Glycol (Polyethylene Glycol 3350 17 Gm Powd.Pack) 17 gm PO DAILY [facility] Last Admin: 03/14/23 09:15 Dose: 17 gm Prazosin HCl (Prazosin Hcl 1 Mg Capsule) 4 mg PO BEDTIME [facility] Last Admin: 03/13/23 18:52 Dose: 4 mg Prazosin HCl (Prazosin Hcl 5 Mg Capsule) 5 mg PO BEDTIME [facility] Last Admin: 03/13/23 18:52 Dose: 5 mg Quetiapine Fumarate (Quetiapine Fumarate 50 Mg Tablet) 50 mg PO TID PRN PRN Reason: anxiety Last Admin: 03/13/23 18:19 Dose: 50 mg Quetiapine Fumarate (Quetiapine Fumarate 200 Mg Tablet) 200 mg PO BEDTIME [facility] Last Admin: 03/13/23 18:52 Dose: 200 mg Quetiapine Fumarate (Quetiapine Fumarate 50 Mg Tablet) 50 mg PO BID@0800,1400 [facility] Last Admin: 03/14/23 13:03 Dose: 50 mg Quetiapine Fumarate (Quetiapine Fumarate 100 Mg Tablet) 100 mg PO Q6H PRN PRN Reason: severe anxiety Last Admin: 03/14/23 14:00 Dose: 100 mg Trazodone HCl (Trazodone Hcl 50 Mg Tablet) 50 mg PO BEDTIME MRX1 PRN PRN Reason: Insomnia Vitamin D (Cholecalciferol (Vitamin D3) 25 Mcg Tablet) 50 mcg PO DAILY [facility] Last Admin: 03/14/23 09:16 Dose: 50 mcg Allergies Allergies Allergy/AdvReac Type Severity Reaction Status Date / Time clindamycin [CLINDAMYCIN] Allergy Unknown UNKNOWN Verified 06/28/21 05:57 codeine [CODEINE] Allergy Unknown UNKNOWN Verified 06/28/21 05:57 erythromycin base Allergy Unknown UNKNOWN Verified 06/28/21 05:57 [ERYTHROMYCIN BASE] Macrolide Antibiotics Allergy Unknown UNKNOWN Verified 06/28/21 05:57 [MACROLIDE ANTIBIOTICS] meperidine [From DEMEROL] Allergy Unknown UNKNOWN Verified 06/28/21 05:57 Penicillins [PENICILLINS] Allergy Unknown UNKNOWN Verified 06/28/21 05:57 Sulfa (Sulfonamide Allergy Unknown UNKNOWN Verified 06/28/21 05:57 Antibiotics) [SULFA (SULFONAMIDE ANTIBIOTICS)] Assessment & Plan Assessment & Plan (1) PTSD (post-traumatic stress disorder): Status: Acute Code(s): F43.10 - Post-traumatic stress disorder, unspecified (2) Depression: Status: Acute Code(s): F32.A - Depression, unspecified Plan presents with history of severe PTSD and depression and with that self injuries behavior, suicidality and suicide attempts. Currently in stable prison living environment. Main stressor appears to be the 1 year anniversary of her grandmother's passing. Is on clozapine and Seroquel for depression, PTSD and suicidality. May consider adjusting clozapine dose, while lowering Seroquel dose. Otherwise adjust to the unit and milieu. 03/06/23: We discussed increasing total clozapine dose from 250 mg up to 275 mg, while lowering total Seroquel dose from 400 mg down to 350 mg total i.e. Clozapine 50 mg morning, 225 mg at bedtime, Seroquel bedtime dose will remain 200 mg and daytime doses will be lowered from 100 mg twice daily down to 75 mg twice daily. 03/07: calm, cooperative. endorsing SI, says she will let MD know when she is feeling ready for discharge. discuss chaotic environment at her prison, where a certain violent peer seems to be disrupting the milieu. 03/08: panic attach last night. add seroquel 100 mg PRNs for severe anxiety. otherwise continue current mgmt. +SIBI. 03/09: episode of SIBI and nearly SIB last night, RN intervened after roommate alerted staff. otherwise no notable events or behaviors. continue current mgmt. 03/10: c/o nightmares, agrees to increase prazosin to 9 QHS. otherwise continue current mgmt. 03/11: continue current mgmt. intermittent episodes of SIBI and SI, has not harmed herself on unit. practicing coping skills. 03/12/23: Continue current regimen and plans 03/13/2023: Continue current regimen and plans 03/14 start Clonidine 0.1mg BID@0900,1400 for daytime anxiety/panic attacks(BP/HR wnl; discussed risks/sideeffects) Time Spent With Patient Time: Total time managing care of this patient today ____ minutes.
[2023-03-14] MEDS: Acetaminophen 325 MG TABLET 650 MG PO (17:29)
--- NOTE | 2023-03-14 18:37 | PC.NURSE ---
Dr. Foss authorized early administration of HS medication.
[2023-03-14 19:34] VITALS: BP 134/96; PULSE 93; RESP 18; TEMP 36.2; O2SAT 98
[2023-03-14] MEDS: Cyproheptadine HCl 4 MG TABLET 8 MG PO (19:43)
[2023-03-14] MEDS: traZODone HCL 50 MG TABLET PO (19:43)
[2023-03-14] MEDS: QUEtiapine Fumarate 200 MG TABLET PO (19:43)
[2023-03-14] MEDS: cloZAPine 200 MG, cloZAPine 25 MG 225 MG PO (19:43)
[2023-03-14] MEDS: Melatonin 3 MG TABLET 6 MG PO (19:43)
[2023-03-14] MEDS: Atorvastatin Calcium 10 MG TABLET PO (19:44)
[2023-03-14] MEDS: Prazosin HCL 5 MG CAPSULE PO (19:45)
[2023-03-14] MEDS: Prazosin HCL 1 MG CAPSULE 4 MG PO (19:45)
[2023-03-15] MEDS: Levothyroxine Sodium 100 MCG TABLET PO (07:12)
[2023-03-15 07:35] VITALS: BP 136/72; PULSE 80; RESP 18; TEMP 36.4; O2SAT 99
[2023-03-15] MEDS: Omeprazole 20 MG CAPSULE.DR PO (07:39)
[2023-03-15] MEDS: hydrOXYzine HCL 50 MG TABLET PO (07:39)
[2023-03-15] MEDS: QUEtiapine Fumarate 100 MG TABLET PO (07:39)
[2023-03-15] MEDS: Escitalopram Oxalate 10 MG TABLET PO (08:15)
[2023-03-15] MEDS: Loratadine 10 MG TABLET PO (08:16)
[2023-03-15] MEDS: Cholecalciferol (Vitamin D3) 25 MCG TABLET 50 MCG PO (08:16)
[2023-03-15] MEDS: Docusate Sodium 100 MG CAPSULE PO ×2 (08:16→20:06)
[2023-03-15] MEDS: cloNIDine HCL 0.1 MG TABLET PO ×2 (08:16→13:13)
[2023-03-15] MEDS: cloZAPine 25 MG TABLET 50 MG PO (08:16)
[2023-03-15] MEDS: QUEtiapine Fumarate 50 MG TABLET PO ×3 (08:16→18:06)
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
[2023-03-15 13:10] VITALS: BP 155/61; PULSE 86
[2023-03-15 19:50] VITALS: BP 121/58; PULSE 68; RESP 15; TEMP 36.3; O2SAT 97
[2023-03-15] MEDS: Prazosin HCL 5 MG CAPSULE PO (20:06)
[2023-03-15] MEDS: traZODone HCL 50 MG TABLET PO (20:06)
[2023-03-15] MEDS: cloZAPine 200 MG, cloZAPine 25 MG 225 MG PO (20:07)
[2023-03-15] MEDS: Cyproheptadine HCl 4 MG TABLET 8 MG PO (20:07)
[2023-03-15] MEDS: QUEtiapine Fumarate 200 MG TABLET PO (20:08)
[2023-03-15] MEDS: Atorvastatin Calcium 10 MG TABLET PO (20:08)
[2023-03-15] MEDS: Prazosin HCL 1 MG CAPSULE 4 MG PO (20:08)
[2023-03-16] MEDS: Levothyroxine Sodium 100 MCG TABLET PO (06:45)
[2023-03-16 07:50] VITALS: BP 117/69; PULSE 80; TEMP 36.3; O2SAT 96
[2023-03-16] MEDS: Escitalopram Oxalate 10 MG TABLET PO (09:04)
[2023-03-16] MEDS: Cholecalciferol (Vitamin D3) 25 MCG TABLET 50 MCG PO (09:04)
[2023-03-16] MEDS: Omeprazole 20 MG CAPSULE.DR PO (09:05)
[2023-03-16] MEDS: cloZAPine 25 MG TABLET 50 MG PO (09:05)
[2023-03-16] MEDS: Docusate Sodium 100 MG CAPSULE PO (09:05)
[2023-03-16] MEDS: Loratadine 10 MG TABLET PO (09:05)
[2023-03-16] MEDS: cloNIDine HCL 0.1 MG TABLET PO ×2 (09:05→12:16)
[2023-03-16] MEDS: QUEtiapine Fumarate 50 MG TABLET PO ×2 (09:06→13:20)
[2023-03-16] MEDS: QUEtiapine Fumarate 100 MG TABLET PO (11:39)
[2023-03-16 12:11] VITALS: BP 133/70; PULSE 92
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
[2023-03-16] MEDS: hydrOXYzine HCL 50 MG TABLET PO (13:47)
== END 2023-03-16 15:50 | disposition home or self-care (01) | DRG 754 ==
PROVIDERS: Clinical Nurse Specialist Psychiatric/Mental Health, Adult; Admitting Provider Psychiatry & Neurology Psychiatry; PCP Nurse Practitioner Family; Visit Provider Psychiatry & Neurology Psychiatry
DX: F32.A Depression, unspecified (principal); R45.851 Suicidal ideations; E03.9 Hypothyroidism, unspecified; F43.12 Post-traumatic stress disorder, chronic; E78.5 Hyperlipidemia, unspecified; E66.01 Morbid (severe) obesity due to excess calories; Z68.41 Body mass index [BMI] 40.0-44.9, adult; J45.20 Mild intermittent asthma, uncomplicated; Z91.51 Personal history of suicidal behavior; Z91.52 Personal history of nonsuicidal self-harm; Z79.890 Hormone replacement therapy; Z79.899 Other long term (current) drug therapy
CPT/HCPCS: 36415; 80053; 80061; 82607; 82746; 83036; 83735; 84439; 84443; 85048

== ENCOUNTER → 2023-03-04 23:13 | Outpatient (BNV) | payer MEDICAID, SELFPAY | PROVIDERS: Admitting Provider Psychiatry & Neurology Psychiatry; PCP Nurse Practitioner Family; Visit Provider Physician Assistant | DX: Z00.00 Encounter for general adult medical examination without abnormal findings (principal) | CPT/HCPCS: 99222 ==

== ENCOUNTER → 2023-03-04 23:13 | Outpatient (BNV) | payer OTHER, SELFPAY | PROVIDERS: Admitting Provider Psychiatry & Neurology Psychiatry; PCP Nurse Practitioner Family; Visit Provider Psychiatry & Neurology Psychiatry | DX: F33.2 Major depressive disorder, recurrent severe without psychotic features (principal); F43.11 Post-traumatic stress disorder, acute | CPT/HCPCS: 99231; 99232 ==